=== PATIENT | male | born 1960 | race Caucasian/White ===

== ENCOUNTER 2016-02-11 15:33 | Emergency (ER) | payer OTHER ==
[2016-02-11 15:59] VITALS: TEMP 97.6
[2016-02-11] MEDS ORDERED: SODIUM CHLORIDE 0.9% 1,000 ML IV STA (17:45)
--- NOTE | 2016-02-11 17:50 | ED ---
Recheck HPI - General Chief Complaint: Recheck/Abnormal Lab/Rx Stated Complaint: Irregular Heartbeat/Pulse Time Seen by Provider: 02/11/16 17:34 Source: patient, family, RN notes reviewed, old records reviewed Mode of arrival: ambulatory Limitations: no limitations - History of Present Illness Initial Comments: This is a 55-year-old male with a history of recent diagnosis of TIA and rapid atrial fibrillation who presents today with complaints of episodes of not feeling well. He has had heart rates have been bouncing between the 70s and 90s his blood pressure is been up and down he's felt lethargic for last 2 days and sleeping a lot he has had chills and sweats feeling clammy at times. No overt chest pain no cough no rhinorrhea earaches sore throat no dysuria or hematuria. He normally has had higher blood pressure lately is been running in the low 100s MD Complaint: other - Related Data Home Medications Medication Instructions Recorded Confirmed Dexlansoprazole [Dexilant] 60 mg PO QAM 06/12/15 02/11/16 Lisinopril [Zestril] 10 mg PO QAM 06/12/15 02/11/16 Tadalafil [Cialis] 5 mg PO QAM 06/12/15 02/11/16 Tamsulosin [Flomax] 0.4 mg PO QAM 06/12/15 02/11/16 Varenicline [Chantix] 1 mg PO BID 06/12/15 02/11/16 Atenolol [Tenormin] 25 mg PO QAM 01/21/16 02/11/16 Aspirin EC [Ecotrin Low Dose] 81 mg PO DAILY 02/11/16 02/11/16 Previous Rx's Medication Instructions Recorded Acetaminophen Tab [Tylenol] 650 mg PO Q4HR PRN #0 tab 01/17/16 Propafenone [Rythmol] 150 mg PO TID #90 tab 01/17/16 Tapentadol HCl [Nucynta] 75 mg PO Q6HR PRN #120 tablet 01/27/16 Apixaban [Eliquis] 5 mg PO BID #60 tab 01/28/16 Atorvastatin [Lipitor] 80 mg PO HS #30 tab 01/28/16 Gabapentin 1,600 mg PO TID #42 tablet 01/28/16 Psyllium Husk 100% [Metamucil 6 gm PO DAILY #30 packet 01/28/16 Packet] Allergies Allergy/AdvReac Type Severity Reaction Status Date / Time No Known Allergies Allergy Verified 02/11/16 17:59 Review of Systems ROS Statement: Those systems with pertinent positive or pertinent negative responses have been documented in the HPI. ROS Other: All systems not noted in ROS Statement are negative. Past Medical History Past Medical History: Atrial Fibrillation, GERD/Reflux, Hypertension, Musculoskeletal Disorder, Prostate Disorder Additional Past Medical History / Comment(s): Degenerative disc dx in back, ENLARGED PROSTATE, testicular hypofunction, arthritis History of Any Multi-Drug Resistant Organisms: None Reported Past Surgical History: Back Surgery, Orthopedic Surgery, Tonsillectomy Additional Past Surgical History / Comment(s): @ 3 yrs old had a valve sx(OPEN HEART), back & neck fused, back sx, uvula removed, colonoscopy & egd (08/21/15) Past Anesthesia/Blood Transfusion Reactions: No Reported Reaction Past Psychological History: No Psychological Hx Reported Smoking Status: Current every day smoker Past Alcohol Use History: Daily Additional Past Alcohol Use History / Comment(s): smoking: started 1972-WAS 1 1/ 2 PPD NOW DOWN TO 1/2 PPD WITH CHANTIX. ETOH: "about 3 in a week" Past Drug Use History: None Reported - Past Family History Mother Family Medical History: Rheumatoid Arthritis ([place]) Father Family Medical History: Myocardial Infarction ([place]) General Exam - General Exam Comments Initial Comments: This is a well-developed well-nourished awake alert oriented history male Limitations: no limitations General appearance: alert, anxious Head exam: Present: atraumatic, normocephalic, normal inspection Eye exam: Present: normal appearance, PERRL, EOMI. Absent: scleral icterus, conjunctival injection, periorbital swelling ENT exam: Present: normal exam, mucous membranes moist Neck exam: Present: normal inspection. Absent: tenderness, meningismus, lymphadenopathy Respiratory exam: Present: normal lung sounds bilaterally. Absent: respiratory distress, wheezes, rales, rhonchi, stridor Cardiovascular Exam: Present: regular rate, normal rhythm, normal heart sounds. Absent: systolic murmur, diastolic murmur, rubs, gallop, clicks GI/Abdominal exam: Present: soft, normal bowel sounds. Absent: distended, tenderness, guarding, rebound, rigid Extremities exam: Present: normal inspection, full ROM, normal capillary refill. Absent: tenderness, pedal edema, joint swelling, calf tenderness Back exam: Present: normal inspection Neurological exam: Present: alert, oriented X3, CN II-XII intact Psychiatric exam: Present: normal affect, normal mood Skin exam: Present: warm, dry, intact, normal color. Absent: rash Course Vital Signs 02/11/16 02/11/16 15:51 17:58 Temperature 97.6 F Pulse Rate 59 L 74 Respiratory 18 16 Rate Blood Pressure 143/79 142/83 O2 Sat by Pulse 97 98 Oximetry Medical Decision Making - Medical Decision Making The patient remained asymptomatic since he arrived. I did discuss the findings with him and his . His lab work and x-rays pills EKG are unremarkable. Patient be discharged with instruction to follow-up with his doctor and return when necessary - Lab Data Result diagrams: 02/11/16 18:00 02/11/16 18:00 Lab Results 02/11/16 02/11/16 02/11/16 Range/Units 18:00 18:00 18:00 WBC 7.5 (3.8-10.6) k/uL RBC 4.56 (4.30-5.90) m/uL Hgb 14.2 (13.0-17.5) gm/dL Hct 41.2 (39.0-53.0) % MCV 90.3 (80.0-100.0) fL MCH 31.1 (25.0-35.0) pg MCHC 34.5 (31.0-37.0) g/dL RDW 13.3 (11.5-15.5) % Plt Count 227 (150-450) k/uL Neutrophils % 68 % Lymphocytes % 21 % Monocytes % 6 % Eosinophils % 4 % Basophils % 0 % Neutrophils # 5.1 (1.3-7.7) k/uL Lymphocytes # 1.6 (1.0-4.8) k/uL Monocytes # 0.4 (0-1.0) k/uL Eosinophils # 0.3 (0-0.7) k/uL Basophils # 0.0 (0-0.2) k/uL PT (9.0-12.0) sec INR (<1.1) APTT (22.0-30.0) sec Sodium 142 (137-145) mmol/L Potassium 4.0 (3.5-5.1) mmol/L Chloride 103 (98-107) mmol/L Carbon Dioxide 26 (22-30) mmol/L Anion Gap 13 mmol/L BUN 12 (9-20) mg/dL Creatinine 0.95 (0.66-1.25) mg/dL Est GFR (MDRD) Af Amer >60 (>60 ml/min/1.73 sqM) Est GFR (MDRD) Non-Af >60 (>60 ml/min/1.73 sqM) Glucose 92 (74-99) mg/dL Calcium 9.4 (8.4-10.2) mg/dL Magnesium 2.0 (1.6-2.3) mg/dL Total Bilirubin 0.7 (0.2-1.3) mg/dL AST 21 (17-59) U/L ALT 43 (21-72) U/L Alkaline Phosphatase 103 (38-126) U/L Total Creatine Kinase 72 (55-170) U/L CK-MB (CK-2) 0.5 (0.0-2.4) ng/mL CK-MB (CK-2) Rel Index 0.7 Troponin I <0.012 (0.000-0.034) ng/mL Total Protein 6.7 (6.3-8.2) g/dL Albumin 4.2 (3.5-5.0) g/dL TSH 1.580 (0.465-4.680) mIU/L 02/11/16 Range/Units 18:00 WBC (3.8-10.6) k/uL RBC (4.30-5.90) m/uL Hgb (13.0-17.5) gm/dL Hct (39.0-53.0) % MCV (80.0-100.0) fL MCH (25.0-35.0) pg MCHC (31.0-37.0) g/dL RDW (11.5-15.5) % Plt Count (150-450) k/uL Neutrophils % % Lymphocytes % % Monocytes % % Eosinophils % % Basophils % % Neutrophils # (1.3-7.7) k/uL Lymphocytes # (1.0-4.8) k/uL Monocytes # (0-1.0) k/uL Eosinophils # (0-0.7) k/uL Basophils # (0-0.2) k/uL PT 10.0 (9.0-12.0) sec INR 1.0 (<1.1) APTT 26.4 (22.0-30.0) sec Sodium (137-145) mmol/L Potassium (3.5-5.1) mmol/L Chloride (98-107) mmol/L Carbon Dioxide (22-30) mmol/L Anion Gap mmol/L BUN (9-20) mg/dL Creatinine (0.66-1.25) mg/dL Est GFR (MDRD) Af Amer (>60 ml/min/1.73 sqM) Est GFR (MDRD) Non-Af (>60 ml/min/1.73 sqM) Glucose (74-99) mg/dL Calcium (8.4-10.2) mg/dL Magnesium (1.6-2.3) mg/dL Total Bilirubin (0.2-1.3) mg/dL AST (17-59) U/L ALT (21-72) U/L Alkaline Phosphatase (38-126) U/L Total Creatine Kinase (55-170) U/L CK-MB (CK-2) (0.0-2.4) ng/mL CK-MB (CK-2) Rel Index Troponin I (0.000-0.034) ng/mL Total Protein (6.3-8.2) g/dL Albumin (3.5-5.0) g/dL TSH (0.465-4.680) mIU/L - Radiology Data Radiology results: report reviewed (Review the x-ray shows no acute findings.), image reviewed Disposition Clinical Impression: Feared condition not demonstrated, History of atrial fibrillation Disposition: HOME SELF-CARE Condition: Good Instructions: Atrial Fibrillation (ED)
[2016-02-11 18:05] LABS: Basophils % (A) 0 %; CH 31.9; CHCM 35.5; Eosinophils # (A) 0.3 k/uL (0-0.7); Eosinophils % (A) 4 %; HCT 41.2 % (39.0-53.0); HDW 2.69; HGB 14.2 gm/dL (13.0-17.5); Luc # (Auto) 0.12; Luc % (Auto) 2; Lymphocytes # (A) 1.6 k/uL (1.0-4.8); Lymphocytes % (A) 21 %; MCH 31.1 pg (25.0-35.0); MCHC 34.5 g/dL (31.0-37.0); MCV 90.3 fL (80.0-100.0); Mean Platelet Volume 6.6; Monocytes # (A) 0.4 k/uL (0-1.0); Monocytes % (A) 6 %; Neutrophils # (A) 5.1 k/uL (1.3-7.7); Neutrophils % (A) 68 %; RBC 4.56 m/uL (4.30-5.90); RDW 13.3 % (11.5-15.5); WBC 7.5 k/uL (3.8-10.6); WBC (Perox) 7.53
[2016-02-11 18:16] LABS: Partial Thromboplastin Time 26.4 sec (22.0-30.0)
[2016-02-11 18:22] LABS: ALT 43 U/L (21-72); AST 21 U/L (17-59); Alkaline Phosphatase 103 U/L (38-126); Anion Gap 13 mmol/L; Blood Urea Nitrogen 12 mg/dL (9-20); Calcium 9.4 mg/dL (8.4-10.2); Carbon Dioxide 26 mmol/L (22-30); Chloride 103 mmol/L (98-107); Glucose 92 mg/dL (74-99); Non-African American GFR(MDRD) >60 (>60 ml/min/1.73 sqM); Sodium 142 mmol/L (137-145); Total Bilirubin 0.7 mg/dL (0.2-1.3); Total Protein 6.7 g/dL (6.3-8.2)
[2016-02-11 18:23] LABS: Creatine Kinase 72 U/L (55-170)
[2016-02-11 18:36] LABS: Creatine Kinase MB 0.5 ng/mL (0.0-2.4); Troponin I <0.012 ng/mL (0.000-0.034)
--- NOTE | 2016-02-11 19:36 | XR ---
EXAMINATION TYPE: XR chest 2V DATE OF EXAM: 02/11/2016 7:12 PM COMPARISON: Prior chest x-ray dating January 2016 HISTORY: Atrial fibrillation, dysrhythmia TECHNIQUE: Frontal and lateral views of the chest are obtained. FINDINGS: There is no focal air space opacity, pleural effusion, or pneumothorax seen. The cardiac silhouette size is within normal limits. Postop changes noted to the cervical spine. There are overl divya cardiac leads. Patient is rotated. Some prominent interstitial markings are not significantly ch anged. There is deformity of the posterior left fourth rib as on prior exam. Prominent lung markings suggestive of underlying COPD. The osseous structures are intact. IMPRESSION: Stable exam, no acute abnormality.
[2016-02-11 20:19] VITALS: BP 161/96; PULSE 73; RESP 18
== END 2016-02-11 20:18 | disposition home or self-care (01) ==
LOC: EC 15:33
DX: I48.91 Unspecified atrial fibrillation (principal); I10 Essential (primary) hypertension; K21.9 Gastro-esophageal reflux disease without esophagitis; N40.0 Benign prostatic hyperplasia without lower urinary tract symptoms; F17.200 Nicotine dependence, unspecified, uncomplicated; Z71.1 Person with feared health complaint in whom no diagnosis is made; Z79.01 Long term (current) use of anticoagulants; Z79.82 Long term (current) use of aspirin; Z79.899 Other long term (current) drug therapy
CPT/HCPCS: 36415; 71020; 80053; 82550; 82553; 83735; 84443; 84484; 85025; 85610; 85730; 93005; 96372; 99283

== ENCOUNTER → 2016-03-02 | Outpatient (CLI) | payer OTHER ==
[2016-03-02 11:49] LABS: Partial Thromboplastin Time 28.4 sec (22.0-30.0)
== END | disposition home or self-care (01) ==
LOC: LABWHC1 11:14
PROVIDERS: ATTEND Physical Medicine & Rehabilitation
DX: M54.5 Low back pain (principal); G89.29 Other chronic pain; G89.4 Chronic pain syndrome; M47.817 Spondylosis without myelopathy or radiculopathy, lumbosacral region; M51.17 Intervertebral disc disorders with radiculopathy, lumbosacral region; M54.2 Cervicalgia; F10.10 Alcohol abuse, uncomplicated; M54.30 Sciatica, unspecified side
CPT/HCPCS: 36415; 85610; 85730

== ENCOUNTER → 2016-03-03 | Outpatient (CLI) | payer OTHER | END | disposition home or self-care (01) | LOC: LABWHC1 16:10 | PROVIDERS: ATTEND Physical Medicine & Rehabilitation | DX: M51.17 Intervertebral disc disorders with radiculopathy, lumbosacral region (principal); M47.817 Spondylosis without myelopathy or radiculopathy, lumbosacral region; F10.10 Alcohol abuse, uncomplicated; G89.4 Chronic pain syndrome; M54.5 Low back pain; M54.2 Cervicalgia | CPT/HCPCS: 36415; 84402; 84403 ==

== ENCOUNTER → 2016-03-05 | Outpatient (CLI) | payer OTHER ==
[2016-03-05 16:20] LABS: EKG EKG PERFORMED
[2016-03-05 17:12] LABS: Basophils % (A) 1 %; CH 31.8; CHCM 34.8; Eosinophils # (A) 0.2 k/uL (0-0.7); Eosinophils % (A) 4 %; HCT 39.8 % (39.0-53.0); HDW 2.69; HGB 13.3 gm/dL (13.0-17.5); Luc # (Auto) 0.09; Luc % (Auto) 2; Lymphocytes # (A) 1.5 k/uL (1.0-4.8); Lymphocytes % (A) 28 %; MCH 30.5 pg (25.0-35.0); MCHC 33.3 g/dL (31.0-37.0); MCV 91.6 fL (80.0-100.0); Mean Platelet Volume 7.6; Monocytes # (A) 0.3 k/uL (0-1.0); Monocytes % (A) 6 %; Neutrophils # (A) 3.3 k/uL (1.3-7.7); Neutrophils % (A) 60 %; RBC 4.35 m/uL (4.30-5.90); RDW 12.9 % (11.5-15.5); WBC 5.5 k/uL (3.8-10.6); WBC (Perox) 5.99
[2016-03-05 17:23] LABS: INR 0.9 (<1.1); Partial Thromboplastin Time 25.4 sec (22.0-30.0); Prothrombin Time 9.7 sec (9.0-12.0)
[2016-03-05 17:36] LABS: ALT 91 U/L (21-72); AST 49 U/L (17-59); Alkaline Phosphatase 99 U/L (38-126); Anion Gap 12 mmol/L; Blood Urea Nitrogen 16 mg/dL (9-20); Calcium 9.2 mg/dL (8.4-10.2); Carbon Dioxide 27 mmol/L (22-30); Chloride 102 mmol/L (98-107); Glucose 85 mg/dL (74-99); Non-African American GFR(MDRD) >60 (>60 ml/min/1.73 sqM); Potassium 4.5 mmol/L (3.5-5.1); Sodium 141 mmol/L (137-145); Total Protein 6.9 g/dL (6.3-8.2)
== END | disposition home or self-care (01) ==
LOC: LABPAT 16:08
PROVIDERS: ATTEND Orthopaedic Surgery
DX: Z01.810 Encounter for preprocedural cardiovascular examination (principal); Z01.812 Encounter for preprocedural laboratory examination
CPT/HCPCS: 80053; 85025; 85610; 85730; 87070; 93005

== ENCOUNTER 2016-03-23 15:20 | Inpatient (IN) | payer OTHER ==
[2016-03-18 13:35] VITALS: BMI 26.9
[2016-03-24] MEDS ORDERED: ACETAMINOPHEN TAB 500 MG TAB PO ONE (05:00)
[2016-03-24] MEDS ORDERED: MELOXICAM 7.5 MG TAB PO ONE (05:00)
[2016-03-24] MEDS ORDERED: TRANEXAMIC ACID 1,000 MG in SODIUM CHLORIDE 0.9% 100 ML IVPB ONE ×4 (05:00)
[2016-03-24] MEDS ORDERED: ceFAZolin 2 GM in SODIUM CHLORIDE 0.9% 100 ML IVPB ONE (05:00)
[2016-03-24] MEDS ORDERED: LACTATED RINGERS 1,000 ML IV SCH (05:35)
[2016-03-24] MEDS ORDERED: ONDANSETRON 4 MG/2 ML VIAL IVP ONE (05:35)
[2016-03-24] MEDS ORDERED: MIDAZOLAM 2 MG/2 ML VIAL IV PRN (05:35)
[2016-03-24] MEDS ORDERED: DEXAMETHASONE SOD PHOSPHATE 10 MG/ML 1 ML VIAL IV ONE (05:35)
[2016-03-24] MEDS ORDERED: SCOPOLAMINE 1.5MG/72HR PATCH TRANSDERM ONE (05:35)
[2016-03-24] MEDS ORDERED: fentaNYL (PF) 50 MCG/ML 2 ML AMP ONE (11:33)
[2016-03-24] MEDS ORDERED: SUCCINYLCHOLINE CHLORIDE 100 MG/5 ML SYR IV ONE (11:33)
[2016-03-24] MEDS ORDERED: ROCURONIUM BROMIDE 10 MG/ML 10 ML VIAL IV ONE (11:33)
[2016-03-24] MEDS ORDERED: PROPOFOL 10 MG/ML 20 ML VIAL IV ONE (11:33)
[2016-03-24] MEDS ORDERED: NEOSTIGMINE 1 MG/ML 10 ML VIAL ONE (11:33)
[2016-03-24] MEDS ORDERED: HYDROmorphone (PF) 1 MG/ML ONE (11:33)
[2016-03-24] MEDS ORDERED: GLYCOPYRROLATE 0.2 MG/ML 2 ML VIAL ONE (11:33)
[2016-03-24] MEDS ORDERED: MIDAZOLAM 2 MG/2 ML VIAL ONE (11:33)
[2016-03-24] MEDS ORDERED: LIDOCAINE 1% INJ 10MG/ML (20 ML MDV) ONE (11:33)
[2016-03-24] MEDS: ROPIVACAINE 246.25 MG, EPINEPHrine 0.5 MG, KETOROLAC 30 MG, cloNIDine HCL/PF 80 MCG, WA... MISCELLANE ONE ×10 (12:08→12:28)
[2016-03-24] MEDS ORDERED: ceFAZolin 3,000 MG in SODIUM CHLORIDE 0.9% IRRIGATIO 3,000 ML IRRIGATION ONE (12:08)
[2016-03-24] MEDS ORDERED: LACTATED RINGERS 1,000 ML IV ONE ×2 (12:20→14:36)
--- NOTE | 2016-03-24 12:58 | P.OP ---
Date of Procedure: 03/24/16 Preoperative Diagnosis: Severe osteoarthritis right knee Postoperative Diagnosis: Severe osteoarthritis right knee Procedure(s) Performed: Right total knee arthroplasty Implants: [employer] Oxinium femoral component size 5, left [employer] Claudia II left nonporous tibial baseplate size 4 [employer] size 15 mm Legion XLPE dished articular insert, size 3-4 [employer] Claudia II resurfacing patellar component, 32 mm All components were cemented using Tucker bone cement.. The articulation is ceramic on polyethylene. Anesthesia: GETA Surgeon: Schuyler Vang Marine Engine Machinist #1: Nicky Saldivar Estimated Blood Loss (ml): 50 Pathology: other (Bone and cartilage) Condition: stable Disposition: PACU Indications for Procedure: After failure of conservative treatment we discussed the surgical and nonsurgical treatment options at length. Patient wishes to proceed with a total knee arthroplasty. Complications specific to this procedure were discussed at length, including but not limited to infection, bleeding, stiffness , and nerve injury. Patient is aware of all these complications and informed consent was obtained Operative Findings: The operative findings are consistent with severe osteoarthritis of the right knee Description of Procedure: Patient was seen in the preoperative area consent was reviewed and operative site was marked with a skin marker. Patient was then brought to the operating room and given preoperative antibiotics intravenously. A general anesthetic was administered by the anesthesia department. A tourniquet was placed on the upper thigh and the lower extremity was prepped and draped in usual sterile fashion. A gram of transexamic acid was given. A universal timeout was then performed which confirmed the patient's name, surgical site, ALLERGIES, and consent. The lower extremity was then exsanguinated and tourniquet was inflated to 250 mmHg. A standard and anterior midline approach to the knee was performed. The skin and subcutaneous tissue was dissected down to the patellar tendon. A medial parapatellar arthrotomy was then performed. The knee was then extended, the patellar was everted, and the knee was again flexed. Anterior horns of both menisci were excised, and a minimal medial release was performed secondary to the valgus deformity of the knee. On gross visual inspection, there was complete loss of articular cartilage in the lateral and patellofemoral joint spaces. There were multiple periarticular osteophytes which were then removed with a Ronguer. The femoral canal was then opened with the appropriate drill, and the intramedullary femoral cutting guide was then placed and set for 4 of valgus. The distal femoral cutting block was then pinned in place, and the distal femur was then cut. The cutting block was then removed and the cut was checked for flatness. Next, the sizing guide was then placed and set for 3 external rotation based off of the epicondylar axis and Whitesides line. After the femur was sized, the appropriate 4-in-1 cutting block was then pinned in place. The anterior condyles were cut without notching. The posterior and chamfer cuts were performed while protecting the collateral ligaments. The cutting block was then removed, and the femoral canal was plugged with autologous bone. Attention was then directed to the tibia. The remaining ACL was removed with a Ronguer, and the tibia was then gently subluxed forward with a large bent knee retractor. Any remaining menisci was excised. The posterior lateral corner was cauterized in order to cauterize the lateral geniculate artery. The extra medullary tibial cutting guide was then placed, set for the appropriate rotation , slope, and depth of resection. The proximal tibia cutting guide was then pinned in place. Proximal tibia was then cut and sized. Next trials were then placed with the appropriate-sized insert. The knee was able to fully extend and flex to 130 and was stable throughout all range of motion. The knee was then extended, patella everted. Patella was then measured, and then using an osteotomy guide, the patella was cut at the appropriate level. The patella was then measured and drilled and the patella trial was then placed. The knee was then taken through range of motion with the patella trial and the patella tracked normally. The knee was then extended patella trial was then removed and the patella was everted. Knee was then flexed and lug holes were drilled through the femoral trial and the femoral trial was then removed. The tibial was then exposed, and the tibial broach guide was then pinned in place after it was set for the appropriate rotation to allow for the most coverage without overhang. The tibia was then broached. The cut surfaces of bone were then irrigated with pulsatile lavage. The posterior structures were injected with the ropivacaine solution. The knee was also irrigated with Irrisept solution. The components were then opened, the cement was mixed, and the components were then cemented in place. The cement was allowed to harden with the knee in full extension. While the cement was hardening, the remaining soft tissues were injected with the ropivacaine solution. After the cemented hardened. The tourniquet was released, and hemostasis was obtained. A second gram of transexamic acid was given. The knee was again irrigated. The knee was again taken through range of motion and found to be stable throughout all range of motion of 0-130, and the patella tracked normally. The fascia was then closed with #2 strata fix suture. The subcutaneous tissue was closed with 3-0 Vicryl and 3-0 strata fix. Dermabond tape was used for the skin, and the patient was placed in a sterile dressing. Patient was then transferred to recovery room in stable condition. The mechanic assistant CARLIN Davis was required due the complexity surgery and the need for a skilled assistant professor surgical technology. She assisted in positioning, draping , retraction, and closure of the wound.
[2016-03-24] MEDS ORDERED: HYDROmorphone 1 MG/ML 1 ML SYRINGE IVP PRN ×3 (13:17)
[2016-03-24] MEDS ORDERED: NALOXONE 0.4 MG/ML 1 ML VIAL IV PRN (13:17)
[2016-03-24] MEDS ORDERED: ONDANSETRON 4 MG/2 ML VIAL IVP PRN (13:17)
[2016-03-24] MEDS ORDERED: hydrOXYzine PAMOATE 25 MG CAP PO PRN (13:17)
[2016-03-24] MEDS ORDERED: DIAZEPAM 5 MG TAB PO PRN ×2 (13:17)
[2016-03-24] MEDS ORDERED: BISACODYL 10 MG SUPP RECTAL PRN (13:17)
[2016-03-24] MEDS ORDERED: MAGNESIUM HYDROXIDE 2,400 MG/10 ML CUP PO PRN (13:17)
[2016-03-24] MEDS: HYDROmorphone 1 MG/ML 1 ML SYRINGE IVP PRN ×7 (13:42→16:13)
--- NOTE | 2016-03-24 13:50 | XR ---
EXAMINATION TYPE: XR knee limited RT DATE OF EXAM: 03/24/2016 1:45 PM COMPARISON: NONE TECHNIQUE: One view submitted HISTORY: Post op FINDINGS: There is a prosthetic knee in near anatomic alignment. There is soft tissue edema and emphysema. IMPRESSION: 1. Postoperative change. Appears in near-anatomic alignment
[2016-03-24] MEDS: HYDROmorphone PCA 5 MG/25 ML SYRINGE IV PRN ×2 (18:08→20:37)
[2016-03-24] MEDS: ceFAZolin 2 GM in SODIUM CHLORIDE 0.9% 100 ML IVPB SCH (19:48)
[2016-03-24] MEDS: SENNOSIDES-DOCUSATE SODIUM 1 EACH TAB PO SCH (19:48)
[2016-03-24] MEDS: LACTATED RINGERS 1,000 ML IV SCH (20:36)
[2016-03-25] MEDS ORDERED: ENOXAPARIN 100 MG/ML SYRINGE SQ STA (01:55)
[2016-03-25] MEDS ORDERED: ENOXAPARIN 40 MG/0.4 ML SYRINGE SQ STA (02:04)
[2016-03-25] MEDS: ceFAZolin 2 GM in SODIUM CHLORIDE 0.9% 100 ML IVPB SCH (02:43)
[2016-03-25] MEDS: LACTATED RINGERS 1,000 ML IV SCH ×2 (02:44→19:39)
[2016-03-25] MEDS: HYDROmorphone PCA 5 MG/25 ML SYRINGE IV PRN ×5 (05:28→23:18)
[2016-03-25 07:22] LABS: Basophils % (A) 0 %; CH 31.6; CHCM 34.5; Eosinophils % (A) 0 %; HDW 2.61; HGB 11.8 gm/dL (13.0-17.5); Luc # (Auto) 0.15; Luc % (Auto) 2; Lymphocytes # (A) 1.2 k/uL (1.0-4.8); Lymphocytes % (A) 13 %; MCHC 33.6 g/dL (31.0-37.0); MCV 92.1 fL (80.0-100.0); Monocytes # (A) 0.5 k/uL (0-1.0); Monocytes % (A) 5 %; Neutrophils # (A) 7.8 k/uL (1.3-7.7); Neutrophils % (A) 81 %; RDW 12.6 % (11.5-15.5); WBC 9.6 k/uL (3.8-10.6); WBC (Perox) 10.02
[2016-03-25] MEDS ORDERED: GABAPENTIN 400 MG CAP PO PRN (08:44)
--- NOTE | 2016-03-25 09:01 | P.PN ---
Subjective Principal diagnosis: Status post right total knee arthroplasty This is a pleasant 55-year-old gentleman who is status post right total knee arthroplasty. Today is postoperative day #1. The patient was seen and evaluated with Dr. Schuyler Vang. He complains of some sciatic type pain which is chronic. He is currently on the PHOTOGRAPHIC DOUBLE pump. He has had some wheezing as well which he states is not unusual for him. Updrafts were ordered. He has no other new complaints at this time. Objective - Vital Signs Vital signs: Vital Signs Temp 98.3 F 03/25/16 07:00 Pulse 92 03/25/16 08:00 Resp 16 03/25/16 08:00 BP 116/80 03/25/16 07:00 Pulse Ox 94 L 03/25/16 07:00 Intake & Output 03/24/16 03/25/16 03/25/16 18:59 06:59 18:59 Intake Total 2301 1825 250 Output Total 50 650 Balance 2251 1175 250 Weight 95.254 kg Intake: IV 2301 Intake, IV Titration 1025 Amount Lactated Ringers 1,000 ml 825 @ 75 mls/hr IV .[id number] [facility] Rx#:[id number] ceFAZolin 2 gm In Sodium 200 Chloride 0.9% 100 ml @ 100 mls/hr IVPB ONCE ONE Rx#:[id number] Oral 800 250 Output: Post Void Residual 650 Estimated Blood Loss 50 - Exam The patient does not appear in acute distress. Alert and orientated 3. Dressing is clean dry and intact. Incision appears fine with no erythema or active drainage. He does have soft tissue swelling about the right knee. Calf is soft and nontender. Good foot and ankle motion without difficulty. Sensation and circulatory status is intact. - Labs CBC & Chem 7: 03/25/16 06:44 Labs: Abnormal Lab Results - Last 24 Hours (Table) 03/25/16 Range/Units 06:44 RBC 3.80 L (4.30-5.90) m/uL Hgb 11.8 L (13.0-17.5) gm/dL Hct 35.0 L (39.0-53.0) % Neutrophils # 7.8 H (1.3-7.7) k/uL Assessment and Plan (1) Status post right knee replacement Status: Acute (2) Primary osteoarthritis of right knee Status: Acute Plan: 1. Continue with routine postoperative care. Apply compressive Chucho bandage right knee 2. Anticoagulation as directed by cardiology 3. Physical therapy and CPM today. 4. Appreciate input from medicine. 5. Anticipate discharge to home with home care likely tomorrow.
[2016-03-25] MEDS: ALBUTEROL NEBULIZED 2.5 MG/3 ML INHALATION PRN ×2 (09:12→19:15)
[2016-03-25] MEDS: LISINOPRIL 10 MG TAB PO SCH (09:33)
[2016-03-25] MEDS: PROPAFENONE 150 MG TAB PO SCH ×3 (09:33→20:55)
[2016-03-25] MEDS: ATENOLOL 25 MG TAB PO SCH (09:33)
[2016-03-25] MEDS: PSYLLIUM HUSK 100% 6 GM PACKET PO SCH (09:34)
[2016-03-25] MEDS: TAMSULOSIN 0.4 MG CAP.ER.24H PO SCH (09:34)
[2016-03-25] MEDS: VARENICLINE 1 MG TAB PO SCH ×2 (09:34→19:40)
[2016-03-25] MEDS ORDERED: APIXABAN 5 MG TAB PO ONE (10:37)
[2016-03-25] MEDS: MELOXICAM 7.5 MG TAB PO SCH (11:11)
[2016-03-25] MEDS: ACETAMINOPHEN TAB 325 MG TAB PO PRN (11:13)
--- NOTE | 2016-03-25 12:22 | P.CRDCN ---
History of Present Illness Consult date: 03/25/16 History of present illness: This is a pleasant 55-year-old gentleman who sees Dr. Sanford as an outpatient with a past medical history significant for hypertension, dyslipidemia, paroxysmal atrial fibrillation, and history of stroke, was admitted to the hospital and underwent right knee arthroplasty yesterday which was uneventful. From the cardiac vascular standpoint overview, he is asymptomatic. He denies having any chest pain or discomfort or difficulty breathing. On physical examination, he seems to be in a normal sinus mechanism. The patient was started on anticoagulation with Eliquis today and I agree with it. Past Medical History Past Medical History: Atrial Fibrillation, GERD/Reflux, Hypertension, Osteoarthritis (OA), Prostate Disorder Additional Past Medical History / Comment(s): stroke-01/28/16, varicose veins, ENLARGED PROSTATE, testicular hypofunction History of Any Multi-Drug Resistant Organisms: None Reported Past Surgical History: Back Surgery, Cholecystectomy, Orthopedic Surgery, Tonsillectomy Additional Past Surgical History / Comment(s): heart valve sx(OPEN HEART) at age 3, neck fusion ,uvula removed, Past Anesthesia/Blood Transfusion Reactions: No Reported Reaction Past Psychological History: No Psychological Hx Reported Smoking Status: Former smoker Past Alcohol Use History: Occasional Additional Past Alcohol Use History / Comment(s): started smoking 02/09 PPD , quit 01/28/16 Past Drug Use History: None Reported - Past Family History Mother Family Medical History: No Reported History Father Family Medical History: Myocardial Infarction (MS) Medications and Allergies Home Medications Medication Instructions Recorded Confirmed Type Dexlansoprazole [Dexilant] 60 mg PO QAM 06/12/15 03/24/16 History Lisinopril [Zestril] 10 mg PO QAM 06/12/15 03/24/16 History Tadalafil [Cialis] 2.5 mg PO QAM 06/12/15 03/24/16 History Tamsulosin [Flomax] 0.4 mg PO QAM 06/12/15 03/24/16 History Varenicline [Chantix] 1 mg PO BID 06/12/15 03/24/16 History Atenolol [Tenormin] 25 mg PO QAM 01/21/16 03/24/16 History Enoxaparin [Lovenox] 100 mg SQ DIRECTED 03/18/16 03/24/16 History Gabapentin 1,600 mg PO Q4-6H PRN 03/18/16 03/24/16 History Nortriptyline [Pamelor] 100 mg PO HS 03/18/16 03/24/16 History Tapentadol HCl [Nucynta] 50 mg PO QID PRN 03/18/16 03/24/16 History Allergies Allergy/AdvReac Type Severity Reaction Status Date / Time No Known Allergies Allergy Verified 03/24/16 19:44 Physical Exam Vitals: Vital Signs Temp Pulse Pulse Pulse Resp BP Pulse Ox 03/25/16 12:03 98.1 F 89 16 138/75 93 L 03/25/16 09:25 90 03/25/16 09:12 90 03/25/16 08:00 92 16 03/25/16 07:00 98.3 F 92 16 116/80 94 L 03/25/16 01:40 98.0 F 92 16 93/64 94 L 03/24/16 21:21 96 03/24/16 20:00 97.8 F 79 16 120/79 90 L 03/24/16 18:39 85 16 156/70 96 03/24/16 18:25 73 16 133/86 96 03/24/16 18:06 73 16 142/95 96 03/24/16 17:31 73 16 146/96 96 03/24/16 17:00 82 16 148/85 96 03/24/16 16:31 142/80 03/24/16 16:29 70 16 130/90 96 03/24/16 16:14 72 16 130/90 96 03/24/16 16:00 67 16 140/88 96 03/24/16 15:45 75 16 143/85 96 03/24/16 15:30 79 16 142/81 96 03/24/16 15:15 81 16 133/91 96 03/24/16 15:00 74 16 131/80 96 03/24/16 14:45 73 16 137/86 96 03/24/16 14:33 68 16 136/75 96 03/24/16 14:16 66 20 129/79 94 L 03/24/16 14:00 68 20 141/77 94 L 03/24/16 13:42 73 20 141/81 94 L 03/24/16 13:30 73 20 127/72 94 L 03/24/16 13:16 97.6 F 73 20 127/72 94 L Intake and Output 03/24/16 03/25/16 03/25/16 22:59 06:59 14:59 Intake Total 1000 825 250 Output Total 650 Balance 1000 175 250 Intake: Intake, IV Titration 400 625 Amount Lactated Ringers 1,000 ml 300 525 @ 75 mls/hr IV .[id number] [facility] Rx#:[id number] ceFAZolin 2 gm In Sodium 100 100 Chloride 0.9% 100 ml @ 100 mls/hr IVPB ONCE ONE Rx#:[id number] Oral 600 200 250 Output: Post Void Residual 650 Other: Weight 95.254 kg Patient Weight 03/26/16 06:59 Weight 95.254 kg - Constitutional General appearance: no acute distress - Respiratory Respiratory: bilateral: CTA - Cardiovascular Rhythm: regular Heart sounds: normal: S1, S2 Results 03/25/16 06:44 CBC 03/25/16 Range/Units 06:44 WBC 9.6 (3.8-10.6) k/uL RBC 3.80 L (4.30-5.90) m/uL Hgb 11.8 L (13.0-17.5) gm/dL Hct 35.0 L (39.0-53.0) % Plt Count 194 (150-450) k/uL Current Medications Generic Name Dose Route Start Last Admin Trade Name Freq PRN Reason Stop Dose Admin Acetaminophen 650 mg 03/24/16 13:30 03/25/16 11:13 Tylenol Tab PO 650 mg Q6HR PRN Administration Fever and/ or Mild Pain Albuterol Sulfate 2.5 mg 03/25/16 01:57 03/25/16 09:12 Ventolin Nebulized INHALATION 2.5 mg RT-TID PRN Administration Shortness Of Breath Or Wheezing Apixaban 5 mg 03/25/16 21:00 Eliquis PO BID REED Atenolol 25 mg 03/25/16 09:00 03/25/16 09:33 Tenormin PO 25 mg QAM REED Administration Atorvastatin Calcium 80 mg 03/25/16 21:00 Lipitor PO HS REED Bisacodyl 10 mg 03/24/16 13:17 Dulcolax RECTAL DAILY PRN Constipation Diazepam 2.5 mg 03/24/16 13:17 Valium PO Q8HR PRN Mild Spasms Diazepam 5 mg 03/24/16 13:17 Valium PO Q8HR PRN Moderate to Severe Spasms Gabapentin 1,600 mg 03/25/16 08:44 Neurontin PO Q4HR PRN Pain Hydromorphone HCl 1 mg 03/24/16 13:17 Dilaudid IVP Q3HR PRN Pain Scale 7 to 10 Hydromorphone HCl 0.5 mg 03/24/16 13:17 Dilaudid IVP Q3HR PRN Pain Scale 4 to 6 Hydromorphone HCl 0.25 mg 03/24/16 13:17 Dilaudid IVP Q3HR PRN Pain Scale 1 to 3 Hydromorphone HCl 5 mg 03/24/16 13:30 03/25/16 09:23 Dilaudid Service Now Developer IV 5 mg DIRECTED PRN Administration PER PROTOCOL Protocol Hydroxyzine Pamoate 25 mg 03/24/16 13:17 Vistaril PO Q4HR PRN Nausea, Anxiety, Pain Control Lactated Ringer's 1,000 mls @ 75 mls/hr 03/24/16 13:30 03/25/16 02:44 Lactated Ringers IV 75 mls/hr .[id number] REED Administration Lisinopril 10 mg 03/25/16 09:00 03/25/16 09:33 Zestril PO 10 mg QAM REED Administration Magnesium Hydroxide 2,400 mg 03/24/16 13:17 03/25/16 07:21 Milk Of Magnesia PO 2,400 mg DAILY PRN Administration Constipation Meloxicam 7.5 mg 03/25/16 09:00 03/25/16 11:11 Mobic PO 7.5 mg DAILY REED Administration Naloxone HCl 0.2 mg 03/24/16 13:17 Narcan IV Q2M PRN Opioid Reversal Nortriptyline HCl 100 mg 03/25/16 21:00 Pamelor PO HS REED Ondansetron HCl 4 mg 03/24/16 13:17 Zofran IVP Q8HR PRN Nausea And Vomiting Propafenone HCl 150 mg 03/25/16 09:00 03/25/16 09:33 Rythmol PO 150 mg TID REED Administration Psyllium Hydrophilic Mucilloid 6 gm 03/25/16 09:00 03/25/16 09:34 Metamucil PO Not Given DAILY REED Senna/Docusate Sodium 2 each 03/24/16 21:00 03/24/16 19:48 Senokot-S PO 2 each HS REED Administration Tamsulosin HCl 0.4 mg 03/25/16 09:00 03/25/16 09:34 Flomax PO 0.4 mg QAM REED Administration Varenicline 1 mg 03/25/16 09:00 03/25/16 09:34 Chantix PO 1 mg BID REED Administration Intake and Output 03/24/16 03/25/16 03/25/16 22:59 06:59 14:59 Intake Total 1000 825 250 Output Total 650 Balance 1000 175 250 Intake: Intake, IV Titration 400 625 Amount Lactated Ringers 1,000 ml 300 525 @ 75 mls/hr IV .[id number] [facility] Rx#:[id number] ceFAZolin 2 gm In Sodium 100 100 Chloride 0.9% 100 ml @ 100 mls/hr IVPB ONCE ONE Rx#:[id number] Oral 600 200 250 Output: Post Void Residual 650 Other: Weight 95.254 kg Patient Weight 03/26/16 06:59 Weight 95.254 kg 03/25/16 06:44 Assessment and Plan Plan: Assessment #1 status post right knee arthroplasty #2 paroxysmal atrial fibrillation #4 hypertension #5 dyslipidemia The plan #1 agree about starting the patient on Eliquis #2 continue following up with him
--- NOTE | 2016-03-25 14:33 | P.CONS ---
History of Present Illness - Reason for Consult Consult date: 03/24/16 Medical management Requesting physician: Nicky Saldivar - Chief Complaint Right knee pain - History of Present Illness Patient is a 55-year-old male well known to Dr. Lee with medical history significant for paroxysmal atrial fibrillation, GERD, hypertension, degenerative disc disease, BPH, osteoarthritis of the right knee, lumbar radiculopathy, and chronic pain syndrome. Patient presented to the hospital for elective right total knee arthroplasty. Patient tolerated procedure well. Patient is evaluated on the surgical unit where he is currently sitting up in the chair. Patient complains of mild throat pain after intubation. Patient is also complaining of chronic sciatica pain to his right lumbar region radiating down his left leg. Denies chills, fevers, nausea, vomiting, shortness of breath, chest pain, or abdominal pain. Denies diarrhea or constipation. Patient is urinating without difficulty. Patient is currently using his [employer] pump for pain control. Past Medical History Past Medical History: Atrial Fibrillation, GERD/Reflux, Hypertension, Osteoarthritis (OA), Prostate Disorder Additional Past Medical History / Comment(s): stroke-01/28/16, varicose veins, ENLARGED PROSTATE, testicular hypofunction History of Any Multi-Drug Resistant Organisms: None Reported Past Surgical History: Back Surgery, Cholecystectomy, Orthopedic Surgery, Tonsillectomy Additional Past Surgical History / Comment(s): heart valve sx(OPEN HEART) at age 3, neck fusion ,uvula removed, Past Anesthesia/Blood Transfusion Reactions: No Reported Reaction Past Psychological History: No Psychological Hx Reported Smoking Status: Former smoker Past Alcohol Use History: Occasional Additional Past Alcohol Use History / Comment(s): started smoking 02/09 PPD , quit 01/28/16 Past Drug Use History: None Reported - Past Family History Mother Family Medical History: No Reported History Father Family Medical History: Myocardial Infarction (NM) Medications and Allergies Home Medications Medication Instructions Recorded Confirmed Type Dexlansoprazole [Dexilant] 60 mg PO QAM 06/12/15 03/24/16 History Lisinopril [Zestril] 10 mg PO QAM 06/12/15 03/24/16 History Tadalafil [Cialis] 2.5 mg PO QAM 06/12/15 03/24/16 History Tamsulosin [Flomax] 0.4 mg PO QAM 06/12/15 03/24/16 History Varenicline [Chantix] 1 mg PO BID 06/12/15 03/24/16 History Atenolol [Tenormin] 25 mg PO QAM 01/21/16 03/24/16 History Enoxaparin [Lovenox] 100 mg SQ DIRECTED 03/18/16 03/24/16 History Gabapentin 1,600 mg PO Q4-6H PRN 03/18/16 03/24/16 History Nortriptyline [Pamelor] 100 mg PO HS 03/18/16 03/24/16 History Tapentadol HCl [Nucynta] 50 mg PO QID PRN 03/18/16 03/24/16 History Allergies Allergy/AdvReac Type Severity Reaction Status Date / Time No Known Allergies Allergy Verified 03/24/16 19:44 Physical Exam Vitals: Vital Signs Temp Pulse Pulse Pulse Resp BP Pulse Ox 03/25/16 12:03 98.1 F 89 16 138/75 93 L 03/25/16 09:25 90 03/25/16 09:12 90 03/25/16 08:00 92 16 03/25/16 07:00 98.3 F 92 16 116/80 94 L 03/25/16 01:40 98.0 F 92 16 93/64 94 L 03/24/16 21:21 96 03/24/16 20:00 97.8 F 79 16 120/79 90 L 03/24/16 18:39 85 16 156/70 96 03/24/16 18:25 73 16 133/86 96 03/24/16 18:06 73 16 142/95 96 03/24/16 17:31 73 16 146/96 96 03/24/16 17:00 82 16 148/85 96 03/24/16 16:31 142/80 03/24/16 16:29 70 16 130/90 96 03/24/16 16:14 72 16 130/90 96 03/24/16 16:00 67 16 140/88 96 03/24/16 15:45 75 16 143/85 96 03/24/16 15:30 79 16 142/81 96 03/24/16 15:15 81 16 133/91 96 03/24/16 15:00 74 16 131/80 96 03/24/16 14:45 73 16 137/86 96 03/24/16 14:33 68 16 136/75 96 Intake and Output 03/24/16 03/25/16 03/25/16 22:59 06:59 14:59 Intake Total 1000 825 500 Output Total 650 300 Balance 1000 175 200 Intake: Intake, IV Titration 400 625 Amount Lactated Ringers 1,000 ml 300 525 @ 75 mls/hr IV .[id number] [id number] Rx#:[id number] ceFAZolin 2 gm In Sodium 100 100 Chloride 0.9% 100 ml @ 100 mls/hr IVPB ONCE ONE Rx#:[id number] Oral 600 200 500 Output: Urine 300 Post Void Residual 650 Other: Weight 95.254 kg Patient Weight 03/26/16 06:59 Weight 95.254 kg GENERAL: Pt awake and alert, well-appearing, well-nourished, and in no acute distress. HEAD: Atraumatic, normocephalic. EYES: Pupils equal and round, and reactive to light, sclera anicteric, conjunctiva are normal. ENT: Moist mucous membranes. NECK:Supple without lymphadenopathy or JVD. LUNGS: Breath sounds diminished with faint expiratory wheeze to auscultation bilaterally. HEART: Heart S1, S2, no S3 or S4. Regular rate and rhythm. No murmurs, rubs or gallops. ABDOMEN: Soft, nontender, nondistended, normoactive bowel sounds. EXTREMITIES: Palpable peripheral pulses. Right knee dressing dry and intact. NEUROLOGICAL: Pt oriented x 3. No focal deficits. Strength and sensation grossly intact. PSYCH: Normal mood, normal affect. SKIN: Warm, dry, intact. Normal turgor. No rashes or lesions. Results CBC & Chem 7: 03/25/16 06:44 Labs: Abnormal Lab Results - Last 24 Hours (Table) 03/25/16 Range/Units 06:44 RBC 3.80 L (4.30-5.90) m/uL Hgb 11.8 L (13.0-17.5) gm/dL Hct 35.0 L (39.0-53.0) % Neutrophils # 7.8 H (1.3-7.7) k/uL Assessment and Plan Plan: Impression: 1. Right knee osteoarthritis status post total right knee arthroplasty on 03/24. 2. Anemia, suspect secondary to acute blood loss and hemodilution. 3. Paroxysmal atrial fibrillation. 4. Degenerative disc disease. 5. Lumbar radiculopathy. 6. Chronic pain syndrome. 7. GERD. 8. Hypertension. 9. BPH. 10. History of nicotine dependence. 11. Dyslipidemia. Plan: Continue surgical management by orthopedic service. Home medications have been reviewed and resumed as appropriate. Continue current medications. Continue GI and DVT prophylaxis. Continue incentive spirometry 10 times while awake. Continue to follow with cardiology and orthopedic service. Repeat CBC in a.m. The above impression and plan have been discussed and directed by Dr Lee. Fitz CHAMBERLAIN acting as scribe for Dr. Lee.
[2016-03-25] MEDS: SENNOSIDES-DOCUSATE SODIUM 1 EACH TAB PO SCH (19:40)
[2016-03-25] MEDS: APIXABAN 5 MG TAB PO SCH (20:55)
[2016-03-25] MEDS ORDERED: ATORVASTATIN 80 MG TAB PO SCH (21:00)
[2016-03-25] MEDS ORDERED: NORTRIPTYLINE 25 MG CAP PO SCH (21:00)
[2016-03-26] MEDS: LACTATED RINGERS 1,000 ML IV SCH (05:30)
[2016-03-26] MEDS: ACETAMINOPHEN TAB 325 MG TAB PO PRN (07:49)
[2016-03-26 07:58] VITALS: BP 121/72; PULSE 100; RESP 16; TEMP 97.7
--- NOTE | 2016-03-26 09:06 | P.DS ---
Providers Date of admission: 03/24/16 09:36 Expected date of discharge: 03/26/16 Attending physician: Schuyler Vang Consults: 03/24/16 13:17 Consult Physician Routine Consulting Provider: Zuhair Lee Reason/Comments: medical management Do you want consulting provider notified?: Yes 03/24/16 13:31 Consult Physician Routine Consulting Provider: Samson Sanfodr Consult Reason/Comments: anticoagulation. Pt known to cardiology Do you want consulting provider notified?: Yes Primary care physician: Zuhair Lee - Discharge Diagnosis(es) (1) Primary osteoarthritis of right knee Current Visit: Yes Status: Acute (2) Status post right knee replacement Current Visit: Yes Status: Acute Hospital Course: This is a 55-year-old male who was last seen with complaint of continued right knee pain. The patient has a known history of degenerative arthritis of the right knee and presents to discuss surgical options. After discussion and consideration the patient elects to proceed with total right knee arthroplasty. The patient is seen preoperatively by Dr. Lee and cleared for surgery. The patient has history of chronic pain. His pain medications are managed by Dr. Sullivan. The patient is admitted to [facility] for total right knee arthroplasty. The procedures performed without complication or sequelae. Patient is doing fairly well postoperatively. He was having some pain management issues. He was placed on IV Dilaudid via [employer] as an inpatient. He had increased swelling to the knee and lower leg and was placed in a compressive Chucho bandage which did improve his swelling. Vital signs are stable at discharge. Labs are stable at discharge. the patient is ambulating well with walker with minimal assistance. The patient is discharged to home on postop day #2 pending medical clearance. He will continue his home pain medications as prescribed by Dr. Sullivan. He will resume his Eliquis per medical management. Please see orders and refer to the med rec for accurate list of medications. Patient Condition at Discharge: Good Plan - Discharge Summary New Discharge Prescriptions: Ketorolac [Toradol] 10 mg PO Q6HR #20 tab Discharge Medication List Dexlansoprazole [Dexilant] 60 mg PO QAM 06/12/15 [History] Lisinopril [Zestril] 10 mg PO QAM 06/12/15 [History] Tadalafil [Cialis] 2.5 mg PO QAM 06/12/15 [History] Tamsulosin [Flomax] 0.4 mg PO QAM 06/12/15 [History] Varenicline [Chantix] 1 mg PO BID 06/12/15 [History] Acetaminophen Tab [Tylenol] 650 mg PO Q4HR PRN #0 tab 01/17/16 [Rx] Propafenone [Rythmol] 150 mg PO TID #90 tab 01/17/16 [Rx] Atenolol [Tenormin] 25 mg PO QAM 01/21/16 [History] Apixaban [Eliquis] 5 mg PO BID #60 tab 01/28/16 [Rx] Atorvastatin [Lipitor] 80 mg PO HS #30 tab 01/28/16 [Rx] Psyllium Husk 100% [Metamucil Packet] 6 gm PO DAILY #30 packet 01/28/16 [Rx] Enoxaparin [Lovenox] 100 mg SQ DIRECTED 03/18/16 [History] Gabapentin 1,600 mg PO Q4-6H PRN 03/18/16 [History] Nortriptyline [Pamelor] 100 mg PO HS 03/18/16 [History] Tapentadol HCl [Nucynta] 50 mg PO QID PRN 03/18/16 [History] Ketorolac [Toradol] 10 mg PO Q6HR #20 tab 03/26/16 [Rx] Follow up Appointment(s)/Referral(s): [facility], [NON-STAFF] - As Needed Zuhair Lee MD [Primary Care Provider] - 1 Week Schuyler Vang DO [Doctor of Osteopathic Medicine] - 2 Weeks Ambulatory/Diagnostic Orders: Continuous Passive Motion (CPM) Machine [DME.AMB1] Location: Determined By Patient Activity/Diet/Wound Care/Special Instructions: Weightbearing as tolerated with a walker CPM daily Daily dressing changes, keep incision clean and dry Anticoagulation as directed by cardiology Resume Home Pain medications as previously directed. Call [facility] with questions or concerns [phone] Discharge Disposition: HOME WITH HOME HEALTH SERVICES
[2016-03-26] MEDS ORDERED: KETOROLAC 30 MG/ML 1 ML VIAL IM SCH ×2 (09:35→12:00)
[2016-03-26] MEDS: ATENOLOL 25 MG TAB PO SCH (09:37)
[2016-03-26] MEDS: LISINOPRIL 10 MG TAB PO SCH (09:37)
[2016-03-26] MEDS: PROPAFENONE 150 MG TAB PO SCH (09:37)
[2016-03-26] MEDS: APIXABAN 5 MG TAB PO SCH (09:37)
[2016-03-26] MEDS: PSYLLIUM HUSK 100% 6 GM PACKET PO SCH (09:38)
[2016-03-26] MEDS: TAMSULOSIN 0.4 MG CAP.ER.24H PO SCH (09:38)
[2016-03-26] MEDS: MELOXICAM 7.5 MG TAB PO SCH (09:38)
[2016-03-26] MEDS: VARENICLINE 1 MG TAB PO SCH (09:39)
[2016-03-26] MEDS ORDERED: TAMSULOSIN 0.4 MG CAP.ER.24H PO STA (10:07)
[2016-03-26 11:59] LABS: Appearance,Urine Clear (Clear); Bilirubin,Urine Negative (Negative); Glucose,Urine (UA) Negative (Negative); Ketones,Urine Negative (Negative); Leukocyte Esterase,Urine Negative (Negative); Nitrite,Urine Negative (Negative); PH, Urine 6.5 (5.0-8.0); Protein,Urine Negative (Negative); Specific Gravity,Urine 1.007 (1.001-1.035); UA Billing (MACRO vs. MICRO) CHEM; Urobilinogen,Urine <2.0 mg/dL (<2.0)
--- NOTE | 2016-03-26 14:33 | P.PN ---
Subjective Patient is a 55-year-old male well known to Dr. Lee with medical history significant for paroxysmal atrial fibrillation, GERD, hypertension, degenerative disc disease, BPH, osteoarthritis of the right knee, lumbar radiculopathy, and chronic pain syndrome. Patient presented to the hospital for elective right total knee arthroplasty. Patient tolerated procedure well. Patient is evaluated on the surgical unit where he is currently sitting up in the chair. Patient reports dysuria and urinary retention requiring catheterization during the night. Denies chills, fevers, nausea, vomiting, shortness of breath, chest pain, or abdominal pain. Denies diarrhea or constipation. Incisional pain controlled. Objective - Vital Signs Vital signs: Vital Signs Temp 97.7 F 03/26/16 07:00 Pulse 100 03/26/16 08:00 Resp 16 03/26/16 08:00 BP 121/72 03/26/16 07:00 Pulse Ox 93 L 03/26/16 07:00 Intake & Output 03/25/16 03/26/16 03/26/16 18:59 06:59 18:59 Intake Total 500 1400 1600 Output Total 600 2130 200 Balance -100 -730 1400 Weight 95.254 kg 95.254 kg Intake: Intake, IV Titration 300 Amount Lactated Ringers 1,000 ml 300 @ 75 mls/hr IV .[id number] [facility] Rx#:[id number] Oral 500 1100 1600 Output: Urine 600 930 200 Post Void Residual 1200 Other: Voiding Method Urinal - Exam GENERAL: Pt awake and alert, well-appearing, well-nourished, and in no acute distress. HEAD: Atraumatic, normocephalic. EYES: Pupils equal and round, and reactive to light, sclera anicteric, conjunctiva are normal. ENT: Moist mucous membranes. NECK:Supple without lymphadenopathy or JVD. LUNGS: Breath sounds diminished. HEART: Heart S1, S2, no S3 or S4. Regular rate and rhythm. No murmurs, rubs or gallops. ABDOMEN: Soft, nontender, nondistended, normoactive bowel sounds. EXTREMITIES: Palpable peripheral pulses. Right knee dressing dry and intact. NEUROLOGICAL: Pt oriented x 3. No focal deficits. Strength and sensation grossly intact. PSYCH: Normal mood, normal affect. SKIN: Warm, dry, intact. Normal turgor. No rashes or lesions. - Labs CBC & Chem 7: 02/15/17 06:44 Assessment and Plan Plan: Impression: 1. Right knee osteoarthritis status post total right knee arthroplasty on 03/24. 2. Anemia, suspect secondary to acute blood loss and hemodilution. 3. Paroxysmal atrial fibrillation. 4. Degenerative disc disease. 5. Lumbar radiculopathy. 6. Chronic pain syndrome. 7. GERD. 8. Hypertension. 9. BPH with episode of urinary retention. 10. History of nicotine dependence. 11. Dyslipidemia. Plan: Continue surgical management by orthopedic service. Continue current medications. Will give patient extra dose of Flomax and obtain UA. If UA is negative, and patient is able to urinate patient may be discharged from a medical standpoint. Patient will follow-up with Dr. Lee in the outpatient setting. The above impression and plan have been discussed and directed by Dr Lee. Fitz CHAMBERLAIN acting as scribe for Dr. Lee.
== END 2016-03-26 13:55 | disposition home health service (06) | DRG 470 ==
LOC: 2ORMAIN 03-24 09:36 → 3SUR 03-24 13:10
PROVIDERS: ADMIT Orthopaedic Surgery; ATTEND Orthopaedic Surgery
PROC: 0SRC0J9 Replacement of Right Knee Joint with Synthetic Substitute, Cemented, Open Approach (ICD-10-PCS; principal; 2016-03-24 11:55)
DX: M17.11 Unilateral primary osteoarthritis, right knee (principal); D62 Acute posthemorrhagic anemia; I10 Essential (primary) hypertension; Z79.899 Other long term (current) drug therapy; E29.1 Testicular hypofunction; E78.5 Hyperlipidemia, unspecified; G89.4 Chronic pain syndrome; I48.0 Paroxysmal atrial fibrillation; K21.9 Gastro-esophageal reflux disease without esophagitis; M54.16 Radiculopathy, lumbar region; M54.42 Lumbago with sciatica, left side; N40.1 Benign prostatic hyperplasia with lower urinary tract symptoms; R33.8 Other retention of urine; Z82.49 Family history of ischemic heart disease and other diseases of the circulatory system; Z86.73 Personal history of transient ischemic attack (TIA), and cerebral infarction without residual deficits; Z87.891 Personal history of nicotine dependence; Z98.1 Arthrodesis status
CPT/HCPCS: 81003; 85025; 88300; 92950; 94640; 94760

== ENCOUNTER → 2016-04-13 | Outpatient (CLI) | payer OTHER ==
--- NOTE | 2016-04-13 11:54 | FL ---
EXAMINATION TYPE: FL barium swallow w video DATE OF EXAM: 04/13/2016 11:42 AM MODIFIED SWALLOW / DEGLUTITION STUDY CLINICAL HISTORY: Dysphagia. Recent TIA. TECHNIQUE: Deglutition study is performed utilizing thin liquid barium, honey and nectar thick liqui d barium, barium thick applesauce, and barium coated cracker. A total of 3 minutes 38 seconds of fluo roscopic time was utilized during procedure. COMPARISON: None. FINDINGS: The oral and pharyngeal phases show satisfactory initiation and propagation with all modali ties tested. Satisfactory mastication is seen with solid modalities tested. There is no evidence of penetration or aspiration with any modality tested. Mild to moderate pharyngeal residue was appreciat ed. There is more severe residual in the proximal esophagus with more viscous or solid modality. Some esophageal dysmotility is evident with poor peristalsis noted. There is a small diverticulum in the proximal esophagus measuring roughly 1/3 vertebral body in length of roughly C6-C7 level, suspect sma ll Zenker's diverticulum. IMPRESSION: No penetration or aspiration is noted. Other findings as noted above. Please refer to speech therapist notes for further details if necessary.
== END | disposition home or self-care (01) ==
LOC: RADFLMAIN 11:14
PROVIDERS: ATTEND Family Medicine
DX: R13.10 Dysphagia, unspecified (principal)
CPT/HCPCS: 74230

== ENCOUNTER → 2016-05-26 | Outpatient (CLI) | payer OTHER ==
[2016-05-26 17:11] LABS: CH 29.8; CHCM 33.3; HCT 37.2 % (39.0-53.0); HGB 12.3 gm/dL (13.0-17.5); MCH 29.8 pg (25.0-35.0); MCHC 33.1 g/dL (31.0-37.0); MCV 89.9 fL (80.0-100.0); Mean Platelet Volume 7.7; RBC 4.14 m/uL (4.30-5.90); RDW 13.7 % (11.5-15.5); WBC 5.8 k/uL (3.8-10.6)
== END | disposition home or self-care (01) ==
LOC: LABWHC1 16:50
PROVIDERS: ATTEND Family Medicine
DX: K22.4 Dyskinesia of esophagus (principal); G47.09 Other insomnia; I69.391 Dysphagia following cerebral infarction; Z71.2 Person consulting for explanation of examination or test findings
CPT/HCPCS: 36415; 85027

== ENCOUNTER → 2016-08-04 | Outpatient (CLI) | payer OTHER | LOC: CPPFTMAIN 13:20 | PROVIDERS: ATTEND Family Medicine | DX: J43.9 Emphysema, unspecified (principal) | CPT/HCPCS: 94060; 94726; 94729 ==

== ENCOUNTER → 2016-09-03 | Outpatient (CLI) | payer OTHER ==
--- NOTE | 2016-09-03 15:45 | CT ---
EXAMINATION TYPE: CT abdomen pelvis w con DATE OF EXAM: 09/03/2016 COMPARISON: 07/29/1715 HISTORY: Patient complains of LLQ pain. CT DLP: 1192.1 mGycm CONTRAST: CT scan of the abdomen and pelvis is performed with Oral Contrast and with IV Contrast, patient injec nancy with 100 mL of Omnipaque 300. FINDINGS: LUNG BASES-: No visible nodule. No infiltrate. LIVER/GB: Mild fatty hepatic infiltration. Cholecystectomy changes noted. Granuloma within the liver . No space occupying hepatic lesion. Biliary tree is of normal caliber. PANCREAS: No inflammation. No distinct mass. SPLEEN: No splenic enlargement. No lesion seen. ADRENALS: No nodule. No thickening. KIDNEYS/BLADDER: No hydronephrosis. No nephrolithiasis. No disctinct renal mass. Urinary bladder g rossly unremarkable. BOWEL: Normal appendix. Normal bowel caliber. No inflammation. Sigmoid diverticulosis without diver ticulitis. GENITAL ORGANS: No gross abnormality. LYMPH NODES: No greater than 1cm abdominal or pelvic lymph nodes are appreciated. AORTA: No significant abnormality. OSSEOUS STRUCTURES: No significant abnormality is seen. OTHER: No significant additional abnormality is seen. IMPRESSION: 1. Sigmoid diverticulosis without diverticulitis.
== END | disposition home or self-care (01) ==
LOC: RADCTMAIN 14:53
PROVIDERS: ATTEND Family Medicine
DX: K57.30 Diverticulosis of large intestine without perforation or abscess without bleeding (principal); Z87.19 Personal history of other diseases of the digestive system
CPT/HCPCS: 74177; Q9967

== ENCOUNTER → 2017-03-10 | Outpatient (CLI) | payer OTHER ==
[2017-03-10 18:01] LABS: HGB 14.2 gm/dL (13.0-17.5); MCH 30.8 pg (25.0-35.0); MCHC 33.9 g/dL (31.0-37.0); MCV 90.8 fL (80.0-100.0); Mean Platelet Volume 6.9; Platelet Count 261 k/uL (150-450); RBC 4.63 m/uL (4.30-5.90); RDW 13.2 % (11.5-15.5); WBC 7.4 k/uL (3.8-10.6)
[2017-03-10 18:16] LABS: Anion Gap 10 mmol/L; Blood Urea Nitrogen 13 mg/dL (9-20); Calcium 9.6 mg/dL (8.4-10.2); Carbon Dioxide 30 mmol/L (22-30); Chloride 100 mmol/L (98-107); Glucose 80 mg/dL (74-99); Potassium 4.6 mmol/L (3.5-5.1); Sodium 140 mmol/L (137-145)
== END | disposition home or self-care (01) ==
LOC: LABWHC1 16:45
PROVIDERS: ATTEND Internal Medicine Clinical Cardiac Electrophysiology
DX: I48.0 Paroxysmal atrial fibrillation (principal)
CPT/HCPCS: 36415; 80048; 85027

== ENCOUNTER 2017-03-18 07:30 | Day surgery (SDC) | payer OTHER ==
[2017-03-10 16:13] VITALS: BMI 28.5
[2017-03-18] MEDS ORDERED: IV FLUID CONTINUATION 950 ML IV ONE (08:39)
[2017-03-18] MEDS ORDERED: ISOPROTERENOL 250 MCG/1.25 ML SYR IV ONE (08:39)
[2017-03-18] MEDS ORDERED: fentaNYL (PF) 50 MCG/ML 2 ML AMP ONE (08:39)
[2017-03-18] MEDS ORDERED: ePHEDrine SULFATE/0.9% NACL/PF 50 MG/5 ML SYRINGE IV ONE (08:39)
[2017-03-18] MEDS ORDERED: MIDAZOLAM 2 MG/2 ML VIAL ONE ×2 (08:39)
[2017-03-18] MEDS ORDERED: LIDOCAINE 1% INJ 10MG/ML (20 ML MDV) ONE (08:39)
[2017-03-18] MEDS ORDERED: PROTAMINE SULFATE 10 MG/ML 5 ML VIAL IV ONE (08:39)
[2017-03-18] MEDS ORDERED: HEPARIN SODIUM,PORCINE 5,000 UNIT/ML 1 ML VIAL ONE (08:39)
[2017-03-18] MEDS ORDERED: SUCCINYLCHOLINE CHLORIDE 100 MG/5 ML SYR IV ONE (08:39)
[2017-03-18] MEDS ORDERED: PHENYLEPHRINE-0.9% NACL SYG 1 MG/10 ML SYRINGE ONE (08:39)
[2017-03-18] MEDS ORDERED: PROPOFOL 10 MG/ML 20 ML VIAL IV ONE (08:39)
[2017-03-18] MEDS ORDERED: MIDAZOLAM 2 MG/2 ML VIAL IV ONE (08:41)
[2017-03-18] MEDS ORDERED: LIDOCAINE 2% INJ 20 MG/ML SQ ONE (09:27)
[2017-03-18] MEDS ORDERED: HEPARIN SOD,PORK IN 0.45% NACL 25,000 UNIT in 0.45% NACL 1 500ML.BAG IV ONE (09:36)
[2017-03-18] MEDS ORDERED: IOHEXOL 350 MG/ML 125ML BOTTLE INJ ONE (11:44)
[2017-03-18] MEDS ORDERED: ACETAMINOPHEN TAB 325 MG TAB PO PRN (11:47)
[2017-03-18] MEDS ORDERED: ALBUTEROL NEBULIZED 2.5 MG/3 ML INHALATION PRN (11:49)
[2017-03-18] MEDS ORDERED: ACETAMINOPHEN IV (For NPO) 1,000 MG in EMPTY BAG 1 BAG IVPB ONE (12:00)
--- NOTE | 2017-03-18 13:41 | P.PCN ---
Preoperative Diagnosis: Indication for the procedure Symptomatic drug refractory atrial fibrillation, paroxysmal Procedures performed (PVI - CRYO Ablation) Invasive hemodynamic monitoring while general anesthesia, right femoral arterial line for monitoring and sampling Comprehensive diagnostic EP study with attempted arrhythmia induction CS pacing and recording Drug infusion Catheter the mapping of the tachycardia (NOT 3D mapping) Intracardiac echocardiography Pulmonary vein isolation with transseptal and comprehensive EPS, [id number] Procedure details Patient was brought to the EP lab in a fasting state. Written informed consent was obtained prior to the procedure. Procedure performed under general anesthesia After initial muscle relaxant use, muscle relaxants were not given thereafter in order to assess phrenic nerve during procedure Patient prepped and draped as per protocol Full cryo-set up with standard preparation of the cryoablation tools done Femoral Venous access obtained on the right and left groins Sheaths placed Diagnostic catheters for the high right atrium, phrenic nerve stimulation and pacing, His bundle, RV and coronary sinus placed Intracardiac echo catheter placed Long sheath placed in the right atrium Left and right transseptal catheterization performed under intracardiac echo guidance Intravenous heparin with aCT above 300 Later, catheter positioning and balloon positioning under intracardiac echo Baseline measurements Sinus cycle length 867 ms, TN interval 151 ms, QRS 101 ms, QT interval 480 ms AH interval 76 ms HV interval 35 ms Comprehensive diagnostic EP study with drug infusion Atrial pacing performed from the high right atrium and the coronary sinus Sinus recovery times at 600 504 100 ms were 941, 1031 and 1916 ms. Corresponding carotid sinus node recovery times within normal limits., On Isuprel, AV node Wenckebach block 320 ms, VA Wenckebach block 510 ms. AV node Wenckebach block from the coronary sinus 330 ms Transseptal catheterization performed RA pressure 15/8/11 LA pressure 20/7/13 Transseptal catheterization performed with standard sheath. The cryoablation sheath was then placed with an over the wire exchange without any acute complications. All 4 pulmonary veins were isolated in the following sequence: Left superior followed by left inferior followed by right superior followed by right inferior The cryo-ablation balloon was placed at the os of each vein 1.5 mL of IV dye was injected to confirm an occluded vein Goal during cryoablation was to achieve -30C in the first 30 seconds. If not the balloon was repositioned to obtain this result After completion of Cryoblation with durations from 180-240 seconds, entrance block was confirmed with the Attain circular catheter in a roving fashion around the antrum of the pulmonary veins Phrenic nerve pacing was performed from the SVC, right innominate vein area and diaphragm voltage was monitored as well as manually Parameter goals for each cryo freeze -30C by 30 seconds -40C by 60 seconds Mediated between minus 40-55 Thaw time greater than 10 seconds Balloon visualized by intracardiac echo to ensure that the proximal one third was within the left atrium/antrum Esophageal intubation and deflection The esophagus was intubated with an endoscope and deflected right words when ablating the left superior and left inferior pulmonary veins because of a significant drop in truck lumenal temperatures below 27.5C Left superior pulmonary vein Successful cryoablation, total 5 minutes, entrance and exit block Left inferior pulmonary vein Successful cryoablation, 180 seconds followed by 150 seconds with entrance and exit block Right superior pulmonary vein, during phrenic nerve pacing successful cryoablation with a 50 seconds followed by 182nd cryoablation with entrance and exit block Right inferior pulmonary vein, during phrenic nerve pacing Successful cryoablation with a single 4 minute delivery with entrance and exit block At the end of the procedure the Achieve catheter was once again used to check for entrance block Phrenic nerve stimulation was performed to confirm diaphragmatic stimulation the end of the procedure Cine fluoroscopy was performed at the very end of the procedure to confirm movement of both diaphragms with inspiration and expiration At the end of the procedure the patient was extubated Heparin was reversed Venous sheaths were removed and hemostasis assured Result Successful pulmonary vein isolation using cryo-ablation Complete entrance block and exit block in all 4 veins confirmed No evidence for phrenic nerve injury Left-sided esophagus that had to be displaced away while ablating the left- sided pulmonary veins Anesthesia: GETA Disposition: observation
[2017-03-18] MEDS: SODIUM CHLORIDE 0.9% 1,000 ML IV SCH (14:40)
[2017-03-18] MEDS: LACTATED RINGERS 1,000 ML IV SCH (14:40)
[2017-03-18] MEDS: PROPAFENONE 150 MG TAB PO SCH ×2 (16:00→22:05)
[2017-03-18] MEDS: HYDROcodone/APAP 5-325MG 1 EACH TAB PO PRN ×2 (16:00→20:00)
[2017-03-18] MEDS: METOPROLOL TARTRATE 50 MG TAB PO SCH (20:10)
[2017-03-18] MEDS: APIXABAN 5 MG TAB PO SCH (20:10)
[2017-03-18] MEDS ORDERED: ATORVASTATIN 80 MG TAB PO SCH (21:00)
[2017-03-18] MEDS ORDERED: GABAPENTIN 400 MG CAP PO SCH (21:00)
[2017-03-18] MEDS ORDERED: TAMSULOSIN 0.4 MG CAP.ER.24H PO SCH (21:00)
[2017-03-18] MEDS ORDERED: NORTRIPTYLINE 25 MG CAP PO SCH (21:00)
[2017-03-19] MEDS: HYDROcodone/APAP 5-325MG 1 EACH TAB PO PRN ×3 (02:30→12:00)
[2017-03-19] MEDS: LACTATED RINGERS 1,000 ML IV SCH (03:24)
[2017-03-19] MEDS: SODIUM CHLORIDE 0.9% 1,000 ML IV SCH (03:24)
[2017-03-19] MEDS ORDERED: PANTOPRAZOLE 40 MG TABLET PO SCH (07:30)
[2017-03-19 07:59] VITALS: RESP 16
[2017-03-19] MEDS ORDERED: IPRATROPIUM 0.5 MG/2.5 ML NEBU INHALATION SCH (08:00)
--- NOTE | 2017-03-19 08:29 | P.DS ---
Providers Attending physician: Heladio Vasquez Primary care physician: [facility] Course: Patient is doing well. He denies any chest discomfort this morning no dizziness lightheadedness no palpitations. He has been ambulating in the hallways as well as gone to the bathroom. He has not had many groin issues No shortness of breath no orthopnea PND On examination he is afebrile 97.6F pulse rate in the 70s respirations normal blood pressure 135/86. His mercury Heart sounds are normal normal S1 normal S2 no murmurs no gallop no rub Breath sounds are clear no rhonchi no crackles Abdomen is soft 70s want is no edema is going to feel well there is minimal bruising no hematoma on either side Impression Paroxysmal atrial fibrillation drug refractory, recurrent History of TIA Dyslipidemia Plan Follow-up with Dr. Lucero in 1-2 weeks, lifelong anticoagulation continue cardiac medications Patient Condition at Discharge: Stable Plan - Discharge Summary Discharge Rx Participant: Yes New Discharge Prescriptions: Continue Dexlansoprazole [Dexilant] 60 mg PO QAM Tamsulosin [Flomax] 0.4 mg PO HS Apixaban [Eliquis] 5 mg PO BID #60 tab Nortriptyline [Pamelor] 100 mg PO HS Gabapentin 1,600 mg PO HS Umeclidinium [place] [Incruse Ellipta] 1 puff INHALATION RT-DAILY Albuterol Inhaler [Ventolin Hfa Inhaler] 2 puff INHALATION RT-Q4H PRN PRN Reason: Shortness Of Breath Fluticasone/Vilanterol [Breo Ellipta 100-25 Mcg Inhaler] 1 puff INHALATION RT -DAILY Metoprolol Tartrate [Lopressor] 50 mg PO BID #60 tab Atorvastatin [Lipitor] 80 mg PO HS Propafenone HCl 150 mg PO TID Sucralfate [Carafate] 1 gm PO BID Ondansetron HCl [Zofran] 8 mg PO TID Discharge Medication List Dexlansoprazole [Dexilant] 60 mg PO QAM 06/12/15 [History] Tamsulosin [Flomax] 0.4 mg PO HS 06/12/15 [History] Apixaban [Eliquis] 5 mg PO BID #60 tab 01/28/16 [Rx] Gabapentin 1,600 mg PO HS 03/18/16 [History] Nortriptyline [Pamelor] 100 mg PO HS 03/18/16 [History] Albuterol Inhaler [Ventolin Hfa Inhaler] 2 puff INHALATION RT-Q4H PRN 01/30/17 [ History] Fluticasone/Vilanterol [Breo Ellipta 100-25 Mcg Inhaler] 1 puff INHALATION RT- DAILY 01/30/17 [History] Umeclidinium [place] [Incruse Ellipta] 1 puff INHALATION RT-DAILY 01/30/17 [ History] Metoprolol Tartrate [Lopressor] 50 mg PO BID #60 tab 02/01/17 [Rx] Atorvastatin [Lipitor] 80 mg PO HS 03/10/17 [History] Ondansetron HCl [Zofran] 8 mg PO TID 03/10/17 [History] Propafenone HCl 150 mg PO TID 03/10/17 [History] Sucralfate [Carafate] 1 gm PO BID 03/10/17 [History] Follow up Appointment(s)/Referral(s): Ml Warren DO [Primary Care Provider] - 3 Weeks Samson Sanford MD [STAFF PHYSICIAN] - 1 Week Activity/Diet/Wound Care/Special Instructions: Post EP study - Ablation instructions 1. Keep access sites dry for 2 days. 2. No heavy lifting or straining for 2 days. 3. Avoid bending the hips repeatedly for 2 days. 4. You may go up and down stairs slowly Call if the following is noted 1. Bleeding, increasing swelling or pain at the access sites. 2. Increasing chest discomfort, especially upon taking a deep breath. 3. Increasing shortness of breath, at rest or with exertion. 4. Undue cough / phlegm 5. Difficulty or pain while swallowing. 6. Pain or change in color in the extremities. 7. Fever, chills, rigors. 8. Increasing headache or neurologic symptoms. 9. Dizziness, fainting, palpitations Continue anticoagulation Discharge Disposition: HOME SELF-CARE
[2017-03-19] MEDS: PROPAFENONE 150 MG TAB PO SCH (08:56)
[2017-03-19] MEDS: APIXABAN 5 MG TAB PO SCH (08:56)
[2017-03-19] MEDS: METOPROLOL TARTRATE 50 MG TAB PO SCH (10:05)
[2017-03-19 15:33] VITALS: BP 125/76; PULSE 64; TEMP 97.4
== END 2017-03-19 16:59 | disposition home or self-care (01) ==
LOC: CATHEP 07:30 → 3OBS 11:34 → CATHEP 03-19 16:59
PROVIDERS: ATTEND Internal Medicine Clinical Cardiac Electrophysiology
DX: I48.0 Paroxysmal atrial fibrillation (principal); I10 Essential (primary) hypertension; E78.5 Hyperlipidemia, unspecified; K21.9 Gastro-esophageal reflux disease without esophagitis; Z86.73 Personal history of transient ischemic attack (TIA), and cerebral infarction without residual deficits; Z86.718 Personal history of other venous thrombosis and embolism; Z82.49 Family history of ischemic heart disease and other diseases of the circulatory system; Z79.01 Long term (current) use of anticoagulants; Z79.51 Long term (current) use of inhaled steroids; Z79.899 Other long term (current) drug therapy; Z87.891 Personal history of nicotine dependence
CPT/HCPCS: 94640; 85347; 93623; 93662; 93609; 93656; C1769 ×6; C1894 ×3; C1730 ×3; C1759; C1893; C1733; C1766; J2001 ×2; J2250; J2720; J1644 ×2; J3010; J2370; J0330; J2704; Q9967

== ENCOUNTER → 2017-04-27 | Outpatient (CLI) | payer OTHER ==
[2017-04-27 09:53] LABS: HGB 14.9 gm/dL (13.0-17.5); MCH 29.8 pg (25.0-35.0); MCHC 33.9 g/dL (31.0-37.0); Mean Platelet Volume 7.4; Platelet Count 191 k/uL (150-450); RBC 5.01 m/uL (4.30-5.90); RDW 12.9 % (11.5-15.5); WBC 6.9 k/uL (3.8-10.6)
[2017-04-27 10:10] LABS: Anion Gap 11 mmol/L; Blood Urea Nitrogen 16 mg/dL (9-20); Calcium 9.9 mg/dL (8.4-10.2); Carbon Dioxide 29 mmol/L (22-30); Chloride 100 mmol/L (98-107); Glucose 97 mg/dL (74-99); Potassium 4.8 mmol/L (3.5-5.1); Sodium 140 mmol/L (137-145)
== END | disposition home or self-care (01) ==
LOC: LABWHC1 09:14
PROVIDERS: ATTEND Internal Medicine Clinical Cardiac Electrophysiology
DX: I48.3 Typical atrial flutter (principal); I48.0 Paroxysmal atrial fibrillation
CPT/HCPCS: 36415; 80048; 85027

== ENCOUNTER 2017-05-07 10:39 | Inpatient (IN) | payer OTHER ==
[2017-05-07 10:52] LABS: Glucose,Whole Blood 105 mg/dL (75-99)
[2017-05-07] MEDS ORDERED: RX INFO: IV CONTRAST WAS GIVEN 1 EACH MISC MISCELLANE PRN (10:58)
--- NOTE | 2017-05-07 11:06 | ED ---
Neuro HPI - General Chief Complaint: Neuro Symptoms/Deficit Stated Complaint: POSS CVA Time Seen by Provider: 05/07/17 10:47 Source: patient, RN/MD, RN notes reviewed Mode of arrival: wheelchair Limitations: no limitations - History of Present Illness Is the patient presenting with stroke symptoms?: Yes Initial Comments: This is a 48-year-old male with a history of A. fib TIA anxiety who had the onset around 8:30 this morning at work of speech difficulty. He also has some sharp left-sided chest pain some shortness of breath along with it. He states the pain is get worse with movements and certain positional changes. His speech is not getting any better. He was seen in his doctor's office and sent here for further evaluation. No headaches no trauma fevers chills sweats no focal weakness to the upper or lower extremities. No blurry vision. He has had a cardiac ablation in the past. He also states he had a 15 pound weight gain in the last year. His last TIA was in January 2016 Location: speech - Related Data Home Medications: Home Medications Medication Instructions Recorded Confirmed Dexlansoprazole [Dexilant] 60 mg PO QAM 06/12/15 05/07/17 Tamsulosin [Flomax] 0.4 mg PO HS 06/12/15 05/07/17 Gabapentin 1,600 mg PO BID 03/18/16 05/07/17 Albuterol Inhaler [Ventolin Hfa 2 puff INHALATION RT-Q4H PRN 01/30/17 05/07/17 Inhaler] Fluticasone/Vilanterol [Breo 1 puff INHALATION RT-DAILY 01/30/17 05/07/17 Ellipta 100-25 Mcg Inhaler] Umeclidinium [place] [Incruse 1 puff INHALATION RT-DAILY 01/30/17 05/07/17 Ellipta] Atorvastatin [Lipitor] 80 mg PO HS 05/07/17 05/07/17 Lisinopril [Zestril] 10 mg PO DAILY 05/07/17 05/07/17 Nortriptyline [Pamelor] 100 mg PO HS 05/07/17 05/07/17 Propafenone [Rythmol] 150 mg PO TID 05/07/17 05/07/17 Spironolactone 50 mg PO DAILY 05/07/17 05/07/17 Sucralfate [Carafate] 1 gm PO BID 05/07/17 05/07/17 Tadalafil [Cialis] 5 mg PO DAILY PRN 05/07/17 05/07/17 Previous Rx's Medication Instructions Recorded Apixaban [Eliquis] 5 mg PO BID #60 tab 01/28/16 Metoprolol Tartrate [Lopressor] 50 mg PO BID #60 tab 02/01/17 Allergies/Adverse Reactions: Allergies Allergy/AdvReac Type Severity Reaction Status Date / Time No Known Allergies Allergy Verified 05/07/17 12:07 Review of Systems ROS Statement: Those systems with pertinent positive or pertinent negative responses have been documented in the HPI. ROS Other: All systems not noted in ROS Statement are negative. General Exam - General Exam Comments Initial Comments: This is a well-developed well-nourished awake alert oriented times 3 male Limitations: no limitations General appearance: alert, anxious Head exam: Present: atraumatic, normocephalic, normal inspection Eye exam: Present: normal appearance, PERRL, EOMI. Absent: scleral icterus, conjunctival injection, periorbital swelling ENT exam: Present: normal exam, mucous membranes moist Neck exam: Present: normal inspection, full ROM, other (no stridor JVD or bruits ). Absent: tenderness, meningismus, lymphadenopathy Respiratory exam: Present: normal lung sounds bilaterally. Absent: respiratory distress, wheezes, rales, rhonchi, stridor Cardiovascular Exam: Present: regular rate, normal rhythm, normal heart sounds. Absent: systolic murmur, diastolic murmur, rubs, gallop, clicks GI/Abdominal exam: Present: soft, normal bowel sounds. Absent: distended, tenderness, guarding, rebound, rigid, bruit, pulsatile mass, hernia Extremities exam: Present: normal inspection, full ROM, normal capillary refill. Absent: tenderness, pedal edema, joint swelling, calf tenderness Back exam: Present: normal inspection Neurological exam: Present: alert, oriented X3, other (Evidence of slow scanning speech) Psychiatric exam: Present: normal affect, anxious Skin exam: Present: warm, dry, intact, normal color. Absent: rash Stroke MDM - Lab Data Result diagrams: 05/07/17 10:45 05/07/17 10:45 Lab Results 03/05/07/17 05/07/17 Range/Units 10:45 10:45 10:45 WBC 8.9 (3.8-10.6) k/uL RBC 4.87 (4.30-5.90) m/uL Hgb 15.2 (13.0-17.5) gm/dL Hct 41.8 (39.0-53.0) % MCV 85.9 (80.0-100.0) fL MCH 31.2 (25.0-35.0) pg MCHC 36.3 (31.0-37.0) g/dL RDW 13.0 (11.5-15.5) % Plt Count 212 (150-450) k/uL Neutrophils % 68 % Lymphocytes % 22 % Monocytes % 5 % Eosinophils % 3 % Basophils % 0 % Neutrophils # 6.0 (1.3-7.7) k/uL Lymphocytes # 2.0 (1.0-4.8) k/uL Monocytes # 0.4 (0-1.0) k/uL Eosinophils # 0.3 (0-0.7) k/uL Basophils # 0.0 (0-0.2) k/uL PT (9.0-12.0) sec INR (<1.2) APTT (22.0-30.0) sec Sodium 141 (137-145) mmol/L Potassium 4.4 (3.5-5.1) mmol/L Chloride 102 (98-107) mmol/L Carbon Dioxide 28 (22-30) mmol/L Anion Gap 11 mmol/L BUN 16 (9-20) mg/dL Creatinine 1.00 (0.66-1.25) mg/dL Est GFR (CKD-EPI)AfAm >90 (>60 ml/min/1.73 sqM) Est GFR (CKD-EPI)NonAf 83 (>60 ml/min/1.73 sqM) Glucose 95 (74-99) mg/dL POC Glucose (mg/dL) (75-99) mg/dL POC Glu Oven Press Tender ID Calcium 9.5 (8.4-10.2) mg/dL Total Bilirubin 0.8 (0.2-1.3) mg/dL AST 26 (17-59) U/L ALT 36 (21-72) U/L Alkaline Phosphatase 95 (38-126) U/L Total Creatine Kinase 66 (55-170) U/L CK-MB (CK-2) 0.4 (0.0-2.4) ng/mL CK-MB (CK-2) Rel Index 0.6 Troponin I <0.012 (0.000-0.034) ng/mL Total Protein 6.7 (6.3-8.2) g/dL Albumin 4.2 (3.5-5.0) g/dL 05/07/17 05/07/17 Range/Units 10:45 10:50 WBC (3.8-10.6) k/uL RBC (4.30-5.90) m/uL Hgb (13.0-17.5) gm/dL Hct (39.0-53.0) % MCV (80.0-100.0) fL MCH (25.0-35.0) pg MCHC (31.0-37.0) g/dL RDW (11.5-15.5) % Plt Count (150-450) k/uL Neutrophils % % Lymphocytes % % Monocytes % % Eosinophils % % Basophils % % Neutrophils # (1.3-7.7) k/uL Lymphocytes # (1.0-4.8) k/uL Monocytes # (0-1.0) k/uL Eosinophils # (0-0.7) k/uL Basophils # (0-0.2) k/uL PT 9.8 (9.0-12.0) sec INR 1.0 (<1.2) APTT 23.7 (22.0-30.0) sec Sodium (137-145) mmol/L Potassium (3.5-5.1) mmol/L Chloride (98-107) mmol/L Carbon Dioxide (22-30) mmol/L Anion Gap mmol/L BUN (9-20) mg/dL Creatinine (0.66-1.25) mg/dL Est GFR (CKD-EPI)AfAm (>60 ml/min/1.73 sqM) Est GFR (CKD-EPI)NonAf (>60 ml/min/1.73 sqM) Glucose (74-99) mg/dL POC Glucose (mg/dL) 105 H (75-99) mg/dL POC Glu Oven Press Tender ID McDaid, Marie Calcium (8.4-10.2) mg/dL Total Bilirubin (0.2-1.3) mg/dL AST (17-59) U/L ALT (21-72) U/L Alkaline Phosphatase (38-126) U/L Total Creatine Kinase (55-170) U/L CK-MB (CK-2) (0.0-2.4) ng/mL CK-MB (CK-2) Rel Index Troponin I (0.000-0.034) ng/mL Total Protein (6.3-8.2) g/dL Albumin (3.5-5.0) g/dL - NIH Stroke Scale 1a. Level of Consciousness: (0) alert 1b. LOC Questions: (0) answers correctly 1c. LOC Commands: (0) performs tasks correctly 2. Best Gaze: (0) normal 3. Visual: (0) no visual loss 4. Facial Palsy: (0) normal symmetrical movement 5a. Motor Arm Left: (0) no drift 5b. Motor Arm Right: (0) no drift 6a. Motor Leg Left: (0) no drift 6b. Motor Leg Right: (0) no drift 7. Limb Ataxia: (2) present 2 limbs 8. Sensory: (0) normal 9. Best Language: (0) no aphasia 10. Dysarthria: (1) mild/moderate dysarthria 11. Extinction/Inattention: (0) no abnormality - Medical Decision Making The patient was initially managed stroke scale of 3 he improved to 1 he was evaluated by the neuro interventional S he will not be a candidate for TPA or intervention at this time. He will be admitted for evaluation I did discuss the case with Dr. Jerez neurology and cardiology both will be consulted. - EKG Data -: EKG Interpreted by Nd EKG shows normal: sinus rhythm (Sinus rhythm rate 75. Interval 190 QRS 88 daily since QTC 394/439 exodeviation artifact is present no acute ST-T wave changes) Past Medical History Past Medical History: Atrial Fibrillation, COPD, CVA/TIA, GERD/Reflux, Hypertension, Osteoarthritis (OA), Prostate Disorder Additional Past Medical History / Comment(s): See Dr Vasquez's H&P,stroke-, varicose veins, ENLARGED PROSTATE, testicular hypofunction History of Any Multi-Drug Resistant Organisms: None Reported Past Surgical History: Back Surgery, Cholecystectomy, Joint Replacement, Tonsillectomy Additional Past Surgical History / Comment(s): heart valve sx(OPEN HEART) at age 3, neck fusion ,uvula removed,rt knee replaced Past Anesthesia/Blood Transfusion Reactions: No Reported Reaction Past Psychological History: No Psychological Hx Reported Smoking Status: Unknown if ever smoked Past Alcohol Use History: Occasional Past Drug Use History: None Reported - Past Family History Mother Family Medical History: No Reported History Father Family Medical History: Myocardial Infarction (HI) Course Vital Signs 05/07/17 05/07/17 05/07/17 10:50 11:05 11:20 Temperature 97.8 F Pulse Rate 75 78 74 Respiratory 22 22 22 Rate Blood Pressure 157/82 124/95 141/93 O2 Sat by Pulse 95 96 96 Oximetry 05/07/17 12:20 Temperature Pulse Rate 68 Respiratory 18 Rate Blood Pressure 115/88 O2 Sat by Pulse 98 Oximetry - Reevaluation(s) Reevaluation #1: 05/07/17 13:05 Reevaluation shows that the patient has improvement in his speech. Reevaluation #2: 05/07/17 13:05 The patient was evaluated by neurology remotely he is not a candidate for TPA or intervention at this time he'll be admitted for local [facility] care. Critical Care Time Critical Care Time: Yes Critical Care Time: 39 minutes of critical care time which was initial presentation with history physical labs x-rays reevaluation patient several occasions. A code stroke was initiated. This includes review of old charting that was available initial discussion with the patient's physician documentation above and initial orders. Disposition Clinical Impression: Transient ischemic attack (TIA), Chest pain Disposition: ADMITTED IP TO THIS [facility] Condition: Stable Referrals: Ml Warren DO [Primary Care Provider] - 1-2 days
[2017-05-07 11:07] LABS: Basophils % (A) 0 %; Eosinophils # (A) 0.3 k/uL (0-0.7); Eosinophils % (A) 3 %; HCT 41.8 % (39.0-53.0); HGB 15.2 gm/dL (13.0-17.5); Lymphocytes % (A) 22 %; MCH 31.2 pg (25.0-35.0); MCHC 36.3 g/dL (31.0-37.0); MCV 85.9 fL (80.0-100.0); Mean Platelet Volume 7.2; Monocytes # (A) 0.4 k/uL (0-1.0); Monocytes % (A) 5 %; Neutrophils % (A) 68 %; Platelet Count 212 k/uL (150-450); RBC 4.87 m/uL (4.30-5.90); WBC 8.9 k/uL (3.8-10.6)
[2017-05-07 11:20] LABS: ALT 36 U/L (21-72); AST 26 U/L (17-59); Albumin 4.2 g/dL (3.5-5.0); Alkaline Phosphatase 95 U/L (38-126); Anion Gap 11 mmol/L; Blood Urea Nitrogen 16 mg/dL (9-20); Calcium 9.5 mg/dL (8.4-10.2); Carbon Dioxide 28 mmol/L (22-30); Chloride 102 mmol/L (98-107); Glucose 95 mg/dL (74-99); Potassium 4.4 mmol/L (3.5-5.1); Sodium 141 mmol/L (137-145); Total Bilirubin 0.8 mg/dL (0.2-1.3); Total Protein 6.7 g/dL (6.3-8.2)
--- NOTE | 2017-05-07 11:28 | CT ---
EXAMINATION TYPE: CT brain wo con for TPA DATE OF EXAM: 05/07/2017 HISTORY: Possible CVA; CODE STROKE neurodeficits. CT DLP: 1266 mGycm. Automated Exposure Control for Dose Reduction was Utilized. TECHNIQUE: CT scan of the head is performed without contrast. COMPARISON: CT brain January 24, 2017 FINDINGS: There is no acute intracranial hemorrhage or midline shift identified. There is diffuse v entricular and sulcal prominence consistent with diffuse age-related cerebral atrophy. Some degradati on from motion artifact is present. [place]-white matter differentiation is fairly well preserved. The globes are intact and the visualized sinuses are clear. The calvarium is intact. IMPRESSION: No acute intracranial hemorrhage or midline shift. There is mild diffuse age-related ce rebral atrophy redemonstrated. There is no significant change from recent CT.
[2017-05-07 11:33] LABS: Partial Thromboplastin Time 23.7 sec (22.0-30.0); Prothrombin Time 9.8 sec (9.0-12.0)
[2017-05-07 11:52] LABS: Creatine Kinase 66 U/L (55-170)
[2017-05-07 12:04] LABS: Creatine Kinase MB 0.4 ng/mL (0.0-2.4); Troponin I <0.012 ng/mL (0.000-0.034)
--- NOTE | 2017-05-07 12:07 | CT ---
EXAMINATION TYPE: CT angio head neck DATE OF EXAM: 05/07/2017 HISTORY: Neurodeficits. Code stroke. COMPARISON: CTA head and neck January 26, 2016. Carotid ultrasound January 25, 2017 CT DLP: 565 mGycm. Automated Exposure Control for Dose Reduction was Utilized. TECHNIQUE: CTA scan of the head and neck are performed with IV Contrast, patient injected with 100 m L of Isovue 370, axial images are obtained, coronal and sagittal reformatted images are reviewed. Thr ee-D reconstructed images are created on an independent workstation and reviewed. FINDINGS: Exam is suboptimal due to poor bolus or contrast opacification of the left heart system inc luding arch and carotid vessels. Carotid/Vascular Structures: There is normal three-vessel origin from aortic arch. There is minimal e ccentric plaque in the aortic arch. The right common carotid artery shows normal origin from the righ t brachiocephalic artery. There is no significant plaque or stenosis in visualized portion of right c ommon or internal carotid artery. Tortuous course of the petrous and supraclinoid segment is redemons trated. There is patent external carotid artery without significant stenosis. The left common and internal carotid artery show no significant plaque or stenosis. There is patent l eft external carotid artery without significant plaque or stenosis. There is codominant vertebral basilar system. There is no significant plaque or stenosis. There are p atent posterior communicating artery is seen bilaterally. Images of the anterior circulation show no significant focal stenosis. Patent anterior communicating artery is not identified. Other: Visualized portion of brain parenchyma shows no new suspicious robb-white matter blurring. The re is long segment anterior fusion hardware and ossific fusion from C3 through C7 levels. There is sl ight levoconvex scoliotic curvature centered in the upper thoracic spine. IMPRESSION: 1. Suboptimal study without significant plaque or stenosis in common or internal carotid arteries radha aterally. 2. No aneurysmal change at level of the [place].
--- NOTE | 2017-05-07 12:08 | XR ---
EXAMINATION TYPE: XR chest 2V DATE OF EXAM: 05/07/2017 COMPARISON: Chest x-ray January 24, 2017. HISTORY: Slurred speech. Chest pain and shortness of breath this morning. TECHNIQUE: Frontal and lateral views of the chest are obtained. FINDINGS: There is chronic parenchymal change without suspicious new focal air space opacity, pleura l effusion, or pneumothorax seen. The cardiac silhouette size is within normal limits. There is part ial visualization of anterior fusion hardware in the lower cervical spine. IMPRESSION: Chronic parenchymal changes without acute pulmonary process.
[2017-05-07] MEDS ORDERED: ALBUTEROL NEBULIZED 2.5 MG/3 ML INHALATION PRN (13:11)
--- NOTE | 2017-05-07 15:00 | P.HPIM ---
History of Present Illness H&P Date: 05/07/17 Chief Complaint: Slurred speech and chest pain This is a 56-year-old male with a known past medical history of TIA, atrial fibrillation, hypertension, hyperlipidemia, COPD, also arthritis, chronic neck and back pain. Patient presents to the emergency room with complaints of slurred speech that started around 8:30 this morning. It lasted for about 3 hours and then resolved. He also complained of left-sided chest pain and pain in his left axilla. Does admit to having some shortness of breath. And feeling his heart beat fast. He feels these symptoms when he usually goes into atrial fibrillation. And symptoms have improved. Patient reports that his pain is worse when he lifts his left arm above his head. He's also complaining of left elbow pain in which she feels that it's a tennis elbow. He had initially gone to his PCP to get a steroid injection for his elbow. However with his other complaints his PCP recommended that he comes to the hospital for further evaluation. Patient had a computed tomography scan of the brain which showed no acute intracranial hemorrhage or midline shift. There is mild diffuse age-related cerebral atrophy redemonstrated. CTA of the head and neck was supple. Small study without significant plaque or stenosis in the common or internal carotid arteries bilaterally. No aneurysmal change at the level of the [place]. Chest x-ray showed no acute changes. EKG showing a normal sinus rhythm. First troponin is negative. Patient seen evaluated in the emergency room. Case discussed with Dr. Rangel, the ER physician. He was informed by the neuro interventional list to hold the Eliquis. The Eliquis was to remain on hold until after we get the MRI results of the brain. Patient denies any nausea or vomiting. Denies any diaphoresis. Denies any fever or chills or sweats. Denies any bowel movement changes or urinary symptoms. He does report that there are months that he has several episodes of slurred speech. They resolve in a short period of time and he does not get them checked out. His last hospitalization for TIA was in 2016. He has prior history of cardiac ablation. He reports needing 3 more procedures for his atrial fibrillation with Dr. Garcia. His next one scheduled in a couple weeks. Cardiology and neurology have been consulted Review of Systems Please refer to HPI otherwise unremarkable Past Medical History Past Medical History: Atrial Fibrillation, COPD, CVA/TIA, GERD/Reflux, Hypertension, Osteoarthritis (OA), Prostate Disorder Additional Past Medical History / Comment(s): See Dr Vasquez's H&P, varicose veins, ENLARGED PROSTATE, testicular hypofunction History of Any Multi-Drug Resistant Organisms: None Reported Past Surgical History: Back Surgery, Cholecystectomy, Joint Replacement, Tonsillectomy Additional Past Surgical History / Comment(s): heart valve sx(OPEN HEART) at age 3, neck fusion ,uvula removed,rt knee replaced Past Anesthesia/Blood Transfusion Reactions: No Reported Reaction Past Psychological History: No Psychological Hx Reported Smoking Status: Former smoker Past Alcohol Use History: Occasional Past Drug Use History: None Reported - Past Family History Mother Family Medical History: No Reported History Father Family Medical History: Myocardial Infarction ([place]) Medications and Allergies Home Medications Medication Instructions Recorded Confirmed Type Dexlansoprazole [Dexilant] 60 mg PO QAM 06/12/15 05/07/17 History Tamsulosin [Flomax] 0.4 mg PO HS 06/12/15 05/07/17 History Apixaban [Eliquis] 5 mg PO BID #60 tab 01/28/16 05/07/17 Rx Gabapentin 1,600 mg PO BID 03/18/16 05/07/17 History Albuterol Inhaler [Ventolin Hfa 2 puff INHALATION RT-Q4H PRN 01/30/17 05/07/17 History Inhaler] Fluticasone/Vilanterol [Breo 1 puff INHALATION RT-DAILY 01/30/17 05/07/17 History Ellipta 100-25 Mcg Inhaler] Umeclidinium [place] [Incruse 1 puff INHALATION RT-DAILY 01/30/17 05/07/17 History Ellipta] Metoprolol Tartrate [Lopressor] 50 mg PO BID #60 tab 02/01/17 05/07/17 Rx Atorvastatin [Lipitor] 80 mg PO HS 05/07/17 05/07/17 History Lisinopril [Zestril] 10 mg PO DAILY 05/07/17 05/07/17 History Nortriptyline [Pamelor] 100 mg PO HS 05/07/17 05/07/17 History Propafenone [Rythmol] 150 mg PO TID 05/07/17 05/07/17 History Spironolactone 50 mg PO DAILY 05/07/17 05/07/17 History Sucralfate [Carafate] 1 gm PO BID 05/07/17 05/07/17 History Tadalafil [Cialis] 5 mg PO DAILY PRN 05/07/17 05/07/17 History Allergies Allergy/AdvReac Type Severity Reaction Status Date / Time No Known Allergies Allergy Verified 05/07/17 12:07 Physical Exam Vitals: Vital Signs Temp Pulse Resp BP Pulse Ox 05/07/17 14:15 97.6 F 69 18 113/79 98 05/07/17 12:20 68 18 115/88 98 05/07/17 11:20 74 22 141/93 96 05/07/17 11:05 78 22 124/95 96 05/07/17 10:50 97.8 F 75 22 157/82 95 Intake and Output 05/06/17 05/07/17 05/07/17 22:59 06:59 14:59 Other: Weight 102.058 kg Head normocephalic Neck supple Lungs clear to auscultation bilaterally no wheezing or crackles Heart regular rate and rhythm S1-S2, no rub or gallop Abdomen is soft nontender nondistended positive bowel sounds no hepatosplenomegaly Extremities no edema left elbow tender with palpation of the lateral condyle. Minimal Swelling noted. No redness or discoloration Neuro alert and orientated to 3. Hand project leader equal bilaterally no slurred speech or facial droop. Lower extremity strength equal bilaterally Results CBC & Chem 7: 05/07/17 10:45 05/07/17 10:45 Labs: Abnormal Lab Results - Last 24 Hours (Table) 05/07/17 Range/Units 10:50 POC Glucose (mg/dL) 105 H (75-99) mg/dL Assessment and Plan Assessment: 1. Possible TIA with slurred speech: Now resolved. computed tomography scan of the brain showed no acute changes. Neurology consulted. CTA of the head and neck showed no carotid stenosis and no aneurysm in the [place]. EKG showing a normal sinus rhythm. Currently on telemetry to monitor for any cardiac arrhythmias. Last echo was in January 2017 showing an EF of 50-55%. Mild left ventricle hypertrophy. Mild tricuspid regurgitation and mitral regurgitation. And trace to mild pulmonic regurgitation. The neurology interventional list is recommending to hold the Eliquis until MRI of the brain results are completed. Continue statin and continue Eliquis for anticoagulation and secondary stroke prevention 2. History of paroxysmal atrial fibrillation: Patient has had cardiac ablations. He is currently on Rythmol metoprolol and Eliquis at home. Cardiology will be consulted 3. History of Prior TIAs 4. Left sided chest pain. First troponin negative EKG normal sinus rhythm with a left axis deviation. Cardiology will be consulted. Continue to monitor cardiac enzymes 5. Left elbow pain: X-ray left elbow. Add [place] for pain control 6. Chronic neck and back pain 7. Essential hypertension: Blood pressure stable resume lisinopril, metoprolol 8. Hyperlipidemia 9. COPD: Stable. Resume home medications GI prophylaxis Protonix and DVT prophylaxis Eliquis Time with Patient: Greater than 30 (Greater than 50% of the total time spent in counseling and coordination of care.I performed an examination of the patient and discussed their management with the physician Senior Civil Engineer. I have reviewed the Physician Senior Civil Engineer's notes and agree with the documented findings and plan of care)
--- NOTE | 2017-05-07 15:28 | XR ---
EXAMINATION TYPE: XR elbow complete LT DATE OF EXAM: 05/07/2017 CLINICAL HISTORY: Left elbow pain. TECHNIQUE: Frontal, lateral and oblique images of the left elbow are obtained. COMPARISON: None FINDINGS: There is no acute fracture/dislocation evident in the left elbow. No abnormal fat pad sig ns are seen. Peripheral IV antecubital fossa is noted. IMPRESSION: There is no acute fracture or dislocation in the left elbow.
[2017-05-07] MEDS: HYDROcodone/APAP 5-325MG 1 EACH TAB PO PRN ×2 (17:51→22:09)
[2017-05-07] MEDS: PROPAFENONE 150 MG TAB PO SCH ×2 (17:59→20:45)
[2017-05-07] MEDS: APIXABAN 5 MG TAB PO SCH (17:59)
--- NOTE | 2017-05-07 18:29 | P.CNNES ---
History of Present Illness Consult date: 05/07/17 Reason for Consult: Patient with recurrent TIA and slurred speech. History of Present Illness: This patient is a 56-year-old right-handed white male who apparently at about 8: 30 this morning had an episode of chest pain as well as difficulty with his speech. Patient has a long-standing history of chronic atrial fibrillation. He has been seen in the cardiology clinic with Dr. Vasquez who did perform a ablation procedure about a month ago. He is scheduled to have a second ablation procedure next week with Dr. Vasquez. The patient apparently was feeling his heart was racing at home and likely was in an episode of atrial fibrillation. His speech was very hard for him to get his words out. This symptoms did gradually improve. Apparently they've recurred several hours later and he decided to come to the emergency room for further evaluation. Patient was seen in the ER by Dr. Rangel. He was sent for an immediate computed tomography scan of the brain which revealed no acute intracranial hemorrhage or midline shift. There was mild diffuse age-related cerebral atrophy noted. He also had a CTA angiogram of the head and neck which revealed no significant stenosis of the carotid arteries bilaterally. There was no evidence of any aneurysm at the level of the [place] of [place]. Dr. Rangel did contact the neuro interventional this regarding his NIH stroke scale which was noted to be 3.0. The neuro interventionalists determined he was not a candidate for TPA and he was admitted to hospital for full stroke evaluation. The patient states his symptoms have improved but his still feels he is having some difficulty with his speech at times. This morning he was clearly having word finding difficulties which was quite noticeable to him and his . We have recommended the patient undergo an MRI of the brain for further evaluation. Given his history of chronic atrial fibrillation he had been treated for this condition by his letter carrier and has been taking Eliquis for long-term anticoagulation. After his computed tomography scan of the brain revealed no evidence of any hemorrhage he was restarted on the Eliquis today. We are recommending cardiology to see this patient regarding his history of chronic atrial fibrillation. Despite being on anticoagulant he continues to have symptoms of TIA. His last TIA possibly occurred about 3 weeks ago. We will await further evaluation and recommendations from cardiology. His left-sided chest pain has also improved. His first troponin did come back negative. He does continue to complain of left elbow pain which is been ongoing and is possibly related to tendinitis. He did go for an x-ray of the left elbow which was normal. The patient states he has no previous history of stroke. His TIA seem to be occurring more frequently in the last few months. He has now been admitted and neurology has been consulted for further evaluation and recommendations. Review of Systems Constitutional: Denies chills, Denies fever Eyes: denies blurred vision, denies pain Ears, nose, mouth and throat: Denies headache, Denies sore throat Cardiovascular: Reports irregular heart beat, Reports lightheadedness, Denies chest pain, Denies shortness of breath Respiratory: Denies cough Gastrointestinal: Denies abdominal pain, Denies diarrhea, Denies nausea, Denies vomiting Musculoskeletal: Denies myalgias Integumentary: Denies pruritus, Denies rash Neurological: Reports aphasia, Reports change in mentation, Reports change in speech, Reports motor disturbance, Reports tingling, Denies numbness, Denies weakness Psychiatric: Denies anxiety, Denies depression Endocrine: Denies fatigue, Denies weight change Past Medical History Past Medical History: Atrial Fibrillation, COPD, CVA/TIA, GERD/Reflux, Hypertension, Osteoarthritis (OA), Prostate Disorder Additional Past Medical History / Comment(s): See Dr Vasquez's H&P, varicose veins, ENLARGED PROSTATE, testicular hypofunction, per pt had stroke 2016 - had diff with speech initially resolved but since has had episodic bouts of difficulty with speech and swallowing. History of Any Multi-Drug Resistant Organisms: None Reported Past Surgical History: Back Surgery, Cholecystectomy, Joint Replacement, Tonsillectomy Additional Past Surgical History / Comment(s): heart valve sx(OPEN HEART) at age 3, neck fusion ,uvula removed,rt knee replaced. ep study, cardiac ablation Past Anesthesia/Blood Transfusion Reactions: No Reported Reaction Smoking Status: Former smoker - Past Family History Mother Family Medical History: Myocardial Infarction ([place]) Additional Family Medical History / Comment(s): mom from [place] at age 48 Father Family Medical History: Myocardial Infarction ([place]) Additional Family Medical History / Comment(s): from [place] at age 54 Medications and Allergies Home Medications Medication Instructions Recorded Confirmed Type Dexlansoprazole [Dexilant] 60 mg PO QAM 06/12/15 05/07/17 History Tamsulosin [Flomax] 0.4 mg PO HS 06/12/15 05/07/17 History Apixaban [Eliquis] 5 mg PO BID #60 tab 01/28/16 05/07/17 Rx Gabapentin 1,600 mg PO BID 03/18/16 05/07/17 History Albuterol Inhaler [Ventolin Hfa 2 puff INHALATION RT-Q4H PRN 01/30/17 05/07/17 History Inhaler] Fluticasone/Vilanterol [Breo 1 puff INHALATION RT-DAILY 01/30/17 05/07/17 History Ellipta 100-25 Mcg Inhaler] Umeclidinium [place] [Incruse 1 puff INHALATION RT-DAILY 01/30/17 05/07/17 History Ellipta] Metoprolol Tartrate [Lopressor] 50 mg PO BID #60 tab 02/01/17 05/07/17 Rx Atorvastatin [Lipitor] 80 mg PO HS 05/07/17 05/07/17 History Lisinopril [Zestril] 10 mg PO DAILY 05/07/17 05/07/17 History Nortriptyline [Pamelor] 100 mg PO HS 05/07/17 05/07/17 History Propafenone [Rythmol] 150 mg PO TID 05/07/17 05/07/17 History Spironolactone 50 mg PO DAILY 05/07/17 05/07/17 History Sucralfate [Carafate] 1 gm PO BID 05/07/17 05/07/17 History Tadalafil [Cialis] 5 mg PO DAILY PRN 05/07/17 05/07/17 History Allergies Allergy/AdvReac Type Severity Reaction Status Date / Time No Known Allergies Allergy Verified 05/07/17 12:07 Physical Examination - Vital Signs Vital Signs: Vital Signs Temp Pulse Resp BP Pulse Ox 05/07/17 14:15 97.6 F 69 18 113/79 98 05/07/17 12:20 68 18 115/88 98 05/07/17 11:20 74 22 141/93 96 05/07/17 11:05 78 22 124/95 96 05/07/17 10:50 97.8 F 75 22 157/82 95 Intake and Output 05/07/17 05/07/17 05/07/17 06:59 14:59 22:59 Intake Total 222 Output Total 500 Balance -278 Intake: Oral 222 Output: Urine 500 Other: Weight 102.058 kg - Constitutional General appearance: average body habitus, cooperative - EENT EENT: PERRL, mucous membranes moist - Respiratory Respiratory: lungs clear, normal breath sounds - Cardiovascular Cardiovascular: regular rate, normal S1, normal S2 Extremities: no peripheral edema bilaterally - Gastrointestinal Gastrointestinal: normoactive bowel sounds - Integumentary Integumentary: normal - Neurologic Cranial nerve examination: PERRL, EOMI, VFF, V1/V2/V3 grossly intact, face symmetric, tongue midline, intact gag reflex, intact corneal reflex, normal palatal elevation Speech examination: intact Sensorimotor examination: intact Motor examination - right side: 4/5: biceps, triceps, wrist flexion, wrist extension, film reader, hip flexors, knee extensors, dorsiflexion, toe extension (EHL) , plantarflexion Motor examination - left side: 4/5: biceps, triceps, wrist flexion, wrist extension, film reader, hip flexors, knee extensors, dorsiflexion, toe extension (EHL) , plantarflexion Detailed sensory examination: intact Reflex and gait examination: intact Reflexes: 1+: ankle, bicep, knee, tricep - Musculoskeletal Musculoskeletal: no pain - Psychiatric Psychiatric: mood/affect appropriate, cooperative Results - Laboratory Findings CBC and BMP: 05/07/17 10:45 05/07/17 10:45 Abnormal Lab Findings: Abnormal Labs 05/07/17 10:50 POC Glucose (mg/dL) 105 H Assessment and Plan (1) Transient ischemic attack (TIA) Current Visit: Yes Status: Acute Code(s): G45.9 - TRANSIENT CEREBRAL ISCHEMIC ATTACK, UNSPECIFIED SNOMED Code(s): 900287171 (2) Atrial fibrillation Current Visit: No Status: Acute Code(s): I48.91 - UNSPECIFIED ATRIAL FIBRILLATION SNOMED Code(s): 42387832 (3) History of cardiac radiofrequency ablation Current Visit: Yes Status: Acute Code(s): Z98.890 - OTHER SPECIFIED POSTPROCEDURAL STATES SNOMED Code(s): 005545614 (4) Aphasia Current Visit: No Status: Acute Code(s): R47.01 - APHASIA SNOMED Code(s): 83913078 Plan: This patient is a 56-year-old female was admitted to hospital today with symptoms of acute onset of word finding difficulties and TIA. He was brought into the emergency room this afternoon and was seen in the ER by Dr. Rangel. He was sent for a computed tomography scan of the brain and a code stroke was initiated in the ER. The neuro interventionalist reviewed his CAT scan and CTA angiogram study of the head and neck and determined he was not a candidate for TPA. Patient was admitted to the hospital for a full stroke evaluation. Patient's symptoms were one of word finding difficulties and mild confusion. His symptoms did resolve in the ER. His NIH stroke scale in the ER was noted to be 3.0 on initial evaluation. The patient is scheduled to undergo MRI of the brain for further evaluation. He does have history of chronic atrial fibrillation and is followed closely in the cardiology clinic for this condition. He is undergone a ablation procedure about 2 weeks ago and is scheduled to have a second procedure done by Dr. Moody. We will await further recommendations from cardiology regarding his recurrent TIA symptoms despite being treated with Eloquis is for long-term anticoagulation. We did review the results of the computed tomography scan of the brain and CT angiogram of the head and neck in detail with the patient and his at bedside. All of their questions were answered. We are recommending MRI of the brain to be done for further assessment. His overall prognosis at this time remains guarded. Time with Patient: Greater than 30
[2017-05-07] MEDS: SODIUM CHLORIDE 0.9% 1,000 ML IV SCH ×2 (20:39→23:18)
[2017-05-07] MEDS: ATORVASTATIN 80 MG TAB PO SCH (20:42)
[2017-05-07] MEDS: NORTRIPTYLINE 25 MG CAP PO SCH (20:43)
[2017-05-07] MEDS: GABAPENTIN 400 MG CAP PO SCH (20:43)
[2017-05-07] MEDS: METOPROLOL TARTRATE 50 MG TAB PO SCH (20:43)
[2017-05-07] MEDS: TAMSULOSIN 0.4 MG CAP.ER.24H PO SCH (20:44)
[2017-05-07] MEDS: SUCRALFATE 1 GM TAB PO SCH (20:44)
[2017-05-07 22:03] VITALS: RESP 18
[2017-05-08] MEDS: HYDROcodone/APAP 5-325MG 1 EACH TAB PO PRN ×4 (02:40→17:49)
[2017-05-08 06:17] LABS: Basophils % (A) 0 %; Eosinophils # (A) 0.2 k/uL (0-0.7); Eosinophils % (A) 3 %; HCT 41.7 % (39.0-53.0); HGB 14.2 gm/dL (13.0-17.5); Lymphocytes # (A) 2.2 k/uL (1.0-4.8); Lymphocytes % (A) 37 %; MCH 29.7 pg (25.0-35.0); MCV 87.3 fL (80.0-100.0); Mean Platelet Volume 8.2; Monocytes # (A) 0.4 k/uL (0-1.0); Monocytes % (A) 6 %; Neutrophils % (A) 51 %; Platelet Count 168 k/uL (150-450); RBC 4.77 m/uL (4.30-5.90); WBC 5.9 k/uL (3.8-10.6)
[2017-05-08] MEDS: PANTOPRAZOLE 40 MG TABLET PO SCH (06:30)
[2017-05-08 06:36] LABS: ALT 46 U/L (21-72); AST 29 U/L (17-59); Albumin 3.6 g/dL (3.5-5.0); Alkaline Phosphatase 93 U/L (38-126); Anion Gap 10 mmol/L; Blood Urea Nitrogen 14 mg/dL (9-20); Calcium 9.1 mg/dL (8.4-10.2); Carbon Dioxide 30 mmol/L (22-30); Chloride 102 mmol/L (98-107); Cholesterol 107 mg/dL (<200); Glucose 87 mg/dL (74-99); HDL Cholesterol 49 mg/dL (40-60); LDL Cholesterol,Calculated 38 mg/dL (0-99); Potassium 4.9 mmol/L (3.5-5.1); Sodium 142 mmol/L (137-145); Total Bilirubin 0.9 mg/dL (0.2-1.3); Total Protein 5.9 g/dL (6.3-8.2); Triglycerides 98 mg/dL (<150)
[2017-05-08] MEDS: APIXABAN 5 MG TAB PO SCH ×2 (07:47→20:47)
[2017-05-08] MEDS: METOPROLOL TARTRATE 50 MG TAB PO SCH (07:48)
[2017-05-08] MEDS: LISINOPRIL 10 MG TAB PO SCH (07:48)
[2017-05-08] MEDS: GABAPENTIN 400 MG CAP PO SCH ×2 (07:48→20:47)
[2017-05-08] MEDS: PROPAFENONE 150 MG TAB PO SCH ×3 (07:49→20:48)
[2017-05-08] MEDS: IPRATROPIUM 0.5 MG/2.5 ML NEBU INHALATION SCH ×4 (07:49→20:13)
[2017-05-08] MEDS: SYMBICORT 80-4.5 MCG INHALER INHALATION SCH ×2 (07:49→20:13)
[2017-05-08] MEDS: SPIRONOLACTONE 25 MG TAB PO SCH (07:50)
[2017-05-08] MEDS: SUCRALFATE 1 GM TAB PO SCH ×2 (07:51→20:48)
[2017-05-08] MEDS: SODIUM CHLORIDE 0.9% 1,000 ML IV SCH ×2 (07:52→19:44)
--- NOTE | 2017-05-08 09:34 | P.CRDCN ---
History of Present Illness Consult date: 05/08/17 Chief complaint: chest pain History of present illness: This is a pleasant 56-year-old gentleman with a past medical history significant for paroxysmal atrial fibrillation, hypertension, and dyslipidemia, and history of TIA, presented to the hospital complaining of slurred speech as well as right sided weakness. The patient had an episode of TIA according to him about 2 years ago. He is known to have paroxysmal atrial fibrillation and he just underwent pulmonary vein isolation about a few weeks ago. Beside that he is on chronic anticoagulation using Eliquis. He was in his usual state of health until yesterday when he was at toward and suddenly developed slurred speech associated with right sided weakness. He stated that the symptoms have improved. The symptoms reminded him with what he had 2 years ago. He states since the last episode 2 years ago he still have fairly might start speech but it got worse yesterday. Beside that he felt his heart rate was going up and he felt that he went into A. fib with RVR until he presented to the emergency room. With it, he was experiencing some chest pain and chest discomfort. The patient cardiac workup came in to be completely unremarkable. The EKG showed sinus rhythm. He did not have any A. fib during his hospitalization so far. The cardiac enzymes came in to be unremarkable. The patient underwent a computed tomography scan of the brain and he was seen by the neurology service as well.he continues to be hemodynamically stable. The patient is a scheduled to undergo another ablation by Dr. Vasquez in in the next few days. Past Medical History Past Medical History: Atrial Fibrillation, COPD, CVA/TIA, GERD/Reflux, Hypertension, Osteoarthritis (OA), Prostate Disorder Additional Past Medical History / Comment(s): See Dr Vasquez's H&P, varicose veins, ENLARGED PROSTATE, testicular hypofunction, per pt had stroke 2016 - had diff with speech initially resolved but since has had episodic bouts of difficulty with speech and swallowing. History of Any Multi-Drug Resistant Organisms: None Reported Past Surgical History: Back Surgery, Cholecystectomy, Joint Replacement, Tonsillectomy Additional Past Surgical History / Comment(s): heart valve sx(OPEN HEART) at age 3, neck fusion ,uvula removed,rt knee replaced. ep study, cardiac ablation Past Anesthesia/Blood Transfusion Reactions: No Reported Reaction Smoking Status: Former smoker - Past Family History Mother Family Medical History: Myocardial Infarction ([place]) Additional Family Medical History / Comment(s): mom from mi at age 48 Father Family Medical History: Myocardial Infarction ([place]) Additional Family Medical History / Comment(s): from [place] at age 54 Medications and Allergies Home Medications Medication Instructions Recorded Confirmed Type Dexlansoprazole [Dexilant] 60 mg PO QAM 06/12/15 05/07/17 History Tamsulosin [Flomax] 0.4 mg PO HS 06/12/15 05/07/17 History Apixaban [Eliquis] 5 mg PO BID #60 tab 01/28/16 05/07/17 Rx Gabapentin 1,600 mg PO BID 03/18/16 05/07/17 History Albuterol Inhaler [Ventolin Hfa 2 puff INHALATION RT-Q4H PRN 01/30/17 05/07/17 History Inhaler] Fluticasone/Vilanterol [Breo 1 puff INHALATION RT-DAILY 01/30/17 05/07/17 History Ellipta 100-25 Mcg Inhaler] Umeclidinium [place] [Incruse 1 puff INHALATION RT-DAILY 01/30/17 05/07/17 History Ellipta] Metoprolol Tartrate [Lopressor] 50 mg PO BID #60 tab 02/01/17 05/07/17 Rx Atorvastatin [Lipitor] 80 mg PO HS 05/07/17 05/07/17 History Lisinopril [Zestril] 10 mg PO DAILY 05/07/17 05/07/17 History Nortriptyline [Pamelor] 100 mg PO HS 05/07/17 05/07/17 History Propafenone [Rythmol] 150 mg PO TID 05/07/17 05/07/17 History Spironolactone 50 mg PO DAILY 05/07/17 05/07/17 History Sucralfate [Carafate] 1 gm PO BID 05/07/17 05/07/17 History Tadalafil [Cialis] 5 mg PO DAILY PRN 05/07/17 05/07/17 History Allergies Allergy/AdvReac Type Severity Reaction Status Date / Time No Known Allergies Allergy Verified 05/07/17 12:07 Physical Exam Vitals: Vital Signs Temp Pulse Pulse Pulse Resp BP BP 05/08/17 08:00 80 05/08/17 07:50 76 05/08/17 07:42 96.9 F L 66 18 131/83 05/08/17 04:00 97.0 F L 64 18 103/70 05/08/17 00:00 96.9 F L 68 18 126/68 05/07/17 20:00 96.9 F L 76 18 119/75 05/07/17 16:00 97.6 F 72 16 123/71 05/07/17 14:15 97.6 F 69 18 113/79 05/07/17 12:20 68 18 115/88 05/07/17 11:20 74 22 141/93 05/07/17 11:05 78 22 124/95 05/07/17 10:50 97.8 F 75 22 157/82 Pulse Ox 05/08/17 08:00 05/08/17 07:50 05/08/17 07:42 99 05/08/17 04:00 94 L 05/08/17 00:00 94 L 05/07/17 20:00 95 05/07/17 16:00 95 05/07/17 14:15 98 05/07/17 12:20 98 05/07/17 11:20 96 05/07/17 11:05 96 05/07/17 10:50 95 Intake and Output 05/07/17 05/08/17 05/08/17 22:59 06:59 14:59 Intake Total 222 240 Output Total 500 Balance -278 240 Intake: Oral 222 240 Output: Urine 500 Other: # Voids 1 Weight 95.5 kg - Constitutional General appearance: no acute distress - Respiratory Respiratory: bilateral: CTA - Cardiovascular Rhythm: regular Heart sounds: normal: S1, S2 Results 05/08/17 06:00 05/08/17 06:00 Cardiac Enzymes 05/07/17 05/07/17 05/07/17 Range/Units 10:45 10:45 16:30 AST 26 (17-59) U/L CK-MB (CK-2) 0.4 (0.0-2.4) ng/mL Troponin I <0.012 <0.012 (0.000-0.034) ng/mL 05/07/17 05/08/17 Range/Units 22:58 06:00 AST 29 (17-59) U/L CK-MB (CK-2) (0.0-2.4) ng/mL Troponin I <0.012 (0.000-0.034) ng/mL Coagulation 05/07/17 Range/Units 10:45 PT 9.8 (9.0-12.0) sec APTT 23.7 (22.0-30.0) sec Lipids 05/08/17 Range/Units 06:00 Triglycerides 98 (<150) mg/dL Cholesterol 107 (<200) mg/dL HDL Cholesterol 49 (40-60) mg/dL CBC 05/07/17 05/08/17 Range/Units 10:45 06:00 WBC 8.9 5.9 (3.8-10.6) k/uL RBC 4.87 4.77 (4.30-5.90) m/uL Hgb 15.2 14.2 (13.0-17.5) gm/dL Hct 41.8 41.7 (39.0-53.0) % Plt Count 212 168 (150-450) k/uL Comprehensive Metabolic Panel 05/07/17 05/08/17 Range/Units 10:45 06:00 Sodium 141 142 (137-145) mmol/L Potassium 4.4 4.9 (3.5-5.1) mmol/L Chloride 102 102 (98-107) mmol/L Carbon Dioxide 28 30 (22-30) mmol/L BUN 16 14 (9-20) mg/dL Creatinine 1.00 0.89 (0.66-1.25) mg/dL Glucose 95 87 (74-99) mg/dL Calcium 9.5 9.1 (8.4-10.2) mg/dL AST 26 29 (17-59) U/L ALT 36 46 (21-72) U/L Alkaline Phosphatase 95 93 (38-126) U/L Total Protein 6.7 5.9 L (6.3-8.2) g/dL Albumin 4.2 3.6 (3.5-5.0) g/dL Current Medications Generic Name Dose Route Start Last Admin Trade Name Freq PRN Reason Stop Dose Admin Hydrocodone Bitart/Acetaminophen 1 each 05/07/17 14:51 05/08/17 07:49 [place] 5-325 PO 1 each Q4HR PRN Administration Pain Albuterol Sulfate 2.5 mg 05/07/17 13:11 Ventolin Nebulized INHALATION RT-Q4H PRN Shortness Of Breath Apixaban 5 mg 05/07/17 21:00 05/08/17 07:47 Eliquis PO 5 mg BID REED Administration Atorvastatin Calcium 80 mg 05/07/17 21:00 05/07/17 20:42 Lipitor PO 80 mg HS REED Administration Budesonide/Formoterol Fumarate 2 puff 05/08/17 08:00 05/08/17 07:49 Symbicort 80-4.5 Mcg Inhaler INHALATION 2 puff RT-BID REED Administration Gabapentin 1,600 mg 05/07/17 21:00 05/08/17 07:48 Neurontin PO 1,600 mg BID REED Administration Sodium Chloride 1,000 mls @ 100 mls/hr 05/07/17 13:15 05/08/17 07:52 Saline 0.9% IV 100 mls/hr .Q10H REED Administration Ipratropium [place] 0.5 mg 05/08/17 08:00 05/08/17 07:49 Atrovent Nebulized INHALATION 0.5 mg RT-QID REED Administration Lisinopril 10 mg 05/08/17 09:00 05/08/17 07:48 Zestril PO 10 mg DAILY REED Administration Metoprolol Tartrate 50 mg 05/07/17 21:00 05/08/17 07:48 Lopressor PO 50 mg BID REED Administration Miscellaneous Information 1 each 05/07/17 10:58 Rx Info: Iv Contrast Was Given MISCELLANE 05/09/17 10:59 DAILY PRN Per Protocol Nortriptyline HCl 100 mg 05/07/17 21:00 05/07/17 20:43 Pamelor PO 100 mg HS REED Administration Pantoprazole Sodium 40 mg 05/08/17 07:30 05/08/17 06:30 Protonix PO 40 mg AC-[id number] REED Administration Propafenone HCl 150 mg 05/07/17 16:00 05/08/17 07:49 Rythmol PO 150 mg TID REED Administration Spironolactone 50 mg 05/08/17 09:00 05/08/17 07:50 Aldactone PO 50 mg DAILY REED Administration Sucralfate 1 gm 05/07/17 21:00 05/08/17 07:51 Carafate PO 1 gm BID REED Administration Tamsulosin HCl 0.4 mg 05/07/17 21:00 05/07/17 20:44 Flomax PO 0.4 mg HS REED Administration Intake and Output 05/07/17 05/08/17 05/08/17 22:59 06:59 14:59 Intake Total 222 240 Output Total 500 Balance -278 240 Intake: Oral 222 240 Output: Urine 500 Other: # Voids 1 Weight 95.5 kg 05/08/17 06:00 05/08/17 06:00 Assessment and Plan Assessment: assessment #1 TIA #2 paroxysmal atrial fibrillation #3 hypertension #4 dyslipidemia Plan #1 I would increase the dose of metoprolol #2 continue the oral anticoagulation with Eliquis. #3 severe underlying coronary artery disease needs to be ruled out. I will obtain the last stress test from the office. If it's more than one year the patient need to have another stress test. #4 the patient might benefit also from the watchman device for atrial fibrillation. We'll continue following up with him and thank you for allowing us participate in his care
--- NOTE | 2017-05-08 13:10 | MR ---
EXAMINATION TYPE: MR brain wo/w con DATE OF EXAM: 05/08/2017 12:58 PM COMPARISON: Previous study dated 01/23/2017. HISTORY: slurred speech, gadavist 10 TECHNIQUE: Multiplanar, multiecho imaging of the brain was obtained with and without intravenous adm inistration of 10 mL intravenous Gadavist. FINDINGS: The study is compromised by patient motion artifact Midline structures are unremarkable. There is a normal craniocervical junction. Echoplanar diffusion imaging is normal. There are normal vascular flow voids. The orbits are unremarkable. There is no evidence of a CP angle mass lesion. There are scattered, high signal FLAIR lesions in both renal hemispheres. These are not changed appre ciably from the previous examination. There is no mass effect, midline shift or intracranial blood. The postgadolinium images are quite nausea due to motion. There is a very questionable area of increa sed enhancement in the right-sided cerebellum. This is more questionable on the coronal images. No ot her definite areas of abnormal enhancement is seen. IMPRESSION: 1. QUESTIONABLE AREA OF ENHANCEMENT IN THE RIGHT CEREBELLUM IS NOT CORROBORATED ON ADDITIONAL IMAGING . 2. NO ACUTE INTRACRANIAL ABNORMALITY. 3. SCANT COMPROMISED PATIENT MOTION ARTIFACT. 4. SCATTERED, STABLE HIGH SIGNAL FLAIR LESIONS IN THE CEREBRAL HEMISPHERES BILATERALLY. THESE ARE QUE STIONABLE SIGNIFICANCE.
--- NOTE | 2017-05-08 15:08 | P.PN ---
Subjective Progress Note Date: 05/08/17 Patient is doing well today. No events overnight Objective - Vital Signs Vital signs: Vital Signs Temp 96.2 F L 05/08/17 10:50 Pulse 63 05/08/17 10:50 Resp 18 05/08/17 10:50 BP 120/81 05/08/17 10:50 Pulse Ox 95 05/08/17 10:50 Intake & Output 05/07/17 05/08/17 05/08/17 18:59 06:59 18:59 Intake Total 222 240 Output Total 500 Balance -278 240 Weight 102.058 kg 95.5 kg Intake: Oral 222 240 Output: Urine 500 Other: # Voids 1 - Exam General: The patient is awake and alert, in no distress Eye: there is normal conjunctiva bilaterally. Neck: The neck is supple, there is no JVD. Cardiovascular: Normal S1-S2, no S3-S4, no murmurs. Respiratory: Lungs clear to auscultation bilaterally Gastrointestinal: Abdomen is soft, nontender Musculoskeletal: There is no pedal edema. Neurological:. Speech is normal. Skin: Skin is warm and dry - Labs CBC & Chem 7: 05/08/17 06:00 05/08/17 06:00 Labs: Abnormal Lab Results - Last 24 Hours (Table) 05/08/17 Range/Units 06:00 Total Protein 5.9 L (6.3-8.2) g/dL Assessment and Plan Assessment: 1. Possible TIA with slurred speech: Now resolved. MRI of the brain showed no acute intracranial abnormality. There was no specific area of enhancement in the right cerebellar awaiting further comments from neurology computed tomography scan of the brain showed no acute changes. CTA of the head and neck showed no carotid stenosis and no aneurysm in the [place] of [place]. EKG showing a normal sinus rhythm. Currently on telemetry to monitor for any cardiac arrhythmias. Last echo was in January 2017 showing an EF of 50-55%. Mild left ventricle hypertrophy. Mild tricuspid regurgitation and mitral regurgitation. And trace to mild pulmonic regurgitation. The neurology interventional list is recommending to hold the Eliquis until MRI of the brain results are completed. Continue statin and continue Eliquis for anticoagulation and secondary stroke prevention 2. History of paroxysmal atrial fibrillation: Patient has had cardiac ablations. He is currently on Rythmol metoprolol and Eliquis at home. Cardiology consulted 3. History of Prior TIAs 4. Left sided chest pain. Now resolved. Awaiting last stress test report from cardiology office 5. Essential hypertension: Blood pressure stable resume lisinopril, metoprolol 6. Hyperlipidemia 7. COPD: With no acute exacerbation GI prophylaxis Protonix and DVT prophylaxis Eliquis
[2017-05-08] MEDS ORDERED: LACTULOSE 20 GM/30 ML CUP PO ONE (20:18)
[2017-05-08] MEDS: ATORVASTATIN 80 MG TAB PO SCH (20:47)
[2017-05-08] MEDS: TAMSULOSIN 0.4 MG CAP.ER.24H PO SCH (20:48)
[2017-05-08] MEDS: NORTRIPTYLINE 25 MG CAP PO SCH (20:48)
[2017-05-08] MEDS: HYDROcodone/APAP 10-325MG 1 EACH TAB PO PRN (22:10)
--- NOTE | 2017-05-08 22:54 | P.PN ---
Subjective Progress Note Date: 05/08/17 This patient is a 56-year-old male who is being evaluated for recent episode of TIA. Patient presented with symptoms of right-sided arm numbness and facial numbness and slurred speech. He was able to complete a MRI of the brain today which failed to reveal any evidence of acute stroke. Post gadolinium images revealed a very questionable area of increased enhancement in the right cerebellum. Diffusion weighted imaging failed to reveal any evidence of acute ischemic stroke. Results of the MRI were discussed today with the patient. He has been doing much better today and has no further recurrence of TIA symptoms. He has a history of paroxysmal atrial fibrillation and is undergoing extensive treatment for this condition with cardiology. He is being evaluated for possible second ablation procedure later this week by cardiology. He is to continue on Elquis is for long-term anticoagulation. Cardiology is following his progress very closely. Distal segment a prolonged was increased today. Neurologically he remains totally intact. We will continue close neurological follow-up for the patient. His overall prognosis remains guarded. Objective - Vital Signs Vital signs: Vital Signs Temp 97.0 F L 05/08/17 20:00 Pulse 72 05/08/17 20:28 Resp 18 05/08/17 20:00 BP 113/63 05/08/17 20:00 Pulse Ox 97 05/08/17 20:15 Intake & Output 05/08/17 05/08/17 05/09/17 06:59 18:59 06:59 Intake Total 600 Balance 600 Weight 95.5 kg Intake: Oral 600 Other: # Voids 1 - Exam Physical examination: PHYSICAL EXAMINATION: Patient is resting comfortably in bed. VITAL SIGNS: Blood pressure is [104/62]. Heart rate is [64]. Respiration is [18] . Temperature is [97.0]. HEENT: Head is atraumatic, neck is supple, there were no carotid bruits. CHEST: Lungs are clear to auscultation and percussion. CARDIAC: S1, S2 normal rate and rhythm. There is no murmur. ABDOMEN: Soft and nontender. Bowel sounds are present. EXTREMITIES: There is no pedal edema. Peripheral pulses are present. Neurological examination: Patient has a nonfocal neurological examination today. - Labs CBC & Chem 7: 05/08/17 06:00 05/08/17 06:00 Labs: Abnormal Lab Results - Last 24 Hours (Table) 05/08/17 Range/Units 06:00 Total Protein 5.9 L (6.3-8.2) g/dL Assessment and Plan (1) Transient ischemic attack (TIA) Current Visit: Yes Status: Acute Code(s): G45.9 - TRANSIENT CEREBRAL ISCHEMIC ATTACK, UNSPECIFIED SNOMED Code(s): 188676553 (2) Atrial fibrillation Current Visit: No Status: Acute Code(s): I48.91 - UNSPECIFIED ATRIAL FIBRILLATION SNOMED Code(s): 87951172 (3) History of cardiac radiofrequency ablation Current Visit: Yes Status: Acute Code(s): Z98.890 - OTHER SPECIFIED POSTPROCEDURAL STATES SNOMED Code(s): 454775763 (4) Aphasia Current Visit: No Status: Acute Code(s): R47.01 - APHASIA SNOMED Code(s): 44922540 Plan: This patient is a 56-year-old female was admitted to hospital today with symptoms of acute onset of word finding difficulties and TIA. He was brought into the emergency room this afternoon and was seen in the ER by Dr. Rangel. He was sent for a computed tomography scan of the brain and a code stroke was initiated in the ER. The neuro interventionalist reviewed his CAT scan and CTA angiogram study of the head and neck and determined he was not a candidate for TPA. Patient was admitted to the hospital for a full stroke evaluation. Patient's symptoms were one of word finding difficulties and mild confusion. His symptoms did resolve in the ER. His NIH stroke scale in the ER was noted to be 3.0 on initial evaluation. The patient is scheduled to undergo MRI of the brain for further evaluation. He does have history of chronic atrial fibrillation and is followed closely in the cardiology clinic for this condition. He is undergone a ablation procedure about 2 weeks ago and is scheduled to have a second procedure done by Dr. Moody. We will await further recommendations from cardiology regarding his recurrent TIA symptoms despite being treated with Eliquis is for long-term anticoagulation. We did review the results of the computed tomography scan of the brain and CT angiogram of the head and neck in detail with the patient and his at bedside. All of their questions were answered. We are recommending MRI of the brain to be done for further assessment. MRI of the brain was completed today and results are as noted above. MRI fails to reveal any evidence of acute stroke. Cardiology is following him closely and he has had no further recurrence of TIA symptoms. Cardiology is increase his dose of metoprolol. Neurologically he is intact. He is to continue on his current dose of Eliquis for long-term anticoagulation. His overall prognosis at this time remains guarded.
[2017-05-09] MEDS: HYDROcodone/APAP 10-325MG 1 EACH TAB PO PRN ×3 (02:04→10:40)
[2017-05-09] MEDS: SODIUM CHLORIDE 0.9% 1,000 ML IV SCH (05:52)
[2017-05-09] MEDS: PANTOPRAZOLE 40 MG TABLET PO SCH (06:34)
[2017-05-09 06:54] LABS: Basophils # (A) 0.1 k/uL (0-0.2); Basophils % (A) 1 %; Eosinophils # (A) 0.3 k/uL (0-0.7); Eosinophils % (A) 4 %; HGB 14.5 gm/dL (13.0-17.5); Lymphocytes # (A) 2.8 k/uL (1.0-4.8); Lymphocytes % (A) 40 %; MCHC 33.8 g/dL (31.0-37.0); MCV 88.8 fL (80.0-100.0); Mean Platelet Volume 7.5; Monocytes # (A) 0.4 k/uL (0-1.0); Monocytes % (A) 6 %; Neutrophils # (A) 3.4 k/uL (1.3-7.7); Neutrophils % (A) 48 %; Platelet Count 192 k/uL (150-450); RBC 4.84 m/uL (4.30-5.90); RDW 13.2 % (11.5-15.5)
[2017-05-09 07:14] LABS: ALT 84 U/L (21-72); AST 63 U/L (17-59); Albumin 3.9 g/dL (3.5-5.0); Alkaline Phosphatase 115 U/L (38-126); Anion Gap 12 mmol/L; Blood Urea Nitrogen 14 mg/dL (9-20); Calcium 8.9 mg/dL (8.4-10.2); Carbon Dioxide 27 mmol/L (22-30); Chloride 102 mmol/L (98-107); Glucose 86 mg/dL (74-99); Potassium 4.5 mmol/L (3.5-5.1); Sodium 141 mmol/L (137-145); Total Bilirubin 0.7 mg/dL (0.2-1.3); Total Protein 6.4 g/dL (6.3-8.2)
[2017-05-09] MEDS: APIXABAN 5 MG TAB PO SCH (07:35)
[2017-05-09] MEDS: GABAPENTIN 400 MG CAP PO SCH (07:35)
[2017-05-09] MEDS: LISINOPRIL 10 MG TAB PO SCH (07:36)
[2017-05-09] MEDS: SUCRALFATE 1 GM TAB PO SCH (07:36)
[2017-05-09] MEDS: PROPAFENONE 150 MG TAB PO SCH (07:36)
[2017-05-09] MEDS: SPIRONOLACTONE 25 MG TAB PO SCH (07:36)
[2017-05-09] MEDS: IPRATROPIUM 0.5 MG/2.5 ML NEBU INHALATION SCH ×2 (08:00→11:04)
[2017-05-09] MEDS: SYMBICORT 80-4.5 MCG INHALER INHALATION SCH (08:00)
[2017-05-09 08:29] VITALS: TEMP 97
[2017-05-09] MEDS ORDERED: METOPROLOL TARTRATE 25 MG TAB PO SCH (09:00)
[2017-05-09] MEDS ORDERED: DOCUSATE 100 MG CAP PO SCH (09:00)
--- NOTE | 2017-05-09 09:21 | P.PN ---
Subjective Progress Note Date: 05/09/17 Principal diagnosis: paroxysmal atrial fibrillation This is a pleasant 56-year-old gentleman with a past medical history significant for paroxysmal atrial fibrillation, hypertension, and dyslipidemia, and history of TIA, presented to the hospital complaining of slurred speech as well as right sided weakness. The patient had an episode of TIA according to him about 2 years ago. He is known to have paroxysmal atrial fibrillation and he just underwent pulmonary vein isolation about a few weeks ago. Beside that he is on chronic anticoagulation using Eliquis. He was in his usual state of health until yesterday when he was at toward and suddenly developed slurred speech associated with right sided weakness. He stated that the symptoms have improved. The symptoms reminded him with what he had 2 years ago. He states since the last episode 2 years ago he still have fairly might start speech but it got worse yesterday. Beside that he felt his heart rate was going up and he felt that he went into A. fib with RVR until he presented to the emergency room. With it, he was experiencing some chest pain and chest discomfort. The patient cardiac workup came in to be completely unremarkable. The EKG showed sinus rhythm. He did not have any A. fib during his hospitalization so far. The cardiac enzymes came in to be unremarkable. The patient underwent a computed tomography scan of the brain and he was seen by the neurology service as well.he continues to be hemodynamically stable. The patient is a scheduled to undergo another ablation by Dr. Vasquez in in the next few days. He has been maintaining normal sinus mechanism during his stay. Yesterday I did increase the dose of metoprolol to 50 mg by mouth twice a day and 25 mg by mouth at known time. From the cardiovascular standpoint overview, he can be discharged home. Objective - Vital Signs Vital signs: Vital Signs Temp 97 F L 05/09/17 08:00 Pulse 68 05/09/17 08:10 Resp 18 05/09/17 08:00 BP 131/83 05/09/17 08:00 Pulse Ox 95 05/09/17 08:02 Intake & Output 05/08/17 05/09/17 05/09/17 18:59 06:59 18:59 Intake Total 600 Balance 600 Intake: Oral 600 Other: # Voids 2 - Constitutional General appearance: Present: no acute distress - Respiratory Respiratory: bilateral: CTA - Cardiovascular Rhythm: regular Heart sounds: normal: S1, S2 - Labs CBC & Chem 7: 05/09/17 05:48 05/09/17 05:48 Labs: Abnormal Lab Results - Last 24 Hours (Table) 05/09/17 Range/Units 05:48 AST 63 H (17-59) U/L ALT 84 H (21-72) U/L Assessment and Plan Assessment: assessment #1 TIA #2 paroxysmal atrial fibrillation #3 hypertension #4 dyslipidemia Plan #1 continue the current dose of metoprolol #2 continue the oral anticoagulation with Eliquis. #3 severe underlying coronary artery disease needs to be ruled out. #4 obstructive sleep apnea to be ruled out as well #4 the patient might benefit also from the watchman device for atrial fibrillation. the patient can be discharged home.
[2017-05-09 10:43] VITALS: BP 111/63
[2017-05-09 11:06] VITALS: PULSE 72
--- NOTE | 2017-05-09 14:00 | P.DS ---
Providers Date of admission: 05/07/17 13:09 Expected date of discharge: 05/09/17 Attending physician: Anderson Jerez Consults: 05/07/17 13:10 Consult Physician Routine Consulting Provider: Fito Reeves Consult Reason/Comments: Chest pain Do you want consulting provider notified?: Yes Consult Physician Routine Consulting Provider: Nadia Hammer Consult Reason/Comments: TIA Do you want consulting provider notified?: Yes Primary care physician: Ml [facility] Course: 1. TIA with slurred speech: Now resolved. MRI of the brain showed no acute intracranial abnormality. There was no specific area of enhancement in the right cerebellar awaiting further comments from neurology computed tomography scan of the brain showed no acute changes. CTA of the head and neck showed no carotid stenosis and no aneurysm in the [place]. EKG showing a normal sinus rhythm. Currently on telemetry to monitor for any cardiac arrhythmias. Last echo was in January 2017 showing an EF of 50-55%. Mild left ventricle hypertrophy. Mild tricuspid regurgitation and mitral regurgitation. And trace to mild pulmonic regurgitation. The neurology interventional list is recommending to hold the Eliquis until MRI of the brain results are completed. Continue statin and continue Eliquis for anticoagulation and secondary stroke prevention 2. History of paroxysmal atrial fibrillation: Patient has had cardiac ablations. He is currently on Rythmol metoprolol and Eliquis at home. Cardiology consulted 3. History of Prior TIAs 4. Left sided chest pain. Now resolved. Awaiting last stress test report from cardiology office 5. Essential hypertension: Blood pressure stable resume lisinopril, metoprolol 6. Hyperlipidemia 7. COPD: With no acute exacerbation Patient Condition at Discharge: Stable Plan - Discharge Summary Discharge Rx Participant: No New Discharge Prescriptions: New Metoprolol Tartrate [Lopressor] 25 mg PO BID #60 tab Continue Dexlansoprazole [Dexilant] 60 mg PO QAM Tamsulosin [Flomax] 0.4 mg PO HS Apixaban [Eliquis] 5 mg PO BID #60 tab Gabapentin 1,600 mg PO BID Umeclidinium [place] [Incruse Ellipta] 1 puff INHALATION RT-DAILY Albuterol Inhaler [Ventolin Hfa Inhaler] 2 puff INHALATION RT-Q4H PRN PRN Reason: Shortness Of Breath Fluticasone/Vilanterol [Breo Ellipta 100-25 Mcg Inhaler] 1 puff INHALATION RT -DAILY Lisinopril [Zestril] 10 mg PO DAILY Propafenone [Rythmol] 150 mg PO TID Tadalafil [Cialis] 5 mg PO DAILY PRN PRN Reason: Per Protocol Sucralfate [Carafate] 1 gm PO BID Spironolactone 50 mg PO DAILY Nortriptyline [Pamelor] 100 mg PO HS Atorvastatin [Lipitor] 80 mg PO HS Discontinued Metoprolol Tartrate [Lopressor] 50 mg PO BID #60 tab Discharge Medication List Dexlansoprazole [Dexilant] 60 mg PO QAM 06/12/15 [History] Tamsulosin [Flomax] 0.4 mg PO HS 06/12/15 [History] Apixaban [Eliquis] 5 mg PO BID #60 tab 01/28/16 [Rx] Gabapentin 1,600 mg PO BID 03/18/16 [History] Albuterol Inhaler [Ventolin Hfa Inhaler] 2 puff INHALATION RT-Q4H PRN 01/30/17 [ History] Fluticasone/Vilanterol [Breo Ellipta 100-25 Mcg Inhaler] 1 puff INHALATION RT- DAILY 01/30/17 [History] Umeclidinium [place] [Incruse Ellipta] 1 puff INHALATION RT-DAILY 01/30/17 [ History] Atorvastatin [Lipitor] 80 mg PO HS 05/07/17 [History] Lisinopril [Zestril] 10 mg PO DAILY 05/07/17 [History] Nortriptyline [Pamelor] 100 mg PO HS 05/07/17 [History] Propafenone [Rythmol] 150 mg PO TID 05/07/17 [History] Spironolactone 50 mg PO DAILY 05/07/17 [History] Sucralfate [Carafate] 1 gm PO BID 05/07/17 [History] Tadalafil [Cialis] 5 mg PO DAILY PRN 05/07/17 [History] Metoprolol Tartrate [Lopressor] 25 mg PO BID #60 tab 05/09/17 [Rx] Follow up Appointment(s)/Referral(s): Ml Warren DO [Primary Care Provider] - 1-2 days Discharge Disposition: HOME SELF-CARE
== END 2017-05-09 14:29 | disposition home or self-care (01) | DRG 69 ==
LOC: EC 10:39 → 6SEL 13:09
PROVIDERS: ADMIT Internal Medicine; ATTEND Internal Medicine
DX: G45.9 Transient cerebral ischemic attack, unspecified (principal); I48.0 Paroxysmal atrial fibrillation; I48.2 Chronic atrial fibrillation; R40.2362 Coma scale, best motor response, obeys commands, at arrival to emergency department; R40.2142 Coma scale, eyes open, spontaneous, at arrival to emergency department; R40.2252 Coma scale, best verbal response, oriented, at arrival to emergency department; R29.703 NIHSS score 3; I08.8 Other rheumatic multiple valve diseases; E29.1 Testicular hypofunction; F41.9 Anxiety disorder, unspecified; J44.9 Chronic obstructive pulmonary disease, unspecified; K21.9 Gastro-esophageal reflux disease without esophagitis; M19.91 Primary osteoarthritis, unspecified site; E78.5 Hyperlipidemia, unspecified; N40.0 Benign prostatic hyperplasia without lower urinary tract symptoms; I10 Essential (primary) hypertension; M77.12 Lateral epicondylitis, left elbow; G89.29 Other chronic pain; M54.9 Dorsalgia, unspecified; M54.2 Cervicalgia; I83.90 Asymptomatic varicose veins of unspecified lower extremity; Z79.51 Long term (current) use of inhaled steroids; Z79.01 Long term (current) use of anticoagulants; Z79.899 Other long term (current) drug therapy; Z86.73 Personal history of transient ischemic attack (TIA), and cerebral infarction without residual deficits; Z90.49 Acquired absence of other specified parts of digestive tract; Z96.651 Presence of right artificial knee joint; Z95.2 Presence of prosthetic heart valve; Z98.1 Arthrodesis status; Z87.891 Personal history of nicotine dependence; Z82.49 Family history of ischemic heart disease and other diseases of the circulatory system
CPT/HCPCS: 36415; 70450; 70496; 70498; 70553; 71046; 80053; 80061; 82550; 82553; 84484; 84550; 85025; 85610; 85730; 93005; 94640; 94760; 99291

== ENCOUNTER → 2017-05-10 | Outpatient (CLI) | payer OTHER ==
--- NOTE | 2017-05-10 19:44 | CT ---
EXAMINATION TYPE: CT abdomen pelvis w con DATE OF EXAM: 05/10/2017 COMPARISON: 09/03/2016 HISTORY: Abd distention. CT DLP: 1250.7 mGycm Automated exposure control for dose reduction was used. TECHNIQUE: Helical acquisition of images was performed from the lung bases through the pelvis. CONTRAST: Performed with Oral Contrast and with IV Contrast, patient injected with 100ml mL of Isovue 300. FINDINGS: Lung bases are clear of consolidation. There is no pleural effusion. Heart size is normal. Liver and spleen appear normal. Bile ducts are not dilated. There is no sign of pancreatic mass. Gall bladder is not definitely seen. There is no adrenal mass. There is 1.7 cm cortical cyst on the upper pole right kidney. There is no h ydronephrosis. There is no retroperitoneal adenopathy. Appendix appears normal. There is no ascites. There are a few sigmoid diverticula. There is no sign of diverticulitis. I see no intestinal wall thi ckening. There are no dilated loops. The lumbar spine is intact. There is multilevel spondylosis in t he lumbar spine. There is a 4 mm calcified granuloma in the anterior liver. IMPRESSION: MILD SIGMOID DIVERTICULOSIS. NORMAL APPENDIX. SMALL RIGHT RENAL CORTICAL CYST. NO CHANGE COMPARED TO OLD EXAM. NO SIGN OF ACUTE ABDOMEN AND PELVIS. URINARY BLADDER IS LARGE AND IS CONSISTENT WITH SOME D EGREE OF BLADDER OUTLET OBSTRUCTION. URINARY BLADDER MEASURES 14 X 6.5 CM.
== END | disposition home or self-care (01) ==
LOC: RADCTMAIN 16:54
PROVIDERS: ATTEND Family Medicine
DX: K57.30 Diverticulosis of large intestine without perforation or abscess without bleeding (principal); N28.1 Cyst of kidney, acquired
CPT/HCPCS: 74177; Q9967

== ENCOUNTER 2017-05-13 11:21 | Day surgery (SDC) | payer OTHER ==
[2017-05-10 09:25] VITALS: BMI 28.8
[~2017-05-13 11:21] MED LIST: LACTATED RINGERS 1,000 ML IV SCH; SODIUM CHLORIDE 0.9% 1,000 ML IV SCH
[2017-05-13] MEDS ORDERED: fentaNYL (PF) 50 MCG/ML 5 ML AMP IVP STA (12:30)
[2017-05-13] MEDS ORDERED: MIDAZOLAM 2 MG/2 ML VIAL ONE (13:58)
[2017-05-13] MEDS ORDERED: SUCCINYLCHOLINE CHLORIDE 100 MG/5 ML SYR IV ONE (13:58)
[2017-05-13] MEDS ORDERED: ePHEDrine SULFATE/0.9% NACL/PF 50 MG/5 ML SYRINGE IV ONE (13:58)
[2017-05-13] MEDS ORDERED: IV FLUID CONTINUATION 1,000 ML IV ONE (13:58)
[2017-05-13] MEDS ORDERED: fentaNYL (PF) 50 MCG/ML 2 ML AMP ONE (13:58)
[2017-05-13] MEDS ORDERED: ROCURONIUM BROMIDE 10 MG/ML 10 ML VIAL IV ONE (13:58)
[2017-05-13] MEDS ORDERED: PHENYLEPHRINE-0.9% NACL SYG 1 MG/10 ML SYRINGE ONE (13:58)
[2017-05-13] MEDS ORDERED: HEPARIN SODIUM,PORCINE 5,000 UNIT/ML 1 ML VIAL ONE (13:58)
[2017-05-13] MEDS ORDERED: PROPOFOL 10 MG/ML 20 ML VIAL IV ONE (13:58)
[2017-05-13] MEDS ORDERED: ceFAZolin IN SWFI 2 GM/20 ML SYRINGE IVP ONE (14:00)
[2017-05-13] MEDS ORDERED: LIDOCAINE 2% INJ 20 MG/ML SQ ONE (14:51)
[2017-05-13] MEDS ORDERED: HEPARIN SODIUM (1,000 UNIT/ML) 1,000 UNIT in SODIUM CHLORIDE 0.9% 1,000 ML IRRIGATION ONE (14:53)
[2017-05-13] MEDS ORDERED: SODIUM CHLORIDE 0.9% 1,000 ML IV ONE (17:16)
[2017-05-13] MEDS ORDERED: ACETAMINOPHEN IV (For NPO) 1,000 MG in EMPTY BAG 1 BAG IVPB ONE (17:32)
[2017-05-13] MEDS ORDERED: ACETAMINOPHEN TAB 325 MG TAB PO PRN (17:32)
--- NOTE | 2017-05-13 18:13 | CE ---
CARDIAC ELECTROPHYSIOLOGY REPORT Mr. Soler is a 56-year-old male patient of Dr. Sanford who has a history of atrial flutter as well as atrial fibrillation. He was brought in for an atrial flutter ablation. The patient was brought to the EP lab in a fasting state. Written informed consent was obtained prior to the procedure. The procedure was performed under general anesthesia. Venous sheaths were placed in the right and left femoral veins, and via these mapping and ablation catheters were placed in the right heart. Sinus cycle length 724 milliseconds, RI interval 129 milliseconds, QRS 101 milliseconds, QT 389 milliseconds. The AH interval was 65 milliseconds, HV interval 54 milliseconds. Sinus node recovery times at 600, 500 and 400 milliseconds were 1079, 1108 and 1208 milliseconds. Corresponding corrected sinus node recovery times were normal. AV node Wenckebach block 350 milliseconds, VA Wenckebach block greater than 600 milliseconds. No evidence of slow pathway conduction. No delta waves. Atrial extrastimulation was performed and atrial ERP 600/250 milliseconds. Isuprel was used. AV node Wenckebach block was 360 milliseconds. VA Wenckebach block improved to 420 milliseconds. Atrial ERP 400/370 milliseconds. Intracardiac echocardiography was performed. No intracardiac masses were noted. No pericardial effusion was noted. Three-dimensional mapping was performed. Cavotricuspid line of block was made with RF energy using an irrigated-tip catheter while intubated. This line was completed. Non-capture was documented along the line. Split potentials of 97 milliseconds were noted uniformly along the line with CS pacing. Bidirectional block was proven across the line. The patient tolerated the procedure well without any acute complications. He was extubated and transferred to the observation unit/telemetry. IMPRESSION: Successful atrial flutter ablation. PLAN: Continue Eliquis lifelong. Reduce the dose of propafenone to 150 mg twice daily. In 3 months this can be discontinued. Follow up with Dr. Sanford in a week. MMODL / IJN: [id number] /
[2017-05-13] MEDS: GABAPENTIN 400 MG CAP PO SCH (20:24)
[2017-05-13] MEDS: APIXABAN 5 MG TAB PO SCH (20:24)
[2017-05-13] MEDS: METOPROLOL TARTRATE 25 MG TAB PO SCH (20:25)
[2017-05-13] MEDS ORDERED: NORTRIPTYLINE 25 MG CAP PO SCH (21:00)
[2017-05-13] MEDS ORDERED: TAMSULOSIN 0.4 MG CAP.ER.24H PO SCH (21:00)
[2017-05-13] MEDS ORDERED: ATORVASTATIN 80 MG TAB PO SCH (21:00)
[2017-05-13] MEDS: PROPAFENONE 150 MG TAB PO SCH (21:12)
[2017-05-13] MEDS: HYDROcodone/APAP 5-325MG 1 EACH TAB PO PRN (21:13)
[2017-05-13 22:49] VITALS: RESP 18
[2017-05-14] MEDS: HYDROcodone/APAP 5-325MG 1 EACH TAB PO PRN ×2 (02:14→08:55)
[2017-05-14] MEDS ORDERED: PANTOPRAZOLE 40 MG TABLET PO SCH (07:30)
[2017-05-14 07:44] VITALS: BP 116/68; PULSE 74; TEMP 97.9
[2017-05-14] MEDS ORDERED: SYMBICORT 80-4.5 MCG INHALER INHALATION SCH (08:00)
--- NOTE | 2017-05-14 08:49 | P.DS ---
Providers Attending physician: Heladio Vasquez Primary care physician: [facility] Course: Patient is doing well. He has been up and about. No chest pain no dizziness lightheadedness no palpitations. Groin is healing well. No bleeding issues overnight. Afebrile 97.9F, pulse rate in the 70s, respirations normal, blood pressure 123/ 80 mmHg Breath sounds are clear no rhonchi no crackles Heart sounds S1-S2 normal no murmurs or gallops no rub Extremities are warm no edema Minimal swelling of about a centimeter in the left groin no tenderness Impression Atrial flutter status post successful ablation of bidirectional block Persistent symptomatic atrial fibrillation status post cryoablation in the past Hypertension Aortic root at the upper limits of normal History of possible TIA Plan Continue anticoagulation Follow-up with Dr. Lucero in 1 week Reduce Rythmol to 150 mg twice daily In view of his recurrent neurologic symptoms despite appropriate dosing of ELIQUIS, a SANTOS (drug refractory thrombus) and assessment of carotid arteries should be considered while on ELIQUIS Patient Condition at Discharge: Stable Plan - Discharge Summary Discharge Rx Participant: No New Discharge Prescriptions: Continue Dexlansoprazole [Dexilant] 60 mg PO QAM Tamsulosin [Flomax] 0.4 mg PO HS Apixaban [Eliquis] 5 mg PO BID #60 tab Gabapentin 1,600 mg PO BID Umeclidinium [place] [Incruse Ellipta] 1 puff INHALATION RT-DAILY Albuterol Inhaler [Ventolin Hfa Inhaler] 2 puff INHALATION RT-Q4H PRN PRN Reason: Shortness Of Breath Fluticasone/Vilanterol [Breo Ellipta 100-25 Mcg Inhaler] 1 puff INHALATION RT -DAILY Lisinopril [Zestril] 10 mg PO DAILY Propafenone [Rythmol] 150 mg PO TID Sucralfate [Carafate] 1 gm PO BID Spironolactone 50 mg PO DAILY Nortriptyline [Pamelor] 100 mg PO HS Atorvastatin [Lipitor] 80 mg PO HS Metoprolol Tartrate [Lopressor] 25 mg PO BID #60 tab Discharge Medication List Dexlansoprazole [Dexilant] 60 mg PO QAM 06/12/15 [History] Tamsulosin [Flomax] 0.4 mg PO HS 06/12/15 [History] Apixaban [Eliquis] 5 mg PO BID #60 tab 01/28/16 [Rx] Gabapentin 1,600 mg PO BID 03/18/16 [History] Albuterol Inhaler [Ventolin Hfa Inhaler] 2 puff INHALATION RT-Q4H PRN 01/30/17 [ History] Fluticasone/Vilanterol [Breo Ellipta 100-25 Mcg Inhaler] 1 puff INHALATION RT- DAILY 01/30/17 [History] Umeclidinium [place] [Incruse Ellipta] 1 puff INHALATION RT-DAILY 01/30/17 [ History] Atorvastatin [Lipitor] 80 mg PO HS 05/07/17 [History] Lisinopril [Zestril] 10 mg PO DAILY 05/07/17 [History] Nortriptyline [Pamelor] 100 mg PO HS 05/07/17 [History] Propafenone [Rythmol] 150 mg PO TID 05/07/17 [History] Spironolactone 50 mg PO DAILY 05/07/17 [History] Sucralfate [Carafate] 1 gm PO BID 05/07/17 [History] Metoprolol Tartrate [Lopressor] 25 mg PO BID #60 tab 05/09/17 [Rx] Follow up Appointment(s)/Referral(s): Samson Sanford MD [STAFF PHYSICIAN] - 1 Week Activity/Diet/Wound Care/Special Instructions: Post EP study - Ablation instructions 1. Keep access sites dry for 2 days. 2. No heavy lifting or straining for 2 days. 3. Avoid bending the hips repeatedly for 2 days. 4. You may go up and down stairs slowly Call if the following is noted 1. Bleeding, increasing swelling or pain at the access sites. 2. Increasing chest discomfort, especially upon taking a deep breath. 3. Increasing shortness of breath, at rest or with exertion. 4. Undue cough / phlegm 5. Difficulty or pain while swallowing. 6. Pain or change in color in the extremities. 7. Fever, chills, rigors. 8. Increasing headache or neurologic symptoms. 9. Dizziness, fainting, palpitations Reduce propafenone to 150 mg twice daily Continue all other medications as before and do not stop ELIQUIs Discharge Disposition: HOME SELF-CARE
[2017-05-14] MEDS: GABAPENTIN 400 MG CAP PO SCH (08:55)
[2017-05-14] MEDS: PROPAFENONE 150 MG TAB PO SCH (08:55)
[2017-05-14] MEDS: APIXABAN 5 MG TAB PO SCH (08:55)
[2017-05-14] MEDS: METOPROLOL TARTRATE 25 MG TAB PO SCH (08:55)
[2017-05-14] MEDS ORDERED: SPIRONOLACTONE 25 MG TAB PO SCH (09:00)
[2017-05-14] MEDS ORDERED: LISINOPRIL 10 MG TAB PO SCH (09:00)
== END 2017-05-14 11:30 | disposition home or self-care (01) ==
LOC: CATHEP 11:21 → 3OBS 17:33 → CATHEP 05-14 11:30
PROVIDERS: ATTEND Internal Medicine Clinical Cardiac Electrophysiology
DX: I48.92 Unspecified atrial flutter (principal); I48.1 Persistent atrial fibrillation; I10 Essential (primary) hypertension; J44.9 Chronic obstructive pulmonary disease, unspecified; N40.0 Benign prostatic hyperplasia without lower urinary tract symptoms; F39 Unspecified mood [affective] disorder; K21.9 Gastro-esophageal reflux disease without esophagitis; Z86.73 Personal history of transient ischemic attack (TIA), and cerebral infarction without residual deficits; Z86.718 Personal history of other venous thrombosis and embolism; Z82.49 Family history of ischemic heart disease and other diseases of the circulatory system; Z79.01 Long term (current) use of anticoagulants; Z79.51 Long term (current) use of inhaled steroids; Z79.899 Other long term (current) drug therapy; Z87.891 Personal history of nicotine dependence
CPT/HCPCS: 94640; 93662; 93613; 93653; C1894; C1769 ×2; C1893; C1730; C1759; C1732; J2001; J3010; J1644; J0690

== ENCOUNTER 2017-06-28 10:49 | Inpatient (IN) | payer OTHER ==
[2017-06-28] MEDS ORDERED: SODIUM CHLORIDE 0.9% 500 ML IV STA (11:05)
[2017-06-28] MEDS ORDERED: DILTIAZEM 50 MG in SODIUM CHLORIDE 0.9% 40 ML IV ONE (11:14)
[2017-06-28] MEDS ORDERED: DILTIAZEM 5 MG/1 ML (25ML VIAL) IV STA (11:14)
[2017-06-28] MEDS ORDERED: ACETAMINOPHEN TAB 500 MG TAB PO STA (11:15)
--- NOTE | 2017-06-28 11:18 | ED ---
General Adult HPI - General Chief complaint: Arrhythmia/Palpitations Stated complaint: CHEST PAIN, AFIB Time Seen by Provider: 06/28/17 10:57 Source: patient, RN notes reviewed, old records reviewed Mode of arrival: wheelchair Limitations: no limitations - History of Present Illness Initial comments: 57-year-old male history of atrial fibrillation presents with palpitations and left-sided chest pain since Wednesday which is 3 days ago. Patient has had 2 cardiac ablations in the past. He is currently on Eliquis and metoprolol. Patient's chest pain has been constant dull pain nonradiating. No nausea or diaphoresis. Patient has no known history of CAD, he has never had a heart catheterization. Patient did take his heart rate at work prior to presenting to the emergency department and noted that he was in the 150s. He called his orthopaedic physician assistant who sent him to the emergency department for evaluation. - Related Data Home Medications Medication Instructions Recorded Confirmed Dexlansoprazole [Dexilant] 60 mg PO QA 06/12/15 06/28/17 Tamsulosin [Flomax] 0.4 mg PO HS 06/12/15 06/28/17 Gabapentin 1,600 mg PO BID 03/18/16 06/28/17 Albuterol Inhaler [Ventolin Hfa 2 puff INHALATION RT-Q4H PRN 01/30/17 06/28/17 Inhaler] Fluticasone/Vilanterol [Breo 1 puff INHALATION RT-DAILY 01/30/17 06/28/17 Ellipta 100-25 Mcg Inhaler] Umeclidinium [place] [Incruse 1 puff INHALATION RT-DAILY 01/30/17 06/28/17 Ellipta] Atorvastatin [Lipitor] 80 mg PO HS 05/07/17 06/28/17 Lisinopril [Zestril] 10 mg PO DAILY 05/07/17 06/28/17 Nortriptyline [Pamelor] 100 mg PO HS 05/07/17 06/28/17 Propafenone [Rythmol] 150 mg PO TID 05/07/17 06/28/17 Spironolactone 50 mg PO DAILY 05/07/17 06/28/17 Sucralfate [Carafate] 1 gm PO BID 05/07/17 06/28/17 Previous Rx's Medication Instructions Recorded Apixaban [Eliquis] 5 mg PO BID #60 tab 01/28/16 Metoprolol Tartrate [Lopressor] 25 mg PO BID #60 tab 05/09/17 Allergies Allergy/AdvReac Type Severity Reaction Status Date / Time No Known Allergies Allergy Verified 06/28/17 11:22 Review of Systems ROS Statement: Those systems with pertinent positive or pertinent negative responses have been documented in the HPI. ROS Other: All systems not noted in ROS Statement are negative. Past Medical History Past Medical History: Atrial Fibrillation, COPD, CVA/TIA, GERD/Reflux, Hypertension, Osteoarthritis (OA), Prostate Disorder Additional Past Medical History / Comment(s): See Dr Vasquez's H&P, varicose veins, ENLARGED PROSTATE, testicular hypofunction, per pt had stroke 2016 - had diff with speech initially resolved but since has had episodic bouts of difficulty with speech and swallowing. History of Any Multi-Drug Resistant Organisms: None Reported Past Surgical History: Back Surgery, Cholecystectomy, Joint Replacement, Tonsillectomy Additional Past Surgical History / Comment(s): heart valve sx(OPEN HEART) at age 3, neck fusion ,uvula removed,rt knee replaced. ep study, cardiac ablation Past Anesthesia/Blood Transfusion Reactions: No Reported Reaction Past Psychological History: No Psychological Hx Reported Smoking Status: Former smoker Past Alcohol Use History: None Reported, Occasional Past Drug Use History: None Reported - Past Family History Mother Family Medical History: No Reported History Additional Family Medical History / Comment(s): mom from [place] at age 48 Father Family Medical History: Myocardial Infarction (MS) Additional Family Medical History / Comment(s): from [place] at age 54 General Exam Limitations: no limitations General appearance: alert, in no apparent distress Head exam: Present: atraumatic, normocephalic Eye exam: Present: normal appearance. Absent: PERRL, EOMI ENT exam: Present: normal exam Neck exam: Present: normal inspection. Absent: tenderness, meningismus Respiratory exam: Present: normal lung sounds bilaterally. Absent: respiratory distress, wheezes Cardiovascular Exam: Present: tachycardia, irregular rhythm GI/Abdominal exam: Present: soft. Absent: distended, tenderness, guarding Extremities exam: Present: normal inspection, normal capillary refill. Absent: pedal edema, joint swelling Neurological exam: Present: alert, oriented X3, CN II-XII intact. Absent: motor sensory deficit Psychiatric exam: Present: normal affect, normal mood Skin exam: Present: warm, dry, intact, normal color. Absent: cyanosis, diaphoretic Course Vital Signs 06/28/17 06/28/17 06/28/17 10:53 11:14 12:05 Temperature 97.0 F L Pulse Rate 125 H 125 H 105 H Respiratory 20 18 18 Rate Blood Pressure 97/64 118/57 101/60 O2 Sat by Pulse 97 97 94 L Oximetry 06/28/17 12:59 Temperature Pulse Rate 92 Respiratory 20 Rate Blood Pressure 96/66 O2 Sat by Pulse Oximetry EKG Findings - EKG Comments: EKG Findings:: EKG, atrial fibrillation with RVR, left axis deviation, no ST segment elevation, rate of 127, QRS duration 84, QTC 467 Medical Decision Making - Medical Decision Making 57-year-old male presenting with palpitations and chest pain. Patient has history of atrial fibrillation status post ablation. He is found to be in A. fib with RVR rate between 120s and 150s. He is given normal saline bolus started on a Cardizem infusion. He is already anticoagulated. Laboratory studies reveal normal white blood cell count, stable hemoglobin, normal electrolytes. Initial troponin is negative. Chest x-ray negative for acute disease. Patient will be admitted for further rate control, cardiology evaluation, and serial cardiac enzymes are regarding his chest pain. - Lab Data Result diagrams: 06/28/17 11:11 06/28/17 11:11 Lab Results 06/28/17 06/28/17 06/28/17 Range/Units 11:11 11:11 11:11 WBC 7.2 (3.8-10.6) k/uL RBC 5.29 (4.30-5.90) m/uL Hgb 16.4 (13.0-17.5) gm/dL Hct 47.2 (39.0-53.0) % MCV 89.3 (80.0-100.0) fL MCH 31.0 (25.0-35.0) pg MCHC 34.7 (31.0-37.0) g/dL RDW 13.7 (11.5-15.5) % Plt Count 206 (150-450) k/uL Neutrophils % 63 % Lymphocytes % 25 % Monocytes % 6 % Eosinophils % 4 % Basophils % 1 % Neutrophils # 4.6 (1.3-7.7) k/uL Lymphocytes # 1.8 (1.0-4.8) k/uL Monocytes # 0.4 (0-1.0) k/uL Eosinophils # 0.3 (0-0.7) k/uL Basophils # 0.1 (0-0.2) k/uL PT (9.0-12.0) sec INR (<1.2) APTT (22.0-30.0) sec Sodium 140 (137-145) mmol/L Potassium 4.7 (3.5-5.1) mmol/L Chloride 102 (98-107) mmol/L Carbon Dioxide 25 (22-30) mmol/L Anion Gap 13 mmol/L BUN 14 (9-20) mg/dL Creatinine 1.00 (0.66-1.25) mg/dL Est GFR (CKD-EPI)AfAm >90 (>60 ml/min/1.73 sqM) Est GFR (CKD-EPI)NonAf 82 (>60 ml/min/1.73 sqM) Glucose 125 H (74-99) mg/dL Calcium 9.9 (8.4-10.2) mg/dL Magnesium 1.9 (1.6-2.3) mg/dL Total Bilirubin 1.0 (0.2-1.3) mg/dL AST 29 (17-59) U/L ALT 50 (21-72) U/L Alkaline Phosphatase 121 (38-126) U/L Total Creatine Kinase 72 (55-170) U/L CK-MB (CK-2) 0.5 (0.0-2.4) ng/mL CK-MB (CK-2) Rel Index 0.7 Troponin I <0.012 (0.000-0.034) ng/mL Total Protein 7.0 (6.3-8.2) g/dL Albumin 4.5 (3.5-5.0) g/dL 06/28/17 Range/Units 11:11 WBC (3.8-10.6) k/uL RBC (4.30-5.90) m/uL Hgb (13.0-17.5) gm/dL Hct (39.0-53.0) % MCV (80.0-100.0) fL MCH (25.0-35.0) pg MCHC (31.0-37.0) g/dL RDW (11.5-15.5) % Plt Count (150-450) k/uL Neutrophils % % Lymphocytes % % Monocytes % % Eosinophils % % Basophils % % Neutrophils # (1.3-7.7) k/uL Lymphocytes # (1.0-4.8) k/uL Monocytes # (0-1.0) k/uL Eosinophils # (0-0.7) k/uL Basophils # (0-0.2) k/uL PT 9.8 (9.0-12.0) sec INR 1.0 (<1.2) APTT 25.8 (22.0-30.0) sec Sodium (137-145) mmol/L Potassium (3.5-5.1) mmol/L Chloride (98-107) mmol/L Carbon Dioxide (22-30) mmol/L Anion Gap mmol/L BUN (9-20) mg/dL Creatinine (0.66-1.25) mg/dL Est GFR (CKD-EPI)AfAm (>60 ml/min/1.73 sqM) Est GFR (CKD-EPI)NonAf (>60 ml/min/1.73 sqM) Glucose (74-99) mg/dL Calcium (8.4-10.2) mg/dL Magnesium (1.6-2.3) mg/dL Total Bilirubin (0.2-1.3) mg/dL AST (17-59) U/L ALT (21-72) U/L Alkaline Phosphatase (38-126) U/L Total Creatine Kinase (55-170) U/L CK-MB (CK-2) (0.0-2.4) ng/mL CK-MB (CK-2) Rel Index Troponin I (0.000-0.034) ng/mL Total Protein (6.3-8.2) g/dL Albumin (3.5-5.0) g/dL Critical Care Time Critical Care Time: Yes Total Critical Care Time: 35 Disposition Clinical Impression: Atrial fibrillation with RVR, Chest pain Disposition: ADMITTED IP TO THIS HOSP Condition: Stable Is patient prescribed a controlled substance at d/c from ED?: No Referrals: Ml Warren DO [Primary Care Provider] - 1-2 days Decision to Admit Reason: Admit from EC Decision Date: 06/28/17 Decision Time: 13:17
[2017-06-28 11:22] LABS: Basophils # (A) 0.1 k/uL (0-0.2); Basophils % (A) 1 %; Eosinophils # (A) 0.3 k/uL (0-0.7); Eosinophils % (A) 4 %; HCT 47.2 % (39.0-53.0); HGB 16.4 gm/dL (13.0-17.5); Lymphocytes # (A) 1.8 k/uL (1.0-4.8); Lymphocytes % (A) 25 %; MCHC 34.7 g/dL (31.0-37.0); MCV 89.3 fL (80.0-100.0); Mean Platelet Volume 6.9; Monocytes # (A) 0.4 k/uL (0-1.0); Monocytes % (A) 6 %; Neutrophils # (A) 4.6 k/uL (1.3-7.7); Neutrophils % (A) 63 %; Platelet Count 206 k/uL (150-450); RBC 5.29 m/uL (4.30-5.90); RDW 13.7 % (11.5-15.5); WBC 7.2 k/uL (3.8-10.6)
[2017-06-28 11:33] LABS: Partial Thromboplastin Time 25.8 sec (22.0-30.0); Prothrombin Time 9.8 sec (9.0-12.0)
[2017-06-28 11:35] LABS: ALT 50 U/L (21-72); AST 29 U/L (17-59); Albumin 4.5 g/dL (3.5-5.0); Alkaline Phosphatase 121 U/L (38-126); Anion Gap 13 mmol/L; Blood Urea Nitrogen 14 mg/dL (9-20); Calcium 9.9 mg/dL (8.4-10.2); Carbon Dioxide 25 mmol/L (22-30); Chloride 102 mmol/L (98-107); Glucose 125 mg/dL (74-99); Magnesium 1.9 mg/dL (1.6-2.3); Potassium 4.7 mmol/L (3.5-5.1); Sodium 140 mmol/L (137-145)
--- NOTE | 2017-06-28 11:36 | XR ---
EXAMINATION TYPE: XR chest 2V DATE OF EXAM: 06/28/2017 COMPARISON: 01/29/2017 HISTORY: Shortness of breath TECHNIQUE: Frontal and lateral views of the chest are obtained. FINDINGS: Scattered senescent parenchymal changes noted. No evidence for infiltrate. No evidence for atelectasis. Heart size is stable. Mediastinal structures are stable and grossly unremarkable. No evidence for hilar prominence. Degenerative changes dorsal spine. IMPRESSION: 1. No evidence for acute pulmonary disease.
[2017-06-28 11:42] LABS: Creatine Kinase 72 U/L (55-170)
[2017-06-28 11:55] LABS: Creatine Kinase MB 0.5 ng/mL (0.0-2.4); Troponin I <0.012 ng/mL (0.000-0.034)
[2017-06-28] MEDS ORDERED: NALOXONE 0.4 MG/ML 1 ML VIAL IV PRN (13:17)
[2017-06-28] MEDS ORDERED: ALBUTEROL NEBULIZED 2.5 MG/3 ML INHALATION PRN (13:55)
--- NOTE | 2017-06-28 14:08 | P.HPIM ---
History of Present Illness H&P Date: 06/28/17 Chief Complaint: Chest pain and palpitations This is a 57-year-old male, patient of Dr. Warren. Patient has a past medical history of atrial fibrillation which she is required 2 cardiac ablations. Last cardiac ablation was May 2017. Also at that time he had adjustments made to his rate control medications. Patient had been doing well. And over the last 3 days he started to feel heart palpitations and chest pains. He reports that he felt like his heart was going to pound out of his chest. It happened again this morning he reported a heart rate in the 150s. [facility] and was told to present to the emergency room. EKG had shown atrial fibrillation with rapid ventricular response heart rate of 127. Patient was placed on a Cardizem drip. He is already on Eliquis for anticoagulation. He also takes Rythmol and metoprolol at home. Patient reports taking his medications as prescribed. He reports that he did not miss any doses. Patient will be evaluated by cardiology. First troponin is negative. Chest x-ray negative. Patient denies any cough, fever or chills sweats, nausea or vomiting , bowel movement changes or urinary symptoms. Review of Systems Please refer to HPI otherwise unremarkable Past Medical History Past Medical History: Atrial Fibrillation, COPD, CVA/TIA, GERD/Reflux, Hypertension, Osteoarthritis (OA), Prostate Disorder Additional Past Medical History / Comment(s): See Dr Vasquez's H&P, varicose veins, ENLARGED PROSTATE, testicular hypofunction, per pt had stroke 2016 - had diff with speech initially resolved but since has had episodic bouts of difficulty with speech and swallowing. History of Any Multi-Drug Resistant Organisms: None Reported Past Surgical History: Back Surgery, Cholecystectomy, Joint Replacement, Tonsillectomy Additional Past Surgical History / Comment(s): heart valve sx(OPEN HEART) at age 3, neck fusion ,uvula removed,rt knee replaced. ep study, cardiac ablation Past Anesthesia/Blood Transfusion Reactions: No Reported Reaction Past Psychological History: No Psychological Hx Reported Smoking Status: Former smoker Past Alcohol Use History: None Reported, Occasional Past Drug Use History: None Reported - Past Family History Mother Family Medical History: No Reported History Additional Family Medical History / Comment(s): mom from [place] at age 48 Father Family Medical History: Myocardial Infarction ([place]) Additional Family Medical History / Comment(s): from [place] at age 54 Medications and Allergies Home Medications Medication Instructions Recorded Confirmed Type Dexlansoprazole [Dexilant] 60 mg PO QAM 06/12/15 06/28/17 History Tamsulosin [Flomax] 0.4 mg PO HS 06/12/15 06/28/17 History Apixaban [Eliquis] 5 mg PO BID #60 tab 01/28/16 06/28/17 Rx Gabapentin 1,600 mg PO BID 03/18/16 06/28/17 History Albuterol Inhaler [Ventolin Hfa 2 puff INHALATION RT-Q4H PRN 01/30/17 06/28/17 History Inhaler] Fluticasone/Vilanterol [Breo 1 puff INHALATION RT-DAILY 01/30/17 06/28/17 History Ellipta 100-25 Mcg Inhaler] Umeclidinium [place] [Incruse 1 puff INHALATION RT-DAILY 01/30/17 06/28/17 History Ellipta] Atorvastatin [Lipitor] 80 mg PO HS 05/07/17 06/28/17 History Lisinopril [Zestril] 10 mg PO DAILY 05/07/17 06/28/17 History Nortriptyline [Pamelor] 100 mg PO HS 05/07/17 06/28/17 History Propafenone [Rythmol] 150 mg PO TID 05/07/17 06/28/17 History Spironolactone 50 mg PO DAILY 05/07/17 06/28/17 History Sucralfate [Carafate] 1 gm PO BID 05/07/17 06/28/17 History Metoprolol Tartrate [Lopressor] 25 mg PO BID #60 tab 05/09/17 06/28/17 Rx Allergies Allergy/AdvReac Type Severity Reaction Status Date / Time No Known Allergies Allergy Verified 06/28/17 11:22 Physical Exam Vitals: Vital Signs Temp Pulse Resp BP Pulse Ox 06/28/17 13:37 100 18 94/69 97 06/28/17 12:59 92 20 96/66 06/28/17 12:05 105 H 18 101/60 94 L 06/28/17 11:14 125 H 18 118/57 97 06/28/17 10:53 97.0 F L 125 H 20 97/64 97 Intake and Output 06/27/17 06/28/17 06/28/17 22:59 06:59 14:59 Other: Weight 95.254 kg Head normocephalic Neck supple Lungs clear to auscultation bilaterally no wheezing or crackles Heart irregular Abdomen is soft nontender nondistended positive bowel sounds no hepatosplenomegaly Extremities no edema Neuro alert and orientated to 3 Results CBC & Chem 7: 06/28/17 11:11 06/28/17 11:11 Labs: Abnormal Lab Results - Last 24 Hours (Table) 06/28/17 Range/Units 11:11 Glucose 125 H (74-99) mg/dL Assessment and Plan Assessment: 1. Chest pain with shortness of breath likely secondary to patient's atrial fibrillation with rapid ventricular response. First troponin is negative. Cardiology will be consulted. Patient has never had a heart catheterization 2. Atrial fibrillation with rapid ventricular response: Patient is been placed on a Cardizem drip. Anticoagulated with Eliquis. Cardiology will be consulted. Patient has had 2 cardiac ablations in the past, most recent May 2017 3. History of persistent atrial fibrillation: Takes Rythmol and metoprolol at home 4. History of TIAs and CVA 5. Essential hypertension: Patient having some hypotension. We'll place parameters around the lisinopril to hold for systolic blood pressure less than 120 6. History of COPD: Stable no evidence of exacerbation. Continue with inhalers GI prophylaxis Protonix and DVT prophylaxis Eliquis Time with Patient: Greater than 30 (Greater than 60% of the total time spent in counseling and coordination of care. I performed an examination of the patient and discussed their management with the physician Fulfillment Mail Clerk. I have reviewed the Physician Fulfillment Mail Clerk's notes and agree with the documented findings and plan of care)
[2017-06-28 15:09] VITALS: BMI 26.9
[2017-06-28] MEDS: PROPAFENONE 150 MG TAB PO SCH ×2 (15:31→20:11)
[2017-06-28] MEDS: SUCRALFATE 1 GM TAB PO SCH (15:32)
[2017-06-28] MEDS: MORPHINE SULFATE 4 MG/ML SYRINGE IV PRN ×3 (15:44→22:22)
[2017-06-28] MEDS: HYDROcodone/APAP 5-325MG 1 EACH TAB PO PRN ×2 (18:02→20:09)
[2017-06-28 18:05] LABS: Creatine Kinase 49 U/L (55-170)
[2017-06-28 18:20] LABS: Creatine Kinase MB 0.4 ng/mL (0.0-2.4); Troponin I <0.012 ng/mL (0.000-0.034)
[2017-06-28] MEDS: APIXABAN 5 MG TAB PO SCH (20:10)
[2017-06-28] MEDS: GABAPENTIN 400 MG CAP PO SCH (20:10)
[2017-06-28] MEDS: METOPROLOL TARTRATE 25 MG TAB PO SCH (20:10)
[2017-06-28] MEDS: ATORVASTATIN 80 MG TAB PO SCH (20:10)
[2017-06-28] MEDS: NORTRIPTYLINE 25 MG CAP PO SCH ×2 (20:11→23:39)
[2017-06-28] MEDS: TAMSULOSIN 0.4 MG CAP.ER.24H PO SCH (20:11)
[2017-06-29 00:15] LABS: Creatine Kinase 49 U/L (55-170)
[2017-06-29 00:28] LABS: Creatine Kinase MB 0.4 ng/mL (0.0-2.4); Troponin I <0.012 ng/mL (0.000-0.034)
[2017-06-29] MEDS: MORPHINE SULFATE 4 MG/ML SYRINGE IV PRN ×5 (03:35→21:49)
[2017-06-29] MEDS: PANTOPRAZOLE 40 MG TABLET PO SCH (06:33)
[2017-06-29] MEDS: SUCRALFATE 1 GM TAB PO SCH ×2 (06:33→17:51)
[2017-06-29] MEDS: HYDROcodone/APAP 5-325MG 1 EACH TAB PO PRN ×3 (06:35→19:25)
[2017-06-29 07:27] LABS: Basophils % (A) 1 %; Eosinophils # (A) 0.2 k/uL (0-0.7); Eosinophils % (A) 4 %; HGB 13.3 gm/dL (13.0-17.5); Lymphocytes # (A) 1.8 k/uL (1.0-4.8); Lymphocytes % (A) 33 %; MCH 31.5 pg (25.0-35.0); MCV 89.9 fL (80.0-100.0); Mean Platelet Volume 7.2; Monocytes # (A) 0.3 k/uL (0-1.0); Monocytes % (A) 6 %; Neutrophils # (A) 2.9 k/uL (1.3-7.7); Neutrophils % (A) 54 %; Platelet Count 173 k/uL (150-450); RBC 4.23 m/uL (4.30-5.90); RDW 13.8 % (11.5-15.5); WBC 5.4 k/uL (3.8-10.6)
[2017-06-29 07:49] LABS: ALT 41 U/L (21-72); AST 22 U/L (17-59); Albumin 3.4 g/dL (3.5-5.0); Alkaline Phosphatase 87 U/L (38-126); Anion Gap 10 mmol/L; Blood Urea Nitrogen 17 mg/dL (9-20); Calcium 8.6 mg/dL (8.4-10.2); Carbon Dioxide 25 mmol/L (22-30); Chloride 104 mmol/L (98-107); Glucose 90 mg/dL (74-99); Potassium 4.4 mmol/L (3.5-5.1); Sodium 139 mmol/L (137-145); Total Bilirubin 0.9 mg/dL (0.2-1.3); Total Protein 5.5 g/dL (6.3-8.2)
[2017-06-29] MEDS: SYMBICORT 80-4.5 MCG INHALER INHALATION SCH ×2 (07:57→20:57)
[2017-06-29] MEDS: IPRATROPIUM 0.5 MG/2.5 ML NEBU INHALATION SCH ×4 (07:58→20:57)
--- NOTE | 2017-06-29 09:05 | P.CRDCN ---
History of Present Illness Consult date: 06/29/17 Requesting physician: Anderson Jerez Consult reason: atrial fibrillation Chief complaint: Chest pain History of present illness: This is a pleasant 57-year-old gentleman who follows regularly with Dr. Lucero in the office. He has a known history of hypertension, family history of premature coronary artery disease, prior TIA, history of atrial fibrillation , atrial flutter, most recently patient underwent a flutter ablation with Dr. Vasquez in May. He is on Eliquis for anticoagulation. Patient presents to the hospital on this occasion with symptoms of chest discomfort, he states he initially had a symptoms a couple of days ago, he knew he was in atrial fibrillation, symptoms subsided, he states then that he went to work and again developed the same discomfort in the chest and felt his heart racing fast. For this reason he came to the emergency room for further evaluation. His EKG on arrival here showed atrial fibrillation with a rapid ventricular response, patient was initiated on IV Cardizem in the emergency room and has since converted to normal sinus rhythm. Chest x-ray did not reveal any evidence for acute pulmonary disease. Blood pressure 98/56, heart rate currently in the 70s , 95% on room air. White blood cell count 5.4, hemoglobin 13.3, platelet count 173. Sodium 139, potassium 4.4, BUN 17, creatinine 1.0. Magnesium 1.9. Troponins are negative 3. At the time of my examination this morning, patient is currently chest pain-free. I had a lengthy discussion with the patient and his who is at his bedside, they stated that Dr. Sanford has been scheduled as an outpatient for a stress test, he has had stress tests in the past and is inquiring as to whether or not he can directly have a heart cath. He is concerned about his family history and his risk factors, he states that he has discussed cardiac catheterization with Dr. Sanford and Dr. Vasquez in the past who according to the patient had not been opposed to him having a heart cath. Past Medical History Past Medical History: Atrial Fibrillation, COPD, CVA/TIA, GERD/Reflux, Hypertension, Osteoarthritis (OA), Prostate Disorder Additional Past Medical History / Comment(s): See Dr Vasquez's H&P, varicose veins, ENLARGED PROSTATE, testicular hypofunction, per pt had stroke 2016 - had diff with speech initially resolved but since has had episodic bouts of difficulty with speech and swallowing. History of Any Multi-Drug Resistant Organisms: None Reported Past Surgical History: Back Surgery, Cholecystectomy, Joint Replacement, Tonsillectomy Additional Past Surgical History / Comment(s): heart valve sx(OPEN HEART) at age 3, neck fusion ,uvula removed,rt knee replaced. ep study, cardiac ablation Past Anesthesia/Blood Transfusion Reactions: No Reported Reaction Past Psychological History: No Psychological Hx Reported Smoking Status: Former smoker Past Alcohol Use History: None Reported, Occasional Past Drug Use History: None Reported - Past Family History Mother Family Medical History: No Reported History Additional Family Medical History / Comment(s): mom from [place] at age 48 Father Family Medical History: Myocardial Infarction ([place]) Additional Family Medical History / Comment(s): from [place] at age 54 Medications and Allergies Home Medications Medication Instructions Recorded Confirmed Type Dexlansoprazole [Dexilant] 60 mg PO QAM 06/12/15 06/28/17 History Tamsulosin [Flomax] 0.4 mg PO HS 06/12/15 06/28/17 History Apixaban [Eliquis] 5 mg PO BID #60 tab 01/28/16 06/28/17 Rx Gabapentin 1,600 mg PO BID 03/18/16 06/28/17 History Albuterol Inhaler [Ventolin Hfa 2 puff INHALATION RT-Q4H PRN 01/30/17 06/28/17 History Inhaler] Fluticasone/Vilanterol [Breo 1 puff INHALATION RT-DAILY 01/30/17 06/28/17 History Ellipta 100-25 Mcg Inhaler] Umeclidinium [place] [Incruse 1 puff INHALATION RT-DAILY 01/30/17 06/28/17 History Ellipta] Atorvastatin [Lipitor] 80 mg PO HS 05/07/17 06/28/17 History Lisinopril [Zestril] 10 mg PO DAILY 05/07/17 06/28/17 History Nortriptyline [Pamelor] 100 mg PO HS 05/07/17 06/28/17 History Propafenone [Rythmol] 150 mg PO TID 05/07/17 06/28/17 History Spironolactone 50 mg PO DAILY 05/07/17 06/28/17 History Sucralfate [Carafate] 1 gm PO BID 05/07/17 06/28/17 History Metoprolol Tartrate [Lopressor] 25 mg PO BID #60 tab 05/09/17 06/28/17 Rx Allergies Allergy/AdvReac Type Severity Reaction Status Date / Time No Known Allergies Allergy Verified 06/28/17 11:22 Physical Exam Vitals: Vital Signs Temp Pulse Pulse Resp BP BP Pulse Ox 06/29/17 08:11 76 06/29/17 08:01 76 18 90 L 06/29/17 04:00 70 12 06/29/17 03:38 97.1 F L 70 12 98/56 95 06/29/17 00:00 70 12 06/28/17 23:41 96 14 104/57 95 06/28/17 20:00 127 H 18 99/64 95 06/28/17 15:15 112 H 16 97/64 95 06/28/17 13:37 100 18 94/69 97 06/28/17 12:59 92 20 96/66 06/28/17 12:05 105 H 18 101/60 94 L 06/28/17 11:14 125 H 18 118/57 97 06/28/17 10:53 97.0 F L 125 H 20 97/64 97 Intake and Output 06/28/17 06/29/17 06/29/17 22:59 06:59 14:59 Other: # Voids 3 1 Weight 97 kg PHYSICAL EXAMINATION: HEENT: Head is atraumatic, normocephalic. Pupils equal, round. Neck is supple. There is no elevated jugular venous pressure. HEART EXAMINATION: Heart S1, S2 normal. No murmur or gallop heard. CHEST EXAMINATION: Lungs are clear to auscultation and precussion. No chest wall tenderness is noted on palpation or with deep breathing. ABDOMEN: Soft, nontender. Bowel sounds are heard. No organomegaly noted. EXTREMITIES: 2+ peripheral pulses with no evidence of peripheral edema and no calf tenderness noted. NEUROLOGIC patient is awake, alert and oriented -3. . Results 06/29/17 06:57 06/29/17 06:57 Cardiac Enzymes 06/28/17 06/28/17 06/28/17 Range/Units 11:11 11:11 17:30 AST 29 (17-59) U/L CK-MB (CK-2) 0.5 0.4 (0.0-2.4) ng/mL Troponin I <0.012 <0.012 (0.000-0.034) ng/mL 06/28/17 06/29/17 Range/Units 23:46 06:57 AST 22 (17-59) U/L CK-MB (CK-2) 0.4 (0.0-2.4) ng/mL Troponin I <0.012 (0.000-0.034) ng/mL Coagulation 06/28/17 Range/Units 11:11 PT 9.8 (9.0-12.0) sec APTT 25.8 (22.0-30.0) sec CBC 06/28/17 06/29/17 Range/Units 11:11 06:57 WBC 7.2 5.4 (3.8-10.6) k/uL RBC 5.29 4.23 L (4.30-5.90) m/uL Hgb 16.4 13.3 D (13.0-17.5) gm/dL Hct 47.2 38.0 L (39.0-53.0) % Plt Count 206 173 (150-450) k/uL Comprehensive Metabolic Panel 06/28/17 06/29/17 Range/Units 11:11 06:57 Sodium 140 139 (137-145) mmol/L Potassium 4.7 4.4 (3.5-5.1) mmol/L Chloride 102 104 (98-107) mmol/L Carbon Dioxide 25 25 (22-30) mmol/L BUN 14 17 (9-20) mg/dL Creatinine 1.00 1.04 (0.66-1.25) mg/dL Glucose 125 H 90 (74-99) mg/dL Calcium 9.9 8.6 (8.4-10.2) mg/dL AST 29 22 (17-59) U/L ALT 50 41 (21-72) U/L Alkaline Phosphatase 121 87 (38-126) U/L Total Protein 7.0 5.5 L (6.3-8.2) g/dL Albumin 4.5 3.4 L (3.5-5.0) g/dL Current Medications Generic Name Dose Route Start Last Admin Trade Name Freq PRN Reason Stop Dose Admin Hydrocodone Bitart/Acetaminophen 1 each 06/28/17 16:47 06/29/17 06:35 Union 5-325 PO 1 each Q6HR PRN Administration MODERATE Pain Albuterol Sulfate 2.5 mg 06/28/17 13:55 Ventolin Nebulized INHALATION RT-Q4H PRN Shortness Of Breath Apixaban 5 mg 06/28/17 21:00 06/28/17 20:10 Eliquis PO 5 mg BID REED Administration Atorvastatin Calcium 80 mg 06/28/17 21:00 06/28/17 20:10 Lipitor PO 80 mg HS REED Administration Budesonide/Formoterol Fumarate 2 puff 06/29/17 08:00 06/29/17 07:57 Symbicort 80-4.5 Mcg Inhaler INHALATION 2 puff RT-BID REED Administration Gabapentin 1,600 mg 06/28/17 21:00 06/28/17 20:10 Neurontin PO 1,600 mg BID REED Administration Ipratropium [place] 0.5 mg 06/29/17 08:00 06/29/17 07:58 Atrovent Nebulized INHALATION 0.5 mg RT-QID REED Administration Lisinopril 10 mg 06/29/17 09:00 Zestril PO DAILY [facility] Metoprolol Tartrate 25 mg 06/28/17 21:00 06/28/17 20:10 Lopressor PO 25 mg BID REED Administration Morphine Sulfate 4 mg 06/28/17 13:17 06/29/17 03:35 Morphine Sulfate (Inj) IV 4 mg Q4HR PRN Administration Severe Pain Naloxone HCl 0.2 mg 06/28/17 13:17 Narcan IV Q2M PRN Opioid Reversal Nortriptyline HCl 100 mg 06/28/17 21:00 06/28/17 23:39 Pamelor PO 100 mg HS [facility] Administration Pantoprazole Sodium 40 mg 06/29/17 07:30 06/29/17 06:33 Protonix PO 40 mg [id number] REED Administration Propafenone HCl 150 mg 06/28/17 16:00 06/28/17 20:11 Rythmol PO 150 mg TID [facility] Administration Spironolactone 50 mg 06/29/17 09:00 Aldactone PO DAILY [facility] Sucralfate 1 gm 06/28/17 17:30 06/29/17 06:33 Carafate PO 1 gm AC-BID REED Administration Tamsulosin HCl 0.4 mg 06/28/17 21:00 06/28/17 20:11 Flomax PO 0.4 mg HS REED Administration Intake and Output 06/28/17 06/29/17 06/29/17 22:59 06:59 14:59 Other: # Voids 3 1 Weight 97 kg 06/29/17 06:57 06/29/17 06:57 EKG Interpretations (text) EKG shows atrial fibrillation with a rapid ventricular response Assessment and Plan Plan: Assessment and plan #1 chest discomfort, likely secondary to atrial fibrillation with rapid ventricular response, troponins are negative 3. EKG showed atrial fibrillation with a rapid ventricular response. #2 Atrial fibrillation with rapid ventricular response, paroxysmal, patient currently in normal sinus rhythm. #3 hypertension #4 history of nicotine dependence # 5 family history of premature coronary artery disease #6 history of typical atrial flutter with prior ablation in May of this year Plan Patient had an echocardiogram with Doppler study performed in April of this year in the office, we will obtain a record of that. We will discontinue the IV Cardizem drip and continue lisinopril, metoprolol 25 twice a day, Eliquis 5 mg twice a day, Rythmol 150 mg 3 times a day and Aldactone 25 mg daily. We will also further discuss with Dr. Sanford regarding possible cardiac catheterization. Further recommendations will be based on these findings and patient's clinical course. DNP note has been reviewed, I agree with a documented findings and plan of care. Patient was seen and examined.
[2017-06-29] MEDS: GABAPENTIN 400 MG CAP PO SCH ×2 (09:14→19:26)
[2017-06-29] MEDS: SPIRONOLACTONE 25 MG TAB PO SCH (09:14)
[2017-06-29] MEDS: METOPROLOL TARTRATE 25 MG TAB PO SCH ×2 (09:14→19:27)
[2017-06-29] MEDS: LISINOPRIL 10 MG TAB PO SCH (09:14)
[2017-06-29] MEDS: PROPAFENONE 150 MG TAB PO SCH ×3 (09:14→19:26)
[2017-06-29] MEDS: APIXABAN 5 MG TAB PO SCH (09:14)
[2017-06-29] MEDS ORDERED: SODIUM CHLORIDE 0.9% 1,000 ML in EMPTY BAG 1 BAG IV ONE ×2 (10:33→18:00)
[2017-06-29] MEDS ORDERED: ATORVASTATIN 80 MG TAB PO STA (10:33)
[2017-06-29] MEDS ORDERED: ALPRAZolam 0.5 MG TAB PO PRN (10:33)
[2017-06-29] MEDS ORDERED: NITROGLYCERIN SL TABS 0.4 MG TAB SUBLINGUAL PRN (10:33)
[2017-06-29] MEDS ORDERED: ASPIRIN 325 MG TAB PO STA (10:33)
[2017-06-29] MEDS ORDERED: ALPRAZolam 0.25 MG TAB PO PRN (10:33)
--- NOTE | 2017-06-29 13:56 | P.PN ---
Subjective Progress Note Date: 06/29/17 This is a 57-year-old male, patient of Dr. Warren. Patient has a past medical history of atrial fibrillation which she is required 2 cardiac ablations. Last cardiac ablation was May 2017. Also at that time he had adjustments made to his rate control medications. Patient had been doing well. And over the last 3 days he started to feel heart palpitations and chest pains. He reports that he felt like his heart was going to pound out of his chest. It happened again this morning he reported a heart rate in the 150s. [facility] and was told to present to the emergency room. EKG had shown atrial fibrillation with rapid ventricular response heart rate of 127. Patient was placed on a Cardizem drip. He is already on Eliquis for anticoagulation. He also takes Rythmol and metoprolol at home. Patient reports taking his medications as prescribed. He reports that he did not miss any doses. Patient will be evaluated by cardiology. First troponin is negative. Chest x-ray negative. Patient denies any cough, fever or chills sweats, nausea or vomiting , bowel movement changes or urinary symptoms. 06/29/2017 patient has remained in normal sinus rhythm. He's had no further episodes of heart palpitation or chest pain. Troponins were negative 3 sets. Awaiting cardiology recommendations in regards to heart catheterization. They may be playing a heart cath for tomorrow morning Objective - Vital Signs Vital signs: Vital Signs Temp 97.1 F L 06/29/17 11:46 Pulse 68 06/29/17 11:46 Resp 18 06/29/17 11:46 BP 108/69 06/29/17 11:46 Pulse Ox 100 06/29/17 11:46 Intake & Output 06/28/17 06/29/17 06/29/17 18:59 06:59 18:59 Intake Total 480 Balance 480 Weight 95.254 kg 97 kg Intake: Oral 480 Other: # Voids 1 - Exam Head normocephalic Neck supple Lungs clear to auscultation bilaterally no wheezing or crackles Heart regular rate and rhythm S1-S2, no rub or gallop Abdomen is soft nontender nondistended positive bowel sounds no hepatosplenomegaly Extremities no edema Neuro alert and orientated to 3 - Labs CBC & Chem 7: 06/29/17 06:57 06/29/17 06:57 Labs: Abnormal Lab Results - Last 24 Hours (Table) 06/28/17 06/28/17 06/29/17 Range/Units 17:30 23:46 06:57 RBC 4.23 L (4.30-5.90) m/uL Hct 38.0 L (39.0-53.0) % Total Creatine Kinase 49 L 49 L (55-170) U/L Total Protein (6.3-8.2) g/dL Albumin (3.5-5.0) g/dL 06/29/17 Range/Units 06:57 RBC (4.30-5.90) m/uL Hct (39.0-53.0) % Total Creatine Kinase (55-170) U/L Total Protein 5.5 L (6.3-8.2) g/dL Albumin 3.4 L (3.5-5.0) g/dL Assessment and Plan Assessment: 1. Chest pain with shortness of breath likely secondary to patient's atrial fibrillation with rapid ventricular response. Troponins negative 3. Cardiology will be consulted awaiting further recommendations regards to possible heart catheterization 2. Atrial fibrillation with rapid ventricular response: Patient is converted to normal sinus rhythm. He is off of Cardizem drip. Anticoagulated with Eliquis. Continue metoprolol and Rythmol. Patient has had 2 cardiac ablations in the past, most recent May 2017 . TSH level normal 3. History of persistent atrial fibrillation: Takes Rythmol and metoprolol at home 4. History of TIAs and CVA 5. Essential hypertension: Patient having some hypotension. We'll place parameters around the lisinopril to hold for systolic blood pressure less than 120 6. History of COPD: Stable no evidence of exacerbation. Continue with inhalers GI prophylaxis Protonix and DVT prophylaxis Eliquis I performed an examination of the patient and discussed their management with the physician Fell Cutter. I have reviewed the Physician Fell Cutter's notes and agree with the documented findings and plan of care
[2017-06-29] MEDS: NORTRIPTYLINE 25 MG CAP PO SCH (19:26)
[2017-06-29] MEDS: TAMSULOSIN 0.4 MG CAP.ER.24H PO SCH (19:27)
[2017-06-29] MEDS: ATORVASTATIN 80 MG TAB PO SCH (19:27)
[2017-06-29] MEDS ORDERED: POLYETHYLENE GLYCOL 3350 17 GM POWD.PACK PO SCH (21:00)
[2017-06-30] MEDS: HYDROcodone/APAP 5-325MG 1 EACH TAB PO PRN ×2 (00:58→08:49)
[2017-06-30] MEDS: MORPHINE SULFATE 4 MG/ML SYRINGE IV PRN ×2 (04:42→15:59)
[2017-06-30] MEDS ORDERED: ASPIRIN 325 MG TAB PO ONE (06:00)
[2017-06-30] MEDS: METOPROLOL TARTRATE 25 MG TAB PO SCH ×2 (06:05→16:10)
[2017-06-30] MEDS: GABAPENTIN 400 MG CAP PO SCH (06:05)
[2017-06-30] MEDS: PANTOPRAZOLE 40 MG TABLET PO SCH (06:05)
[2017-06-30] MEDS: SUCRALFATE 1 GM TAB PO SCH ×2 (06:05→16:13)
[2017-06-30] MEDS: PROPAFENONE 150 MG TAB PO SCH ×2 (06:06→16:13)
[2017-06-30] MEDS: LISINOPRIL 10 MG TAB PO SCH ×2 (06:06→16:09)
[2017-06-30 06:56] LABS: Basophils % (A) 1 %; Eosinophils # (A) 0.3 k/uL (0-0.7); Eosinophils % (A) 4 %; HCT 37.2 % (39.0-53.0); HGB 12.9 gm/dL (13.0-17.5); Lymphocytes # (A) 1.8 k/uL (1.0-4.8); Lymphocytes % (A) 30 %; MCH 31.1 pg (25.0-35.0); MCHC 34.7 g/dL (31.0-37.0); MCV 89.5 fL (80.0-100.0); Mean Platelet Volume 7.6; Monocytes # (A) 0.3 k/uL (0-1.0); Monocytes % (A) 5 %; Neutrophils # (A) 3.6 k/uL (1.3-7.7); Neutrophils % (A) 59 %; Platelet Count 167 k/uL (150-450); RBC 4.15 m/uL (4.30-5.90); RDW 13.8 % (11.5-15.5); WBC 6.1 k/uL (3.8-10.6)
[2017-06-30 07:12] LABS: ALT 47 U/L (21-72); AST 25 U/L (17-59); Albumin 3.6 g/dL (3.5-5.0); Alkaline Phosphatase 89 U/L (38-126); Anion Gap 11 mmol/L; Blood Urea Nitrogen 17 mg/dL (9-20); Calcium 8.6 mg/dL (8.4-10.2); Carbon Dioxide 24 mmol/L (22-30); Chloride 104 mmol/L (98-107); Glucose 80 mg/dL (74-99); Potassium 4.2 mmol/L (3.5-5.1); Sodium 139 mmol/L (137-145); Total Bilirubin 1.2 mg/dL (0.2-1.3); Total Protein 5.5 g/dL (6.3-8.2)
[2017-06-30] MEDS ORDERED: MIDAZOLAM 2 MG/2 ML VIAL ONE (07:19)
[2017-06-30] MEDS ORDERED: LIDOCAINE 2% INJ 20 MG/ML (20 ML MDV) ONE (07:19)
[2017-06-30] MEDS ORDERED: SODIUM CHLORIDE 0.9% 1,000 ML IV ONE (07:26)
[2017-06-30] MEDS ORDERED: diphenhydrAMINE 50 MG/ML 1 ML VIAL ONE (07:47)
[2017-06-30] MEDS ORDERED: diphenhydrAMINE 50 MG/ML 1 ML VIAL IVP ONE (07:49)
[2017-06-30] MEDS ORDERED: LIDOCAINE 2% INJ 20 MG/ML IV ONE (07:51)
[2017-06-30] MEDS ORDERED: MIDAZOLAM 2 MG/2 ML VIAL IV ONE (07:52)
[2017-06-30] MEDS ORDERED: IOPAMIDOL-370 125ML BTL INJ ONE (08:08)
[2017-06-30] MEDS ORDERED: IOPAMIDOL-370 50ML BTL INJ ONE (08:09)
[2017-06-30] MEDS ORDERED: RX INFO: IV CONTRAST WAS GIVEN 1 EACH MISC MISCELLANE PRN (08:13)
[2017-06-30] MEDS ORDERED: SODIUM CHLORIDE 0.9% 1,000 ML IV SCH (08:15)
[2017-06-30] MEDS: SYMBICORT 80-4.5 MCG INHALER INHALATION SCH (08:55)
[2017-06-30] MEDS: IPRATROPIUM 0.5 MG/2.5 ML NEBU INHALATION SCH ×3 (08:55→16:13)
[2017-06-30 09:24] VITALS: RESP 16
--- NOTE | 2017-06-30 09:25 | CC ---
CARDIAC CATHETERIZATION REPORT INDICATION: Unstable angina. PROCEDURE NOTE: After obtaining informed consent, left heart catheterization, coronary angiogram and aortogram were performed via the right femoral artery using standard Robin catheters. A femoral angiogram was performed and Angio-Seal was deployed for hemostasis. The patient tolerated the procedure well without any obvious immediate complications. Patient received moderate conscious sedation. Total sedation time was 15 minutes. FINDINGS: 1. HEMODYNAMICS: Left ventricular end-diastolic pressure is 12 to 16 mm. There is no significant gradient across the aortic valve. 2. LEFT VENTRICULOGRAM: Left ventriculogram is not performed. 3. Aortogram shows mildly dilated ascending aorta and ectatic aortic annulus. 4. ANGIOGRAPHIC DATA: Left main coronary artery; left main coronary artery is a normal-sized vessel and is free of stenosis. Divides into left anterior descending coronary artery and circumflex coronary artery. LAD shows mild atherosclerotic plaque. Circumflex coronary artery is a codominant vessel. It shows mild nonobstructive disease. Right coronary artery is a is a small caliber vessel shows mild nonobstructive disease. CONCLUSIONS: 1. Mild nonobstructive coronary artery disease. 2. Mild ascending aortic aneurysm. PLAN: Patient's chest discomfort is probably noncardiac in origin and he does not require further evaluation at this time. He may be discharged home and outpatient followup arranged through my office. Thank you for giving me the privilege to participate on this pleasant gentleman. MMODL / IJN: [id number] /
[2017-06-30] MEDS: SPIRONOLACTONE 25 MG TAB PO SCH (16:13)
--- NOTE | 2017-06-30 16:20 | P.DS ---
Providers Date of admission: 06/28/17 13:17 Expected date of discharge: 06/30/17 Attending physician: Anderson Jerez Consults: 06/28/17 13:18 Consult Physician Routine Consulting Provider: Fito Reeves Consult Reason/Comments: A. fib with RVR, CP Do you want consulting provider notified?: Yes Primary care physician: Ml [facility] Course: Diagnosis on discharge 1. Chest pain with shortness of breath likely secondary to patient's atrial fibrillation with rapid ventricular response. Troponins negative 3. Patient was seen by cardiology and underwent heart catheterization, he had minimal coronary artery disease without any need for angioplasty or stent placement at this time he also had evidence of mild ascending aortic aneurysm. Patient was cleared for discharge by cardiology, he will be followed up by Dr. Sanford as outpatient for further evaluation 2. Atrial fibrillation with rapid ventricular response: Patient is converted to normal sinus rhythm. He is off of Cardizem drip. Anticoagulated with Eliquis. Continue metoprolol and Rythmol. Patient has had 2 cardiac ablations in the past, most recent May 2017 . TSH level normal 3. History of persistent atrial fibrillation: Takes Rythmol and metoprolol at home 4. History of TIAs and CVA 5. Essential hypertension: Patient having some hypotension. We'll place parameters around the lisinopril to hold for systolic blood pressure less than 120 6. History of COPD: Stable no evidence of exacerbation. Continue with inhalers GI prophylaxis Protonix and DVT prophylaxis Eliquis Hospital course This is a 57-year-old male, patient of Dr. Warren. Patient has a past medical history of atrial fibrillation which she is required 2 cardiac ablations. Last cardiac ablation was May 2017. Also at that time he had adjustments made to his rate control medications. Patient had been doing well. And over the last 3 days he started to feel heart palpitations and chest pains. He reports that he felt like his heart was going to pound out of his chest. It happened again this morning he reported a heart rate in the 150s. He called [facility] and was told to present to the emergency room. EKG had shown atrial fibrillation with rapid ventricular response heart rate of 127. Patient was placed on a Cardizem drip. He is already on Eliquis for anticoagulation. He also takes Rythmol and metoprolol at home. Patient reports taking his medications as prescribed. He reports that he did not miss any doses. Patient will be evaluated by cardiology. First troponin is negative. Chest x-ray negative. Patient denies any cough, fever or chills sweats, nausea or vomiting , bowel movement changes or urinary symptoms. 06/29/2017 patient has remained in normal sinus rhythm. He's had no further episodes of heart palpitation or chest pain. Troponins were negative 3 sets. Awaiting cardiology recommendations in regards to heart catheterization. They may be playing a heart cath for tomorrow morning On 06/30/2017 patient was chest pain-free he is in normal sinus rhythm he underwent cardiac catheterization which revealed minimal coronary artery disease without any need for angioplasty or stent placement patient also had mild ascending aortic aneurysm. He was symptom-free he was cleared for discharge by cardiology and was discharged home on 06/30/2017 he would be followed by Dr. Sanford for further evaluation as outpatient Patient Condition at Discharge: Stable Plan - Discharge Summary Discharge Rx Participant: No New Discharge Prescriptions: Continue Dexlansoprazole [Dexilant] 60 mg PO QAM Tamsulosin [Flomax] 0.4 mg PO HS Apixaban [Eliquis] 5 mg PO BID #60 tab Gabapentin 1,600 mg PO BID Umeclidinium [place] [Incruse Ellipta] 1 puff INHALATION RT-DAILY Albuterol Inhaler [Ventolin Hfa Inhaler] 2 puff INHALATION RT-Q4H PRN PRN Reason: Shortness Of Breath Fluticasone/Vilanterol [Breo Ellipta 100-25 Mcg Inhaler] 1 puff INHALATION RT -DAILY Lisinopril [Zestril] 10 mg PO DAILY Propafenone [Rythmol] 150 mg PO TID Sucralfate [Carafate] 1 gm PO BID Spironolactone 50 mg PO DAILY Nortriptyline [Pamelor] 100 mg PO HS Atorvastatin [Lipitor] 80 mg PO HS Metoprolol Tartrate [Lopressor] 25 mg PO BID #60 tab Discharge Medication List Dexlansoprazole [Dexilant] 60 mg PO QAM 06/12/15 [History] Tamsulosin [Flomax] 0.4 mg PO HS 06/12/15 [History] Apixaban [Eliquis] 5 mg PO BID #60 tab 01/28/16 [Rx] Gabapentin 1,600 mg PO BID 03/18/16 [History] Albuterol Inhaler [Ventolin Hfa Inhaler] 2 puff INHALATION RT-Q4H PRN 01/30/17 [ History] Fluticasone/Vilanterol [Breo Ellipta 100-25 Mcg Inhaler] 1 puff INHALATION RT- DAILY 01/30/17 [History] Umeclidinium [place] [Incruse Ellipta] 1 puff INHALATION RT-DAILY 01/30/17 [ History] Atorvastatin [Lipitor] 80 mg PO HS 05/07/17 [History] Lisinopril [Zestril] 10 mg PO DAILY 05/07/17 [History] Nortriptyline [Pamelor] 100 mg PO HS 05/07/17 [History] Propafenone [Rythmol] 150 mg PO TID 05/07/17 [History] Spironolactone 50 mg PO DAILY 05/07/17 [History] Sucralfate [Carafate] 1 gm PO BID 05/07/17 [History] Metoprolol Tartrate [Lopressor] 25 mg PO BID #60 tab 05/09/17 [Rx] Follow up Appointment(s)/Referral(s): Ml Warren DO [Primary Care Provider] - 1-2 days Samson Sanford MD [STAFF PHYSICIAN] - 2 Weeks
[2017-06-30 16:53] VITALS: BP 108/57; PULSE 69; TEMP 97.7
[2017-06-30] MEDS ORDERED: APIXABAN 5 MG TAB PO SCH (18:00)
== END 2017-06-30 17:18 | disposition home or self-care (01) | DRG 287 ==
LOC: EC 10:49 → 6SEL 13:17
PROVIDERS: ADMIT Internal Medicine; ATTEND Internal Medicine
PROC: B211YZZ Fluoroscopy of Multiple Coronary Arteries using Other Contrast (ICD-10-PCS; 2017-06-30)
PROC: B410YZZ Fluoroscopy of Abdominal Aorta using Other Contrast (ICD-10-PCS; 2017-06-30)
PROC: 4A023N7 Measurement of Cardiac Sampling and Pressure, Left Heart, Percutaneous Approach (ICD-10-PCS; principal; 2017-06-30 07:13)
DX: I48.1 Persistent atrial fibrillation (principal); I25.110 Atherosclerotic heart disease of native coronary artery with unstable angina pectoris; I95.9 Hypotension, unspecified; I71.2 Thoracic aortic aneurysm, without rupture; I48.4 Atypical atrial flutter; J44.9 Chronic obstructive pulmonary disease, unspecified; K21.9 Gastro-esophageal reflux disease without esophagitis; I10 Essential (primary) hypertension; M19.91 Primary osteoarthritis, unspecified site; I83.90 Asymptomatic varicose veins of unspecified lower extremity; N40.0 Benign prostatic hyperplasia without lower urinary tract symptoms; E29.1 Testicular hypofunction; Z79.01 Long term (current) use of anticoagulants; Z79.51 Long term (current) use of inhaled steroids; Z79.899 Other long term (current) drug therapy; Z86.73 Personal history of transient ischemic attack (TIA), and cerebral infarction without residual deficits; Z90.49 Acquired absence of other specified parts of digestive tract; Z98.1 Arthrodesis status; Z96.651 Presence of right artificial knee joint; Z86.79 Personal history of other diseases of the circulatory system; Z87.891 Personal history of nicotine dependence; Z82.49 Family history of ischemic heart disease and other diseases of the circulatory system
CPT/HCPCS: 36415; 71046; 80053; 82550; 82553; 83735; 84443; 84484; 85025; 85610; 85730; 93005; 93458; 94640; 96365; 96366; 96375; 96376; 99291

== ENCOUNTER → 2017-08-31 | Outpatient (CLI) | payer OTHER ==
[2017-08-31 12:23] LABS: HGB 14.1 gm/dL (13.0-17.5); MCH 31.5 pg (25.0-35.0); MCHC 34.4 g/dL (31.0-37.0); MCV 91.5 fL (80.0-100.0); Mean Platelet Volume 7.2; Platelet Count 212 k/uL (150-450); RBC 4.48 m/uL (4.30-5.90); RDW 13.6 % (11.5-15.5); WBC 7.4 k/uL (3.8-10.6)
[2017-08-31 12:29] LABS: Anion Gap 11 mmol/L; Blood Urea Nitrogen 14 mg/dL (9-20); Calcium 9.2 mg/dL (8.4-10.2); Carbon Dioxide 27 mmol/L (22-30); Chloride 102 mmol/L (98-107); Glucose 85 mg/dL (74-99); Potassium 4.7 mmol/L (3.5-5.1); Sodium 140 mmol/L (137-145)
== END | disposition home or self-care (01) ==
LOC: LABWHC1 11:42
PROVIDERS: ATTEND Internal Medicine Clinical Cardiac Electrophysiology
DX: I48.0 Paroxysmal atrial fibrillation (principal); G45.9 Transient cerebral ischemic attack, unspecified; R07.2 Precordial pain
CPT/HCPCS: 36415; 80048; 85027

== ENCOUNTER 2017-09-09 06:03 | Day surgery (SDC) | payer OTHER ==
[2017-09-09] MEDS: SODIUM CHLORIDE 0.9% 1,000 ML IV SCH (06:35)
[2017-09-09] MEDS ORDERED: MIDAZOLAM 2 MG/2 ML VIAL ONE (07:32)
[2017-09-09] MEDS ORDERED: HEPARIN SODIUM,PORCINE 10,000 UNIT/ML 1 ML VIAL ONE (07:32)
[2017-09-09] MEDS ORDERED: NEOSTIGMINE 1 MG/ML 10 ML VIAL ONE (07:32)
[2017-09-09] MEDS ORDERED: GLYCOPYRROLATE 0.2 MG/ML 2 ML VIAL ONE (07:32)
[2017-09-09] MEDS ORDERED: fentaNYL (PF) 50 MCG/ML 2 ML AMP ONE (07:32)
[2017-09-09] MEDS ORDERED: ROCURONIUM BROMIDE 10 MG/ML 10 ML VIAL IV ONE (07:32)
[2017-09-09] MEDS ORDERED: SUCCINYLCHOLINE CHLORIDE 100 MG/5 ML SYR IV ONE (07:32)
[2017-09-09] MEDS ORDERED: PROTAMINE SULFATE 10 MG/ML 5 ML VIAL IV ONE (07:32)
[2017-09-09] MEDS ORDERED: ISOPROTERENOL 250 MCG/1.25 ML SYR IV ONE (07:32)
[2017-09-09] MEDS ORDERED: METOPROLOL TARTRATE 5 MG/5 ML VIAL IVP ONE (07:32)
[2017-09-09] MEDS ORDERED: PROPOFOL 10 MG/ML 20 ML VIAL IV ONE (07:32)
[2017-09-09] MEDS ORDERED: HEPARIN SODIUM (1,000 UNIT/ML) 1,000 UNIT in SODIUM CHLORIDE 0.9% 1,000 ML IRRIGATION ONE (08:02)
[2017-09-09] MEDS ORDERED: HEPARIN SOD,PORK IN 0.45% NACL 25,000 UNIT in 0.45% NACL 1 500ML.BAG IV ONE (08:20)
[2017-09-09] MEDS ORDERED: LIDOCAINE 1% INJ 10MG/ML (20 ML MDV) SQ ONE (08:21)
[2017-09-09] MEDS ORDERED: DEXTROSE 5% IN WATER 100 ML with AMIODARONE 150 MG IV ONE ×2 (11:20→12:58)
[2017-09-09] MEDS ORDERED: ACETAMINOPHEN TAB 325 MG TAB PO PRN (11:24)
[2017-09-09] MEDS ORDERED: ACETAMINOPHEN IV (For NPO) 1,000 MG in EMPTY BAG 1 BAG IVPB ONE (12:00)
[2017-09-09] MEDS ORDERED: AMIODARONE 50 MG/ML 3 ML VIAL IV ONE (12:20)
[2017-09-09] MEDS: LACTATED RINGERS 1,000 ML IV SCH (13:30)
--- NOTE | 2017-09-09 14:01 | CE ---
CARDIAC ELECTROPHYSIOLOGY REPORT This is a 57-year-old male patient who had has atrial fibrillation despite cryoablation of the pulmonary veins with complete isolation of 2 left-sided veins and 3 right-sided veins previously. He has very symptomatic atrial fibrillation. He also has a fairly dilated left atrium, but has paroxysmal atrial fibrillation. He has a history of regular alcohol use, almost on a daily basis. Patient is brought to the EP lab in a fasting state. Written informed consent was obtained prior to the procedure. Procedure was performed under general anesthesia, the left and right groins were prepped and draped as per protocol. A 5-[place] sheath was placed in the right femoral artery for hemodynamic monitoring and sampling. Heparin was infused. ACT maintained above 300. Venous sheaths were placed in the right and left femoral veins and via these diagnostic catheters in the high right atrial area, HIS bundle area, and RV and coronary sinus were placed with intracardiac echo catheter and long sheaths for transseptal access were placed. A 3D mapping of the left atrium was performed with intracardiac echo and later with mapping/voltage mapping in sinus rhythm. Left to right transseptal catheterization was performed. RA pressure 9/1/5 mmHg, AR pressure of 10/1/14 mmHg. Sheath was placed in the left atrium. Heparin was started. Sinus cycle length 732 milliseconds, VT interval 167 milliseconds, QRS 99 milliseconds, QT 404 milliseconds. AH interval 69 milliseconds, HV interval 43 milliseconds. Sinus node recovery times of 600 and 500 milliseconds were 1205 and 1241 milliseconds. AV node Wenckebach block 370 milliseconds. VA Wenckebach block 380 milliseconds. AV node Wenckebach block from the high right atrium 370 milliseconds. On Isuprel, extra stimulation burst stimulation was performed after triple extra stimuli. Bursts of atrial fibrillation were induced, one episode lasted about 15 seconds, the other for about 3-4 minutes and the third lasted for greater than 10 to 15 minutes. IV metoprolol was given but termination before cardioversion was performed. The pulmonary veins were completely isolated. The left-sided pulmonary veins showed entrance block as well as exit block. The right-sided pulmonary veins showed right superior and right middle vein and then by a fairly broad pia, right inferior vein. Individually, each pulmonary vein was completely isolated. The left atrial size was almost 5.8 x 5.4 cm. The inter-venous distance in the roof was 5.8 cm. Therefore, a decision was made not to perform a linear ablation in the roof, but rather anterior and posterior wall linear ablation vertically to debulk the left atrium. Mapping was performed. Complex fractionated electrograms are identified along the anterior posterior wall and liner ablation was performed along the right side of the left atrium. This line was then connected to the pulmonary veins to debulk the left atrium. Following that, atrial fibrillation could still be induced with short episodes only on high-dose Isuprel. Patient tolerated the procedure well without any acute complications. PLAN: 1. Continue Eliquis. 2. Complete cessation from alcohol use. 3. Consider starting Multaq 4 mg twice daily. Propofol has failed and previously patient could not tolerate flecainide. 4. This was discussed with his . RICHMOND / YULI: [id number] /
--- NOTE | 2017-09-09 14:07 | LTR ---
DATE OF SERVICE: 09/09/2017 RE: Josh Soler Dear Ml; I had the pleasure of seeing Josh Soler in electrophysiology followup. As you know, Shahid has very symptomatic paroxysmal atrial fibrillation as well as atrial flutter. He underwent successful atrial flutter ablation and he has not had any recurrences. He underwent successful cryoablation of the pulmonary veins with complete isolation of all four pulmonary veins. He states that although there has been a significant reduction in his episodes of atrial fibrillation, he still continues to have quite symptomatic episodes. Therefore he was brought back to the EP lab for an EP study. The EP study revealed that his pulmonary veins were completely isolated, linear ablation was then performed to debulk the left atrium along the right side of the left atrium and then connect to the right-sided pulmonary veins. He will continue to have short episodes of atrial fibrillation, but will be imperative on his part to stop alcohol consumption completely. He does drink hard liquor on a daily basis and sometimes a fairly substantial amount and hopefully he is able to stop this completely. I did have a discussion regarding this with his and I will talk to the patient about it, too. His left atrium is quite enlarged even though he has paroxysmal atrial fibrillation with a normal LV function and normal coronary arteries. The inter-pulmonary venous distance was almost 5.8 cm. Hopefully with alcohol cessation and less atrial fibrillation, this should allow for interval remodeling of the left atrium. He should continue Eliquis lifelong. Thank you for entrusting the care of you patient. Warm regards. Sincerely, MD RICHMOND Guillen / YULI: [id number] /
[2017-09-09 17:14] VITALS: BMI 28.7
[2017-09-09] MEDS: DRONEDARONE 400 MG TAB PO SCH (17:17)
[2017-09-09] MEDS ORDERED: ATORVASTATIN 80 MG TAB PO SCH (21:00)
[2017-09-09] MEDS ORDERED: GABAPENTIN 400 MG CAP PO SCH (21:00)
[2017-09-09] MEDS ORDERED: NORTRIPTYLINE 25 MG CAP PO SCH (21:00)
[2017-09-09] MEDS ORDERED: TAMSULOSIN 0.4 MG CAP.ER.24H PO SCH (21:00)
[2017-09-09] MEDS: APIXABAN 5 MG TAB PO SCH (21:17)
[2017-09-09] MEDS: METOPROLOL TARTRATE 25 MG TAB PO SCH (21:17)
[2017-09-09] MEDS: HYDROcodone/APAP 5-325MG 1 EACH TAB PO PRN (21:27)
[2017-09-10] MEDS: HYDROcodone/APAP 5-325MG 1 EACH TAB PO PRN (02:52)
[2017-09-10 03:26] VITALS: RESP 16
[2017-09-10] MEDS: IPRATROPIUM 0.5 MG/2.5 ML NEBU INHALATION SCH ×2 (07:04→10:29)
[2017-09-10] MEDS ORDERED: FUROSEMIDE 40 MG TAB PO STA (07:46)
[2017-09-10] MEDS ORDERED: SYMBICORT 80-4.5 MCG INHALER INHALATION SCH (08:00)
--- NOTE | 2017-09-10 08:17 | P.DS ---
Providers Attending physician: Heladio Vasquez Primary care physician: [facility] Course: Patient is doing well. No chest discomfort dizziness lightheadedness or palpitations. Groins have healed well no pain no swelling On examination he is afebrile 98.5F Blood pressure 114/72 mmHg Breath sounds are clear no rhonchi no crackles Heart sounds S1 and S2 are normal no murmurs or gallops or rub Abdomen soft Groins healed well no hematoma no tenderness Impression Linear ablation in the left atrium for management of paroxysmal atrial fibrillation despite complete and successful pulmonary vein isolation in the past. The pulmonary veins were interrogated during this study and were found to be completely isolated Plan Stop propafenone Start MULTAQ Continue ELIQUIS Follow-up with Dr. Lucero in 1-2 weeks Patient Condition at Discharge: Stable Plan - Discharge Summary Discharge Rx Participant: No New Discharge Prescriptions: New Dronedarone [Multaq] 400 mg PO AC-BID #180 tab Discontinued RX: Propafenone [Rythmol] 150 mg PO BID No Action RX: Dexlansoprazole [Dexilant] 60 mg PO QAM RX: Tamsulosin [Flomax] 0.4 mg PO HS RX: Apixaban [Eliquis] 5 mg PO BID #60 tab RX: Gabapentin 1,600 mg PO HS RX: Umeclidinium [place] [Incruse Ellipta] 1 puff INHALATION RT-DAILY RX: Albuterol Inhaler [Ventolin Hfa Inhaler] 2 puff INHALATION RT-Q4H PRN PRN Reason: Shortness Of Breath RX: Fluticasone/Vilanterol [Breo Ellipta 100-25 Mcg Inhaler] 1 puff INHALATION RT-DAILY RX: Sucralfate [Carafate] 1 gm PO BID RX: Spironolactone 50 mg PO DAILY RX: Nortriptyline [Pamelor] 100 mg PO HS RX: Atorvastatin [Lipitor] 80 mg PO HS RX: Metoprolol Tartrate [Lopressor] 25 mg PO BID #60 tab Toriaz 8 mg PO DAILY Discharge Medication List RX: Dexlansoprazole [Dexilant] 60 mg PO QAM 06/12/15 [History] RX: Tamsulosin [Flomax] 0.4 mg PO HS 06/12/15 [History] RX: Apixaban [Eliquis] 5 mg PO BID #60 tab 01/28/16 [Rx] RX: Gabapentin 1,600 mg PO HS 03/18/16 [History] RX: Albuterol Inhaler [Ventolin Hfa Inhaler] 2 puff INHALATION RT-Q4H PRN [History] RX: Fluticasone/Vilanterol [Breo Ellipta 100-25 Mcg Inhaler] 1 puff INHALATION RT-DAILY 01/30/17 [History] RX: Umeclidinium [place] [Incruse Ellipta] 1 puff INHALATION RT-DAILY 01/30/17 [ History] RX: Atorvastatin [Lipitor] 80 mg PO HS 05/07/17 [History] RX: Nortriptyline [Pamelor] 100 mg PO HS 05/07/17 [History] RX: Spironolactone 50 mg PO DAILY 05/07/17 [History] RX: Sucralfate [Carafate] 1 gm PO BID 05/07/17 [History] RX: Metoprolol Tartrate [Lopressor] 25 mg PO BID #60 tab 05/09/17 [Rx] Toriaz 8 mg PO DAILY 09/02/17 [History] Dronedarone [Multaq] 400 mg PO AC-BID #180 tab 09/09/17 [Rx] Follow up Appointment(s)/Referral(s): Samson Sanford MD [STAFF PHYSICIAN] - 1 Week Activity/Diet/Wound Care/Special Instructions: Post EP study - Ablation instructions 1. Keep access sites dry for 2 days. 2. No heavy lifting or straining for 2 days. 3. Avoid bending the hips repeatedly for 2 days. 4. You may go up and down stairs slowly Call if the following is noted 1. Bleeding, increasing swelling or pain at the access sites. 2. Increasing chest discomfort, especially upon taking a deep breath. 3. Increasing shortness of breath, at rest or with exertion. 4. Undue cough / phlegm 5. Difficulty or pain while swallowing. 6. Pain or change in color in the extremities. 7. Fever, chills, rigors. 8. Increasing headache or neurologic symptoms. 9. Dizziness, fainting, palpitations Stop propafenone Start Multaq 400 mg twice daily Complete abstinence from alcohol use Follow-up with Dr. Sanford in 1 week Use Multaq printed card - $0 copay for 12 months. Copay is $20 per month without coupon, insurance will only cover a 30 day supply at a time. Discharge Disposition: HOME SELF-CARE
[2017-09-10 08:43] VITALS: TEMP 97.7
[2017-09-10] MEDS ORDERED: PANTOPRAZOLE 40 MG TABLET PO SCH (09:00)
[2017-09-10] MEDS ORDERED: SPIRONOLACTONE 25 MG TAB PO SCH (09:00)
[2017-09-10] MEDS ORDERED: TROSPIUM CHLORIDE 20 MG TABLET PO SCH (09:00)
[2017-09-10] MEDS: SODIUM CHLORIDE 0.9% 1,000 ML IV SCH (09:24)
[2017-09-10] MEDS: LACTATED RINGERS 1,000 ML IV SCH (09:24)
[2017-09-10] MEDS: METOPROLOL TARTRATE 25 MG TAB PO SCH (09:26)
[2017-09-10] MEDS: DRONEDARONE 400 MG TAB PO SCH (09:26)
[2017-09-10] MEDS: APIXABAN 5 MG TAB PO SCH (09:26)
[2017-09-10 10:20] VITALS: BP 120/76; PULSE 68
== END 2017-09-10 10:38 | disposition home or self-care (01) ==
LOC: CATHEP 06:03 → 3OBS 10:51 → CATHEP 09-10 10:38
PROVIDERS: ATTEND Internal Medicine Clinical Cardiac Electrophysiology
DX: I48.0 Paroxysmal atrial fibrillation (principal); I48.92 Unspecified atrial flutter; I11.9 Hypertensive heart disease without heart failure; E78.5 Hyperlipidemia, unspecified; J44.9 Chronic obstructive pulmonary disease, unspecified; K21.9 Gastro-esophageal reflux disease without esophagitis; Z79.01 Long term (current) use of anticoagulants; Z79.82 Long term (current) use of aspirin; Z79.51 Long term (current) use of inhaled steroids; Z79.899 Other long term (current) drug therapy; Z82.49 Family history of ischemic heart disease and other diseases of the circulatory system; Z87.891 Personal history of nicotine dependence
CPT/HCPCS: 94640 ×2; 85347; 93623; 93662; 93613; 93656; C1769 ×4; C1894 ×2; C1730; C1893; C1759; C1732; J2250; J2710; J0282; J2001; J1644 ×2; J3010; J0131; J0330; J2704

== ENCOUNTER → 2018-07-15 | Outpatient (CLI) | payer BC ==
--- NOTE | 2018-07-16 14:26 | CT ---
EXAMINATION TYPE: CT chest wo con DATE OF EXAM: 07/15/2018 COMPARISON: 01/28/2016 HISTORY: SOB CT DLP: 1067.5 mGycm. Automated Exposure Control for Dose Reduction was Utilized. TECHNIQUE: CT scan of the thorax is performed without IV contrast. FINDINGS: There is mild pulmonary emphysema. There is minimal interstitial reticular density in the posterior l rmaya romano. There is no evidence of a pulmonary mass. Heart size is normal. There is no pericardial e ffusion. There is no mediastinal adenopathy. There are no hilar masses. Upper abdominal soft tissues are unremarkable. There is mild aneurysm of the ascending aorta measures 4 cm. The bony thorax appear s intact. IMPRESSION: Mild emphysema and pulmonary fibrotic changes. No suspicious pulmonary mass. Mild aneurys m of the ascending aorta unchanged. CT scan unchanged compared to old exam.
== END | disposition home or self-care (01) ==
LOC: RADCTMAIN 15:56
PROVIDERS: ATTEND Family Medicine
DX: J43.9 Emphysema, unspecified (principal); I71.2 Thoracic aortic aneurysm, without rupture; J84.10 Pulmonary fibrosis, unspecified
CPT/HCPCS: 71250

== ENCOUNTER 2018-10-21 09:18 | Day surgery (SDC) | payer BC ==
[2018-10-19 12:07] VITALS: BMI 66.6
[~2018-10-21 09:18] MED LIST changes: -SODIUM CHLORIDE 0.9% 1,000 ML IV SCH
[2018-10-21 09:36] VITALS: TEMP 96.9
[2018-10-21] MEDS ORDERED: LIDOCAINE 1% 20 ML VIAL (10MG/ML) FOR IV START INTRADERMA ONE (09:38)
[2018-10-21] MEDS ORDERED: KETOROLAC 30 MG/ML 1 ML VIAL IVP ONE (09:46)
[2018-10-21] MEDS ORDERED: GLUCAGON 1 MG/ML VIAL ONE (10:06)
[2018-10-21] MEDS ORDERED: MIDAZOLAM 2 MG/2 ML VIAL ONE (10:06)
[2018-10-21] MEDS ORDERED: PROPOFOL 10 MG/ML 20 ML VIAL IV ONE (10:06)
--- NOTE | 2018-10-21 10:14 | P.GSHP ---
History of Present Illness H&P Date: 10/21/18 Chief Complaint: GI bleed This is a 4-year-old male who's had issues with GI bleed. Patient presents today for colonoscopy. Past Medical History Past Medical History: Atrial Fibrillation, COPD, CVA/TIA, GERD/Reflux, Hyperlipidemia, Hypertension, Osteoarthritis (OA), Prostate Disorder Additional Past Medical History / Comment(s): See Dr Vasquez's H&P, varicose veins, ENLARGED PROSTATE, testicular hypofunction, per pt had stroke 2016 - had diff with speech initially resolved but since has had episodic bouts of difficulty with speech and swallowing. History of Any Multi-Drug Resistant Organisms: None Reported Past Surgical History: Back Surgery, Cardiac Ablation, Cholecystectomy, Joint Replacement, Tonsillectomy Additional Past Surgical History / Comment(s): heart valve sx(OPEN HEART) at age 3, neck fusion ,uvula removed,rt knee replaced. ep study, COLONOSCOPY Past Anesthesia/Blood Transfusion Reactions: No Reported Reaction Smoking Status: Former smoker - Past Family History Mother Family Medical History: No Reported History Additional Family Medical History / Comment(s): mom from [place] at age 48 Father Family Medical History: Myocardial Infarction ([place]) Additional Family Medical History / Comment(s): from [place] at age 54 Medications and Allergies Home Medications Medication Instructions Recorded Confirmed Type Dexlansoprazole [Dexilant] 60 mg PO QAM 06/12/15 10/21/18 History Apixaban [Eliquis] 5 mg PO BID #60 tab 01/28/16 10/21/18 Rx Gabapentin 1,600 mg PO HS 03/18/16 10/21/18 History Albuterol Inhaler [Ventolin Hfa 2 puff INHALATION RT-Q4H PRN 01/30/17 10/21/18 History Inhaler] Atorvastatin [Lipitor] 80 mg PO HS 05/07/17 10/21/18 History Nortriptyline [Pamelor] 100 mg PO HS 05/07/17 10/21/18 History Spironolactone 50 mg PO DAILY 05/07/17 10/21/18 History Sucralfate [Carafate] 1 gm PO BID 05/07/17 10/21/18 History Metoprolol Tartrate [Lopressor] 25 mg PO BID #60 tab 05/09/17 10/21/18 Rx Dronedarone [Multaq] 400 mg PO AC-BID #180 tab 09/09/17 10/21/18 Rx Fluticasone/Umeclidin/Vilanter 1 inhalation INHALATION DAILY 10/19/18 10/21/18 History [Catalina Barakat 100-62.5-25] Allergies Allergy/AdvReac Type Severity Reaction Status Date / Time No Known Allergies Allergy Verified 10/21/18 09:33 Surgical - Exam Vital Signs Temp Pulse Resp BP Pulse Ox 96.9 F L 86 16 118/69 95 10/21/18 09:34 10/21/18 09:34 10/21/18 09:34 10/21/18 09:34 10/21/18 09:34 - General well developed, well nourished, no distress - Eyes PERRL - ENT normal pinna - Neck no masses - Respiratory normal expansion - Cardiovascular Rhythm: regular - Abdomen Abdomen: soft, non tender Assessment and Plan Assessment: GI bleed. We'll perform colonoscopy.
--- NOTE | 2018-10-21 10:32 | P.OP ---
Date of Procedure: 10/21/18 Preoperative Diagnosis: GI bleed Postoperative Diagnosis: Diverticulosis Procedure(s) Performed: Colonoscopy Anesthesia: MAC Surgeon: Abelino Day Pathology: none sent Condition: stable Disposition: PACU Description of Procedure: The patient's placed on the endoscopy table in the lateral position. He received IV sedation. Digital rectal exam was performed which revealed no abnormalities. There was some minimal internal hemorrhoids. The flexible colonoscope was then placed patient anus passed throughout the entire colon. The ileocecal valve was not visualized secondary tortuosity valve. At this point scope was withdrawn. The ascending colon. Normal the transverse colon appeared normal in the descending and sigmoid colon is mild diverticular changes. The scope was then brought back the rectum this appeared normal. Scope was withdrawn for patient. Is presumed patient had some GI bleed due to internal hemorrhoids or diverticuli..
[2018-10-21 10:48] VITALS: BP 120/77; PULSE 79; RESP 18
== END 2018-10-21 11:03 | disposition home or self-care (01) ==
LOC: ORWHC2ENDO 09:18
PROVIDERS: ATTEND Surgery
DX: K64.8 Other hemorrhoids (principal); K21.9 Gastro-esophageal reflux disease without esophagitis; I48.91 Unspecified atrial fibrillation; E78.5 Hyperlipidemia, unspecified; I10 Essential (primary) hypertension; M19.90 Unspecified osteoarthritis, unspecified site; N40.0 Benign prostatic hyperplasia without lower urinary tract symptoms; J44.9 Chronic obstructive pulmonary disease, unspecified; I69.328 Other speech and language deficits following cerebral infarction; I69.391 Dysphagia following cerebral infarction; R13.10 Dysphagia, unspecified; E29.1 Testicular hypofunction; Z98.1 Arthrodesis status; I83.90 Asymptomatic varicose veins of unspecified lower extremity; Z90.49 Acquired absence of other specified parts of digestive tract; Z95.2 Presence of prosthetic heart valve; Z96.651 Presence of right artificial knee joint; Z87.891 Personal history of nicotine dependence; Z82.49 Family history of ischemic heart disease and other diseases of the circulatory system; Z79.01 Long term (current) use of anticoagulants; Z79.51 Long term (current) use of inhaled steroids; Z79.899 Other long term (current) drug therapy
CPT/HCPCS: 45378; J2250; J1610; J1885; J2704

== ENCOUNTER → 2019-12-28 | Outpatient (CLI) | payer BC ==
--- NOTE | 2019-12-28 16:05 | CT ---
EXAMINATION TYPE: CT chest w con DATE OF EXAM: 12/28/2019 COMPARISON: 07/15/2018 HISTORY: Thoracic aortic aneurysm without rupture CT DLP: 538.7 mGycm, Automated exposure control for dose reduction was used. CONTRAST: Performed injected with 100 mL of Isovue 300. TECHNIQUE: Axial images were obtained at 5 mm thick sections. Reconstructed images are reviewed on Enbridge computer in the coronal plane. FINDINGS: Portion of the thyroid visualized is normal. No suspicious lung nodules or focal infiltrates are present. No enlarged mediastinal or hilar adenopathy is evident. The ascending aorta diameter at the level o f the main pulmonary artery is 3.8 cm. The main pulmonary artery diameter at the bifurcation is 2.7 cm. Ascending thoracic aorta at the level the aortic root measures 3.4 cm. Transverse dimension aorti c arch 3.1 cm. Aortic the diaphragm is 2.[address] sections are obtained through the upper abdomen. Abdomen is essentially unremarkable. IMPRESSIONS: 1. Fusiform prominence mid ascending thoracic aorta. No interval increase is evident.
== END | disposition home or self-care (01) ==
LOC: RADCTMAIN 08:49
PROVIDERS: ATTEND Family Medicine
DX: I71.2 Thoracic aortic aneurysm, without rupture (principal)
CPT/HCPCS: 71260; Q9967

== ENCOUNTER → 2020-08-29 | Outpatient (CLI) | payer BC ==
--- NOTE | 2020-08-29 22:01 | MR ---
EXAMINATION TYPE: MR brain wo/w con DATE OF EXAM: 08/29/2020, 01/23/2017 COMPARISON: 05/08/2017. If additional imaging demonstrating the aneurysm is available, comparison coul d be performed. HISTORY: Aneurysm follow up. CONTRAST: Performed utilizing 10 mL intravenous Gadavist gadolinium contrast. TECHNIQUE: Multiplanar, multiecho imaging on a 3.0 Ashley magnet is performed through the brain. Stud y is performed within 24 hours of arrival to the hospital. The craniovertebral junction is normal. The pituitary is normal. Diffusion-weighted imaging is performed. No abnormal hyperintensity is present to suggest an acute i ntracranial infarct or acute ischemic change. There is a punctate subcortical white matter change in left posterior parietal region. Couple of subc ortical white matter changes are in the bilateral parietal lobes to level of the lateral ventricles. There are several punctate white matter changes in the left parietal-occipital junction watershed are a. Subcortical white matter changes in the left parietal lobe. There is a left centrum semiovale whit e matter change measuring 0.5 cm. Ventricles and sulci are prominent for the patient age. Normal vascular flow voids are present. Internal carotid arteries. Bifurcated A1 and M1 segments. The A2 segments appear normal. Middle cerebral artery trifurcation on the right appears slightly promine nt. 0.4 cm aneurysm is not excluded. This area appears stable from comparison. Posterior communicatin g arteries appear patent. IMPRESSIONS: 1. Scattered punctate subcortical white matter changes are nonspecific. Microvascular ischemic change , multiple sclerosis, vasculitis are within the differential. Findings appear stable from 2018. 2. Questionable prominence of the distal right middle cerebral artery at the trifurcation branching l esion of 0.4 cm. This appears similar in comparisons and may be the patient's reported aneurysm. [facility] [place] could better evaluate this finding as well as evaluate for additional aneurys ms.
== END | disposition home or self-care (01) ==
LOC: RADMRIMAIN 14:38
PROVIDERS: ATTEND Family Medicine
DX: I63.9 Cerebral infarction, unspecified (principal)
CPT/HCPCS: 70553; A9585

== ENCOUNTER → 2021-11-14 | Day surgery (SDC) | payer BC ==
[2021-11-12 14:28] VITALS: BMI 29.8
[~2021-11-14] MED LIST changes: +LIDOCAINE 1% (10MG/ML) FOR IV START INTRADERMA PRN; +PROPOFOL 10 MG/ML 20 ML VIAL IV ONE
[2021-11-14 13:05] VITALS: TEMP 96.7
--- NOTE | 2021-11-14 13:48 | P.PCN ---
Date of Procedure: 11/14/21 Procedure(s) Performed: BRIEF HISTORY: Patient is a 61-year-old pleasant white male scheduled for an elective colonoscopy as a part of screening for colon cancer for positive cologuard PROCEDURE PERFORMED: Colonoscopy. PREOPERATIVE DIAGNOSIS: Screening for colon cancer. IV sedation per Anesthesia. PROCEDURE: After informed consent was obtained, the patient, was brought into the endoscopy unit. IV sedation was administered by Anesthesia under continuous monitoring. Digital rectal examination was normal. Initially the Olympus CF-160 flexible video colonoscope was then inserted in the rectum, gradually advanced into the right colon without any difficulty. Multiple intensive giving abdominal pressure I was able to advance the scope into the base of the cecum. The visualized part of the cecum appeared normal. However there was somewhat rectum to cecum with thick stool noted. Careful examination was performed as the scope was gradually being withdrawn. Ileocecal valve awas visualized and appeared normal. Prep was fair.. Mucosa of the ascending colon, transverse colon, descending colon, sigmoid colon, and rectum appeared normal at her sigmoid diverticulosis seen.. Retroflexion was performed in the rectum and a 2 internal hemorrhoids were seen. The patient tolerated the procedure well. IMPRESSION: Normal-appearing colon from rectum to cecum with no evidence of colorectal neoplasia . Scattered sigmoid diverticulosis Grade 2 internal hemorrhoids RECOMMENDATIONS: Findings of this examination were discussed with the patient well as his family. He was advised to have a repeat screening colonoscopy in 10 years..
[2021-11-14 13:54] VITALS: RESP 16
[2021-11-14 14:07] VITALS: BP 115/74; PULSE 72
== END ==
LOC: ORWHC2ENDO 10:42
PROVIDERS: ATTEND Internal Medicine Gastroenterology
DX: R19.5 Other fecal abnormalities (principal); K57.30 Diverticulosis of large intestine without perforation or abscess without bleeding; K64.1 Second degree hemorrhoids; I10 Essential (primary) hypertension; I48.91 Unspecified atrial fibrillation; J44.9 Chronic obstructive pulmonary disease, unspecified; E29.1 Testicular hypofunction; I63.9 Cerebral infarction, unspecified; M19.90 Unspecified osteoarthritis, unspecified site; K21.9 Gastro-esophageal reflux disease without esophagitis; Z79.890 Hormone replacement therapy; Z79.899 Other long term (current) drug therapy
CPT/HCPCS: 45378; J2704

== ENCOUNTER → 2022-05-12 | Outpatient (CLI) | payer BC ==
--- NOTE | 2022-05-12 10:00 | CT ---
EXAMINATION TYPE: CT chest w con DATE OF EXAM: 05/12/2022 COMPARISON: 12/28/2019 HISTORY: COPD, HTN CT DLP: 568 mGycm Automated exposure control for dose reduction was used. TECHNIQUE: CT scan of the chest is performed with IV Contrast, patient injected with 100 ml mL of Isovue 300. M IP Images are created on CT scanner and reviewed. 3D reconstructed images are created on an [employer] workstation and reviewed. FINDINGS: LUNGS: Emphysematous changes are seen. No focal pneumonia or pleural effusion. No sizable pulmonary n odule or pneumothorax MEDIASTINUM: There are no greater than 1 cm hilar or mediastinal lymph nodes. No pericardial effusi on is seen. The ascending aorta diameter at the level of the main pulmonary artery is 3.8 cm. The ma in pulmonary artery diameter at the bifurcation is 2.7 cm. Ascending thoracic aorta at the level the aortic root measures 3.4 cm. Transverse dimension aortic arch 3.1 cm. Aortic the diaphragm is 2.6 cm . Coronary artery calcification noted. OTHER: Postsurgical changes of the vertebral canal. There is a scoliosis with multilevel severe dege nerative disc disease. Chronic appearing rib deformity involving the left upper rib cage posteriorly. There is a small indeterminant upper pole right renal lesion which does not meet the criteria of a s imple cyst. Stable from prior exam. Measures approximately 9 mm 33 Hounsfield units. Retrospectively stable dating back to 05-26 and therefore likely related to a hemorrhagic or highly proteinaceous [place] classification 2 cyst. Splenic granuloma noted. IMPRESSION: 1. COPD with no acute process. 2. Severe multilevel degenerative disc disease with scoliosis and suspected chronic appearing rib cag e deformity involving the left upper rib cage stable from prior exam.
== END | disposition home or self-care (01) ==
LOC: RADCTMAIN 06:17
PROVIDERS: ATTEND Family Medicine
DX: J43.9 Emphysema, unspecified (principal); F17.200 Nicotine dependence, unspecified, uncomplicated; J84.10 Pulmonary fibrosis, unspecified; M51.36 Other intervertebral disc degeneration, lumbar region; I10 Essential (primary) hypertension
CPT/HCPCS: 71260; Q9967

== ENCOUNTER → 2022-06-11 | Outpatient (CLI) | payer BC ==
--- NOTE | 2022-06-11 15:54 | P.SLEEP ---
History of Present Illness DATE: 06/11/2022 CONSULTATION/NEW PATIENT EVALUATION HISTORY OF PRESENT ILLNESS/SLEEP-WAKE EVALUATION: 62-year-old gentleman had been evaluated in the sleep center for possible obstructive sleep apnea hypopnea syndrome. SLEEP SCHEDULE: Usually sleep schedule from 9 PM to 4 AM on weekdays and from 10 PM to 5 AM on weekend. FALLING ASLEEP: No problems with falling asleep. DURING SLEEP: Patient snores and wakes up from sleep 2 times with episode of nocturia, restless legs. No history of hypnogogical hallucinations, sleep paralysis, or cataplexy. DURING THE DAY/WAKE STATE: In the morning patient wake up tired, falling asleep during the day, has problems with memory, concentration, depression, sexual dysfunction. [place] sleepiness scale is significantly increased to 19. Patient takes 2 naps during the day. PAST MEDICAL HISTORY: Hypertension, COPD, episodes of atrial fibrillation, TIA, acid reflux, peptic ulcer disease. PAST SURGICAL HISTORY: UPPP and tonsillectomy, right knee replacement, open heart surgery for well problem in childhood, cholecystectomy. MEDICATIONS: Lisinopril 5 mg once a day, pantoprazole 40 mg once a day, citalopram 10 mg once a day, sucralfate, metoprolol 25 mg twice a day, Eliquis 5 mg twice a day, atorvastatin 80 mg once a day, aspirin 81 mg once a day, trelegy inhaler. SOCIAL HISTORY: Positive for smoking for about 40 pack years, patient continued to smoke, alcohol consumption occasional. FAMILY HISTORY: Heart problems. REVIEW OF SYSTEMS: Snoring, awakenings from sleep, sleepiness during the day. No fevers. No double vision. No recent chest pain. No shortness of breath. No abdominal pain. No bleeding episodes. No blood in urine. No seizure episodes. PHYSICAL EXAMINATION: GENERAL: A pleasant patient without any distress. VITAL SIGNS: BP 122/81 , HR 75 , RR 16 , weight 213.6 pounds, height 6 foot 0 inches, body mass index 29.1 . HEENT: PERRLA, EOMI. Evaluation of oropharynx showed tongue protrudes midline, low position of soft palate Mallampati 4. NECK: Supple. No JVD. Thyroid is not palpable. 18 inches in circumference. LUNGS: Clear to percussion and to auscultation. Good air exchange. No wheezing or rhonchi. HEART: S1, S2 regular. No murmurs, gallops or rubs. ABDOMEN: Soft and nontender. Bowel sounds are present. No organomegaly appreciated. EXTREMITIES: No clubbing or cyanosis. BARREL LAPPER: Awake, alert, and oriented x3. Cranial nerves 2 to 7 intact. There is no fasciculation or atrophy noted. No focal deficits observed. ASSESSMENT: 1. Snoring, awakenings from sleep, extremely low position of soft palate Mallampati 4, wide neck 18 inches in circumference, sleepiness [place] Sleepiness Scale increased to 19. Obstructive sleep apnea-hypopnea syndrome. Hypersomnia in differential diagnosis. 2. History of episodes of atrial fibrillation. 3. History of TIA. 4. COPD. 5 history of smoking for 40 pack years continue to smoke. 6 . Hypertension. 7. Status post heart surgery for problems in childhood. 8. Acid reflux. 9 . History of peptic ulcer disease. 10. Restless leg symptoms. 11. Status post UPPP with tonsillectomy. 12. Status post cholecystectomy. PLAN: 1. Polysomnography for evaluation of patient's breathing during sleep. 2. CPAP/BiPAP titration if sleep study confirms obstructive sleep apnea-hypop christina syndrome. 3. Preferable position during sleep on the side. 4. No driving if patient feels any sleepiness. Patient is aware of civil and criminal liability for unsafe driving. 5. Sleep hygiene with regular sleep time for at least 7.5-8 hours. 6. Watching weight. Thank you very much for referring this patient for consultation. Sincerely, Niraj Dan MD, PhD, FAASM. Diplomat of [employer], Sleep Medicine Board by [employer] [facility] [place] Past Medical History Past Medical History: Atrial Fibrillation, COPD, CVA/TIA, GERD/Reflux, Hyperlipidemia, Hypertension, Osteoarthritis (OA), Prostate Disorder Additional Past Medical History / Comment(s): Varicose veins, enlarged prostate, testicular hypofunction, hx stroke in 2016 had difficulty with speech initially, resolved but since has had episodic bouts of difficulty with speech and swallowing. History of Any Multi-Drug Resistant Organisms: None Reported Past Surgical History: Back Surgery, Cardiac Ablation, Cholecystectomy, Joint Replacement, Tonsillectomy Additional Past Surgical History / Comment(s): Heart valve surgery(OPEN HEART) at age 3, neck fusion, uvula removed, right knee replacement, EP study, colonoscopies. Past Anesthesia/Blood Transfusion Reactions: No Reported Reaction Past Psychological History: No Psychological Hx Reported Smoking Status: Former smoker Past Alcohol Use History: Occasional Additional Past Alcohol Use History / Comment(s): Started smoking in 1972, 1 02/09 PPD, quit 01/28/16. Past Drug Use History: None Reported - Past Family History Mother Family Medical History: No Reported History Additional Family Medical History / Comment(s): from ID at age 48. Father Family Medical History: Myocardial Infarction (ID) Additional Family Medical History / Comment(s): from ID at age 54. Medications and Allergies Home Medications Medication Instructions Recorded Confirmed Type Apixaban [Eliquis] 5 mg PO BID #60 tab 01/28/16 11/14/21 Rx Atorvastatin [Lipitor] 80 mg PO HS 05/07/17 11/14/21 History Sucralfate [Carafate] 1 gm PO BID 05/07/17 11/14/21 History Metoprolol Tartrate [Lopressor] 25 mg PO BID #60 tab 05/09/17 11/14/21 Rx Fluticasone/Umeclidin/Vilanter 1 inhalation INHALATION QAM 10/19/18 11/14/21 History [Treleregina Ellipta 100-62.5-25] ARIPiprazole 10 mg PO QAM 11/12/21 11/14/21 History Amitriptyline HCl 100 mg PO HS 11/12/21 11/14/21 History Aspirin [Adult Low Dose Aspirin EC] 81 mg PO QAM 11/12/21 11/14/21 History Dronedarone [Multaq] 400 mg PO BID 11/12/21 11/14/21 History Escitalopram [Lexapro] 10 mg PO QAM 11/12/21 11/14/21 History Lovenox (Unkonwn Dose) 1 dose SQ BID 11/12/21 11/14/21 History Pantoprazole [Protonix] 40 mg PO QAM 11/12/21 11/14/21 History Pregabalin 150 mg PO BID 11/12/21 11/14/21 History lisinopriL [Zestril] 5 mg PO QAM 11/12/21 11/14/21 History Allergies Allergy/AdvReac Type Severity Reaction Status Date / Time No Known Allergies Allergy Verified 11/14/21 13:14 Sleep Note - Sleep Note Sleep Note: Temperature: Pulse Rate: Respiratory Rate: Blood Pressure: SpO2: Height: Weight: BMI: Neck Circumference:
== END ==
LOC: SLEEP 15:25
PROVIDERS: ATTEND Internal Medicine
DX: G47.33 Obstructive sleep apnea (adult) (pediatric) (principal); I10 Essential (primary) hypertension; J44.9 Chronic obstructive pulmonary disease, unspecified; I48.91 Unspecified atrial fibrillation; Z86.718 Personal history of other venous thrombosis and embolism; K21.9 Gastro-esophageal reflux disease without esophagitis; Z79.899 Other long term (current) drug therapy; Z79.01 Long term (current) use of anticoagulants; Z79.82 Long term (current) use of aspirin; Z98.890 Other specified postprocedural states; G25.81 Restless legs syndrome; Z87.891 Personal history of nicotine dependence; Z99.89 Dependence on other enabling machines and devices
CPT/HCPCS: 99211

== ENCOUNTER 2022-07-15 19:29 | Outpatient (CLI) | payer BC | END 2022-07-16 23:59 | LOC: 3 N SLEEP 19:29 → EDSTATUS 19:30 → 3 N SLEEP 07-16 04:00 | PROVIDERS: ATTEND Internal Medicine | DX: G47.33 Obstructive sleep apnea (adult) (pediatric) (principal); J44.9 Chronic obstructive pulmonary disease, unspecified; I10 Essential (primary) hypertension; Z86.73 Personal history of transient ischemic attack (TIA), and cerebral infarction without residual deficits; K21.9 Gastro-esophageal reflux disease without esophagitis; Z79.899 Other long term (current) drug therapy; Z79.82 Long term (current) use of aspirin; Z98.890 Other specified postprocedural states; Z87.11 Personal history of peptic ulcer disease; I48.91 Unspecified atrial fibrillation; Z99.89 Dependence on other enabling machines and devices; G25.81 Restless legs syndrome; Z87.891 Personal history of nicotine dependence | CPT/HCPCS: 95810 ==